=== PATIENT | female | born 1990 | race Caucasian/White ===

== ENCOUNTER 2023-09-01 20:46 | Outpatient (REF) | payer OTHER, SELFPAY ==
[2023-09-04 16:09] LABS: Age Gdln ACOG Testing Note (.); HPV Aptima Negative (Negative); IGP, Aptima HPV, rfx 16/18,45 Note (.)
== END 2023-09-01 20:47 | disposition home or self-care (01) ==
LOC: LAB 20:46
PROVIDERS: Visit Provider Obstetrics & Gynecology
DX: Z01.419 Encounter for gynecological examination (general) (routine) without abnormal findings (principal)
CPT/HCPCS: 87624; G0145

== ENCOUNTER 2023-09-10 10:46 | Emergency (ER) | payer OTHER, SELFPAY ==
[2023-09-10] VITALS (29 sets, daily range): BP systolic 116–142; BP diastolic 67–86; PULSE 82–119; RESP 12–38; TEMP 37.1; O2SAT 95–100; BMI 19.9
--- NOTE | 2023-09-10 11:05 | ECG_ITS ---
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
--- NOTE | 2023-09-10 11:07 | ED_ITS ---
HPI - Arrhythmia/Palpitations General Chief Complaint: Arrhythmia/Palpitations Stated Complaint: FAST HEART RATE Time Seen by Provider: 09/10/23 11:00 Source: patient Mode of arrival: walk-in History of Present Illness HPI narrative: Last night HR was in the 140s. She had pounding in her head and chest. Symptoms continue this morning although rate is less than last night. She did not take any caffeine this morning - she usually has 3 cups of coffee a day - no other caffeine or OTC supplements besides Vitamin D. She is breast feeding her infant, who is 9 months old. No history of SVT, afib, palpitations prior to this. The patient told me that she has vague symptoms - cloudiness of thought, aches to the back of the head, neck and upper shoulders/back, trouble concentrating. Uncertain about any potential ill exposures. Related Data Home Medications Medication Instructions Recorded Confirmed norethindrone (contraceptive) 0.35 0.35 mg PO DAILY 09/10/23 09/10/23 mg tablet (Jencycla) Allergies Allergy/AdvReac Type Severity Reaction Status Date / Time cefaclor [From [facility]] Allergy Severe Verified 09/10/23 11:01 Penicillins Allergy Severe Verified 09/10/23 11:01 Exam Narrative Exam Narrative: Nurses notes and vital signs reviewed and patient is not hypoxic. afebrile General: Well-appearing and in no apparent distress. Skin: Warm, dry, no pallor noted. No rash. Head: Normocephalic, atraumatic. Neck: Supple. No cervical lymphadenopathy. No meningismus. Diffuse soft tissue tenderness to the posterior neck and bilateral superior trapezii. Eye: Pupils are equal, round and EOMI. No scleral icterus. Ears, Nose, Mouth, and Throat: TM are clear, no posterior oropharynx erythema or nasal mucosal hypertrophy, uvula is mid-line Oral mucosa is moist Cardiovascular: tachycardia. Respiratory: No accessory muscle use or respiratory distress. Lungs are clear to auscultation, no wheezing, rales or rhonchi Back: No midline thoracic or lumbar vertebral tenderness. No CVA tenderness Musculoskeletal: normal ROM, no calf or popliteal tenderness, no lower extremity edema/swelling GI: Abdomen is soft, non-distended. Normal bowel sounds. No tenderness to palpation. No rebound, guarding, or rigidity noted. Neurological: A&O x4. No cranial nerve dysfunction observed. No truncal ataxia. Moves all extremities. Sensation intact. Psychiatric: Cooperative and interactive. Normal mood and affect. Constitutional Vital Signs, click to edit/add: Last Vital Signs Temp 98.7 F 09/10/23 10:56 Pulse 87 09/10/23 13:30 Resp 21 09/10/23 13:30 BP 117/82 09/10/23 13:30 Pulse Ox 100 09/10/23 13:30 O2 Del Method Room Air 09/10/23 11:05 Course Vital Signs Vital signs: Vital Signs Temperature 98.7 F 09/10/23 10:56 Pulse Rate 119 H 09/10/23 10:56 Respiratory Rate 18 09/10/23 10:56 Blood Pressure 142/86 H 09/10/23 10:56 Pulse Oximetry 98 09/10/23 10:56 Oxygen Delivery Method Room Air 09/10/23 10:56 Temperature 98.7 F 09/10/23 10:56 Pulse Rate 87 09/10/23 13:30 Respiratory Rate 21 09/10/23 13:30 Blood Pressure 117/82 09/10/23 13:30 Pulse Oximetry 100 09/10/23 13:30 Oxygen Delivery Method Room Air 09/10/23 11:05 MDM - Arrhythmia/Palpitations MDM Narrative Medical decision making narrative: Patient was placed on quality assurance monitor chassis and EKG obtained. Blood drawn and sent for evaluation. Respiratory panel obtained because of the patient's vague symptoms. She was ordered to receive normal saline IV fluid. WBC 12.4k, left shift noted. D dimer negative. CMP normal. TSH low at 0.258. T3 & T4 ordered to be checked. T4 normal. T3 is low - may have hypothyroidism. She remained tachycardic so she received another Liter NS IVF and 5mL Metoprolol IV. Her HR improved and she was discharged home. We discussed importance of PCP follow up to have thyroid further evaluated for primary anterior pituitary problem. Lab Data Attestation: I reviewed the patient's lab results. Labs: Lab Results 09/10/23 09/10/23 Range/Units 11:05 11:32 WBC 12.4 H (4.0-11.0) 10^3/uL RBC 4.45 (4.20-5.40) 10^6/uL Hgb 13.4 (12.0-16.0) g/dL Hct 40.7 (36.0-48.0) % MCV 91.5 (81.0-99.0) fL MCH 30.1 (26.7-34.0) pg MCHC 32.9 (29.9-35.2) g/dL RDW 12.7 (11.0-15.0) % Plt Count 237 (150-450) 10^3/uL MPV 10.1 (9.5-13.5) fL Neut % (Auto) 81.0 H (43.0-75.0) % Lymph % (Auto) 9.9 L (20.5-60.0) % [place] % (Auto) 8.5 (1.7-12.0) % Eos % (Auto) 0.1 L (0.9-7.0) % Baso % (Auto) 0.2 (0.2-2.0) % Neut # (Auto) 10.0 H (1.4-6.5) 10^3/uL Lymph # (Auto) 1.2 (1.2-3.8) 10^3/uL [place] # (Auto) 1.1 H (0.3-0.8) 10^3/uL Eos # (Auto) 0.0 (0.0-0.7) 10^3/uL Baso # (Auto) 0.0 (0.0-0.1) 10^3/uL Abs Immat Gran (auto) 0.04 H (0.00-0.03) 10^3/uL Imm/Tot Granulo (auto) 0.3 (0.0-0.5) % D-Dimer 0.24 (<=0.59) mg/L FEU Sodium 139 (136-145) mmol/L Potassium 3.8 (3.5-5.1) mmol/L Chloride 102 (98-107) mmol/L Carbon Dioxide 26.6 (21.0-32.0) mmol/L Anion Gap 14.2 BUN 11.0 (7.0-18.0) mg/dL Creatinine 0.72 (0.55-1.02) mg/dL Est GFR ( Amer) >60 (>=60) Est GFR (Non-Af Amer) >60 (>=60) BUN/Creatinine Ratio 15.3 Glucose 94 (74-106) mg/dL Calcium 8.8 (8.5-10.1) mg/dL Total Bilirubin 0.7 (0.2-1.0) mg/dL AST 15 (15-37) U/L ALT 27 (14-59) U/L Alkaline Phosphatase 163 H (46-116) U/L Total Protein 7.9 (6.4-8.2) g/dL Albumin 3.9 (3.4-5.0) g/dL Globulin 4.0 g/dL Albumin/Globulin Ratio 1.0 TSH 0.258 L (0.358-3.740) uIU/mL Free T4 0.88 (0.76-1.46) ng/dL Free T3 2.13 L (2.18-3.98) pg/mL Adenovirus (PCR) Not detected (NOT DETECTE) C. pneumoniae DNA (PCR) Not detected (NOT DETECTE) Coronavirus Type OC43 Not detected (NOT DETECTE) Coronavirus Type HKU1 Not detected (NOT DETECTE) Coronavirus Type 229E Not detected (NOT DETECTE) Coronavirus Type NL63 Not detected (NOT DETECTE) Human Metapneumovir PCR Not detected (NOT DETECTE) M. pneumoniae (PCR) Not detected (NOT DETECTE) Parainfluenza PCR Not detected (NOT DETECTE) Parainfluenza 2 (PCR) Not detected (NOT DETECTE) Parainfluenza 3 (PCR) Not detected (NOT DETECTE) Parainfluenza 4 (PCR) Not detected (NOT DETECTE) RSV (RT-PCR) Not detected (NOT DETECTE) Entero/Rhino (PCR) Not detected (NOT DETECTE) SARS-CoV-2 (PCR) Not detected (NOT DETECTE) Bordetella pertussis (PCR) Not detected (NOT DETECTE) B parapertussis DNA PCR Not detected (NOT DETECTE) Influenza Type A (PCR) Not detected (NOT DETECTE) Influenza Type B (PCR) Not detected (NOT DETECTE) ECG Data Attestation: I personally reviewed and interpreted this ECG as follows: Interpretation: EKG interpretation: Emergency Department physician interpretation. Sinus tachycardia at 108bpm. Normal axis, Short QTc interval. Inferolateral T wave inversion. No ST segment elevation. Subtle ST depression. Discharge Plan Discharge Chief Complaint: Arrhythmia/Palpitations Clinical Impression: Palpitations, Hypothyroidism Patient Disposition: Home, Self-Care Time of Disposition Decision: 14:04 Prescriptions / Home Meds: No Action norethindrone (contraceptive) [Jencycla] 0.35 mg tablet 0.35 mg PO DAILY Instructions: Heart Palpitations (ED), Hypothyroidism (ED) Stand Alone Forms: Portal Instructions Referrals: Physician,Non-Staff, MD [Primary Care Provider] - 1 week
[2023-09-10] MEDS: 0.9 % SODIUM CHLORIDE 1,000 ML 1000 ML IV ×2 (11:17→13:07)
[2023-09-10 11:18] LABS: Basophils Percent Auto 0.2 % (0.2-2.0); Eosinophils Percent Auto 0.1 % (0.9-7.0); Hematocrit 40.7 % (36.0-48.0); Hemoglobin 13.4 g/dL (12.0-16.0); Immature Granulocytes Abs Auto 0.04 10^3/uL (0.00-0.03); Immature Granulocytes Pct Auto 0.3 % (0.0-0.5); Lymphocytes Absolute Auto 1.2 10^3/uL (1.2-3.8); Lymphocytes Percent Auto 9.9 % (20.5-60.0); Mean Corpuscular HGB Conc 32.9 g/dL (29.9-35.2); Mean Corpuscular Hemoglobin 30.1 pg (26.7-34.0); Mean Corpuscular Volume 91.5 fL (81.0-99.0); Mean Platelet Volume 10.1 fL (9.5-13.5); Monocytes Absolute Auto 1.1 10^3/uL (0.3-0.8); Monocytes Percent Auto 8.5 % (1.7-12.0); Platelet Count 237 10^3/uL (150-450); Red Blood Count 4.45 10^6/uL (4.20-5.40); Red Cell Distribution Width 12.7 % (11.0-15.0); White Blood Count 12.4 10^3/uL (4.0-11.0)
[2023-09-10 11:29] LABS: D Dimer 0.24 mg/L FEU (<=0.59)
--- OUTSIDE RECORDS SUMMARY | 2023-09-10 11:30 | XMS_ITS | CCD ---
Author Name Unknown Address [address] [place] [address] Organization [facility] Care Team Providers Care Law Office Receptionist Name Role Phone Shannan Torres Unavailable Paulina Laguerre Unavailable WONDERLY, DR STEVE Enriquez Primary Care Unavailable DIEGO ., DR LOMAX Admitting Unavailable DIEGO ., DR LOMAX Attending Unavailable DIEGO ., DR LOMAX Consulting Unavailable REQUEST, DR NONE LISTED Primary Care Unavaila ble SCOTT ., HERNANDEZ Admitting Unavailable SCOTT ., HERNANDEZ Attending Unavailable SCOTT ., HERNANDEZ Consulting Unavailable DIEGO ., DR LOMAX Consulting Unavailable DIEGO ., DR LOMAX Admitting Unavailable DIEGO ., DR LOMAX Attending Unavailable ALEXANDRIA, DR FARZANEH Condon Consulting Unavailable DIEGO ., DR LOMAX Admitting Unavailable DIEGO ., DR LOMAX Attending Unavailable DIEGO ., DR LOMAX Consulting Unavailable DIEGO ., DR LOMAX Attending Unavailable DIEGO ., DR LOMAX Consulting Unavailable DIEGO ., DR LOMAX Admitting Unavailable ZIEBER, DR MEL Olsen Consulting Unavailable WONDERLY, DR STEVE Enriquez Consulting Unavailable WONDERLY, DR STEVE Enriquez Primary Care Unavailable DIEGO ., DR LOMAX Attending Unavailable DIEGO ., DR LOMAX Consulting Unavailable DIEGO ., DR LOMAX Admitting Unavailable DIEGO ., DR LOMAX Admitting Unavailable DIEGO ., DR LOMAX Attending Unavailable REQUEST, NONE LISTED Primary Care Unavaila ble SHEILA, DR STEVE Enriquez Primary Care Unavailable DIEGO ., DR LOMAX Admitting Unavailable DIEGO ., DR LOMAX Attending Unavailable DIEGO ., DR LOMAX Consulting Unavailable DIEGO ., DR LOMAX Procedure Practitioner Unavail able ZIEBER, DR MEL Olsen Consulting Unavailable REQUEST, DR NONE LISTED Primary Care Unavaila ble SCOTT ., HERNANDEZ Admitting Unavailable SCOTT ., HERNANDEZ Attending Unavailable SCOTT ., HERNANDEZ Consulting Unavailable PAY ., DR DAVIS Admitting Unavailable PAY ., DR DAVIS Attending Unavailable PAY ., DR DAVIS Consulting Unavailable DIEGO ., DR LOMAX Attending Unavailable DIEGO ., DR LOMAX Consulting Unavailable DIEGO ., DR LOMAX Admitting Unavailable DIEGO ., DR LOMAX Attending Unavailable DIEGO ., DR LOMAX Consulting Unavailable DIEGO ., DR LOMAX Admitting Unavailable WONDERLY, DR STEVE Enriquez Primary Care Unavailable DIEGO ., DR LOMAX Admitting Unavailable DIEGO ., DR LOMAX Consulting Unavailable DIEGO ., DR LOMAX Attending Unavailable DIEGO, DAMI Attending Unavailable Allergies Allergy Classification Reported Allergen(s) Allergy Type Date of Onset Reaction(s) Facility (1 source) Cefaclor Drug Allergy [facility] Other (1 source) Cefaclor Drug Allergy [facility] (1 source) Penicillins Drug allergy (disorder) [facility] Medications Current Medications Medication Drug Class(es) Dates Sig (Normalized) Sig (Original) Ethinyl Estradiol / Ferrous fumarate / Norethindrone (1 source) Estrogen Problems Active Problems Problem Classification Problem Date Documented Da te Episodic/Chronic Menstrual disorders (4 sources) Irregular menstruation, unspecified; Translations: [IRREGULAR MENSTRUATION UNSPECIFIED] Onset: 04-15-2022 Chronic Other complications of (3 sources) Maternal care for excessive growth, unspecified trimester, not applicable or unspecified; Translations: [MAT CARE EXCSS FTL GRTH UNS TRI UNS] Onset: 11-06-2022 Episodic Other complications of (1 source) Maternal care for excessive growth, third trimester, not applicable or unspecified; Translations: [MAT CARE EXCSS FTL GRTH 3RD TRI UNS] Onset: 11-09-2022 Episodic Other and delivery including normal (20 sources) Encounter for routine follow-up; Translations: [Encounter for supervision of normal , unspecified, third trimester] Onset: 05-12-2022 Episodic Residual codes; unclassified (1 source) 40 weeks gestation of ; Translations: [40 WEEKS GESTATION OF ] Onset: 12-11-2022 Episodic Residual codes; unclassified (1 source) 36 weeks gestation of ; Translations: [36 WEEKS GESTATION OF ] Onset: 11-09-2022 Episodic Unclassified (1 source) PERSONAL HISTORY OF COVID-19; Translations: [PERSONAL HISTORY OF COVID-19] Onset: 12-11-2022 Past or Other Problems Problem Classification Problem Date Documented Date Episodic/Chronic Diabetes mellitus without complication (1 source) Other abnormal glucose; Translations: [OTHER ABNORMAL GLUCOSE] Onset: 08-27-2022 Episodic Immunizations and screening for infectious disease (5 sources) Encounter for screening for other viral diseases; Translations: [Contact with and (suspected) exposure to other viral communicable diseases] Onset: 06-17-2021 Resolved: 06-21-2021 Episodic Other complications of (4 sources) Other specified related conditions, unspecified trimester; Translations: [OTH SPEC PREG RELATED COND UNS TRI] Onset: 08-23-2022 Episodic Other female genital disorders (1 source) Other specified noninflammatory disorders of vagina; Translations: [OTH SPEC NONINFLAMMATORY D/O VAGINA] Onset: 08-08-2022 Episodic Other screening for suspected conditions (not mental disorders or infectious disease) (9 sources) Encounter for screening for diabetes mellitus; Translations: [Encounter for screening for malignant neoplasm of cervix] Onset: 07-16-2022 Episodic Residual codes; unclassified (1 source) Weeks of gestation of not specified; Translations: [WEEKS GESTATION NOT SPEC] Onset: 08-27-2022 Episodic Viral infection (1 source) COVID-19 Onset: 06-21-2021 Resolved: 06-21-2021 Results Test Name Value Interpretation Reference Range Facility CBC AUTO DIFFon 12-03-2022 BASO # 0.0 103/ul Normal 0.0-0.1 [facility] Comment on above: Performed By: #### R UBIGG #### [facility] [address] [address] [address] Radha Yu Basophils/100 WBC (Bld) 0.2 % Normal 0.2-2.0 [facility] Comment on above: Performed By: #### R UBIGG #### [facility] [address] [address] [address] Radha Yu EO # 0.0 103/ul Normal 0.0-0.7 [facility] Comment on above: Performed By: #### R UBIGG #### [facility] [address] [address] [address] Radha Yu Eosinophils/100 WBC (Bld) 0.1 % Critically low 0.9-7.0 [facility] Comment on above: Performed By: #### R UBIGG #### [facility] [address] [place] [address] Dr. Radha Yu Erythrocyte distribution width (RBC) [Ratio] 13.2 % Normal 11.0-15.0 [facility] Comment on above: Performed By: #### R UBIGG #### [facility] [address] [place] [address] Dr. Radha Yu Hematocrit (Bld) [Volume fraction] 36.8 % Normal 36.0-48.0 [facility] Comment on above: Performed By: #### R UBIGG #### [facility] [address] [place] [address] Dr. Radha Yu Hemoglobin (Bld) [Mass/Vol] 12.3 g/dL Normal 12.0-16.0 [facility] Comment on above: Performed By: #### R UBIGG #### [facility] [address] [place] [address] Dr. Radha Yu IG # 0.09 10e3/ul Critically high 0.00-0.03 [facility] Comment on above: Performed By: #### R UBIGG #### [facility] [address] [place] [address] Dr. Radha Yu IG % 0.6 % Critically high 0.0-0.5 [facility] Comment on above: Performed By: #### R UBIGG #### [facility] [address] [place] [address] Dr. Radha Yu LYMPH # 1.9 103/ul Normal 1.2-3.8 [facility] Comment on above: Performed By: #### R UBIGG #### [facility] [address] [place] [address] Dr. Radha Yu Lymphocytes/100 WBC (Bld) 12.5 % Critically low 20.5-60.0 [facility] Comment on above: Performed By: #### R UBIGG #### [facility] [address] [place] [address] Dr. Radha Yu MANUAL DIFF REQ NO Normal [facility] Comment on above: Performed By: #### R UBIGG #### [facility] [address] [place] [address] Dr. Radha Yu MCH (RBC) [Entitic mass] 30.3 pg Normal 26.7-34.0 [facility] Comment on above: Performed By: #### R UBIGG #### [facility] [address] [place] [address] Dr. Radha Yu MCHC (RBC) [Mass/Vol] 33.4 g/dL Normal 29.9-35.2 [facility] Comment on above: Performed By: #### R UBIGG #### [facility] [address] [place] [address] Dr. Radha Yu MCV (RBC) [Entitic vol] 90.6 fL Normal 81.0-99.0 [facility] Comment on above: Performed By: #### R UBIGG #### [facility] [address] [place] [address] Dr. Radha Yu MONO # 1.1 103/ul Critically high 0.3-0.8 [facility] Comment on above: Performed By: #### R UBIGG #### [facility] [address] [place] [address] Dr. Radha Yu Monocytes/100 WBC (Bld) 7.4 % Normal 1.7-12.0 [facility] Comment on above: Performed By: #### R UBIGG #### [facility] [address] [place] [address] Dr. Radha Yu NEUT # 12.1 103/ul Critically high 1.4-6.[address] [facility] Comment on above: Performed By: #### R UBIGG #### [facility] [address] [place] [address] Dr. Radha Yu Neutrophils/100 WBC (Bld) 79.2 % Critically high 43.0-75.0 [facility] Comment on above: Performed By: #### R UBIGG #### [facility] [address] [place] [address] Dr. Radha Yu Platelet mean volume (Bld) [Entitic vol] 10.4 fL Normal 9.5-13.5 [facility] Comment on above: Performed By: #### R UBIGG #### [facility] [address] [place] [address] Dr. Radha Yu PLT 193 103/ul Normal 150-450 [facility] Comment on above: Performed By: #### R UBIGG #### [facility] [address] [place] [address] Dr. Radha Yu RBC 4.06 106/ul Critically low 4.20-5.40 [facility] Comment on above: Performed By: #### R UBIGG #### [facility] [address] [place] [address] Dr. Radha Yu WBC 15.2 103/ul Critically high 4.0-11.0 [facility] Comment on above: Performed By: #### R UBIGG #### [facility] [address] [place] [address] Dr. Radha Yu BASO # 0.0 103/ul Normal 0.0-0.1 [facility] Comment on above: Performed By: #### H CVPCRR #### [facility] [address] [place] [address] Dr. Radha Yu Basophils/100 WBC (Bld) 0.4 % Normal 0.2-2.0 [facility] Comment on above: Performed By: #### H CVPCRR #### [facility] [address] [place] [address] Dr. Radha Yu EO # 0.1 103/ul Normal 0.0-0.7 [facility] Comment on above: Performed By: #### H CVPCRR #### [facility] [address] [place] [address] Dr. Radha Yu Eosinophils/100 WBC (Bld) 1.0 % Normal 0.9-7.0 [facility] Comment on above: Performed By: #### H CVPCRR #### [facility] [address] [place] [address] Dr. Radha Yu Erythrocyte distribution width (RBC) [Ratio] 13.6 % Normal 11.0-15.0 [facility] Comment on above: Performed By: #### H CVPCRR #### [facility] [address] [place] [address] Dr. Radha Yu Hematocrit (Bld) [Volume fraction] 37.3 % Normal 36.0-48.0 [facility] Comment on above: Performed By: #### H CVPCRR #### [facility] [address] [place] [address] Dr. Radha Yu Hemoglobin (Bld) [Mass/Vol] 12.9 g/dL Normal 12.0-16.0 [facility] Comment on above: Performed By: #### H CVPCRR #### [facility] [address] [place] [address] Dr. Radha Yu IG # 0.03 10e3/ul Normal 0.00-0.03 [facility] Comment on above: Performed By: #### H CVPCRR #### [facility] [address] [place] [address] Dr. Radha Yu IG % 0.3 % Normal 0.0-0.5 [facility] Comment on above: Performed By: #### H CVPCRR #### [facility] [address] [place] [address] Dr. Radha Yu LYMPH # 2.8 103/ul Normal 1.2-3.8 [facility] Comment on above: Performed By: #### H CVPCRR #### [facility] [address] [place] [address] Dr. Radha Yu Lymphocytes/100 WBC (Bld) 27.0 % Normal 20.5-60.0 [facility] Comment on above: Performed By: #### H CVPCRR #### [facility] [address] [place] [address] Dr. Radha Yu MANUAL DIFF REQ NO Normal [facility] Comment on above: Performed By: #### H CVPCRR #### [facility] [address] [place] [address] Dr. Rahda Yu MCH (RBC) [Entitic mass] 30.4 pg Normal 26.7-34.0 [facility] Comment on above: Performed By: #### H CVPCRR #### [facility] [address] [place] [address] Dr. Radha Yu MCHC (RBC) [Mass/Vol] 34.6 g/dL Normal 29.9-35.2 [facility] Comment on above: Performed By: #### H CVPCRR #### [facility] [address] [place] [address] Dr. Radha Yu MCV (RBC) [Entitic vol] 88.0 fL Normal 81.0-99.0 [facility] Comment on above: Performed By: #### H CVPCRR #### [facility] [address] [place] [address] Dr. Radha Yu MONO # 1.0 103/ul Critically high 0.3-0.8 [facility] Comment on above: Performed By: #### H CVPCRR #### [facility] [address] [place] [address] Dr. Radha Yu Monocytes/100 WBC (Bld) 9.7 % Normal 1.7-12.0 [facility] Comment on above: Performed By: #### H CVPCRR #### [facility] [address] [place] [address] Dr. Radha Yu NEUT # 6.5 103/ul Normal 1.4-6.5 [facility] Comment on above: Performed By: #### H CVPCRR #### [facility] [address] [place] [address] Dr. Radha Yu Neutrophils/100 WBC (Bld) 61.6 % Normal 43.0-75.0 [facility] Comment on above: Performed By: #### H CVPCRR #### [facility] [address] [place] [address] Dr. Radha Yu Platelet mean volume (Bld) [Entitic vol] 11.9 fL Normal 9.5-13.5 [facility] Comment on above: Performed By: #### H CVPCRR #### [facility] [address] [address] [address] Radha Yu PLT 237 103/ul Normal 150-450 [facility] Comment on above: Performed By: #### H CVPCRR #### [facility] [address] [address] [address] Radha Yu RBC 4.24 106/ul Normal 4.20-5.40 [facility] Comment on above: Performed By: #### H CVPCRR #### [facility] [address] [place] [address] Dr. Radha Yu WBC 10.5 103/ul Normal 4.0-11.0 [facility] Comment on above: Performed By: #### H CVPCRR #### [facility] [address] [place] [address] Dr. Radha Yu DRUG SCREEN RAPID (URINE)on 12-03-2022 AMP Negative Normal NEGATIVE [facility] Comment on above: Performed By: #### R UBIGG #### [facility] [address] [place] [address] Dr. Radha Yu BAR Negative Normal NEGATIVE [facility] Comment on above: Performed By: #### R UBIGG #### [facility] [address] [place] [address] Dr. Radha Yu BUP Negative Normal NEGATIVE [facility] Comment on above: Performed By: #### R UBIGG #### [facility] [address] [place] [address] Dr. Radha Yu BZO Negative Normal NEGATIVE [facility] Comment on above: Performed By: #### R UBIGG #### [facility] [address] [place] [address] Dr. Radha Yu JOYCE Negative Normal NEGATIVE [facility] Comment on above: Performed By: #### R UBIGG #### [facility] [address] [place] [address] Dr. Radha Yu CUT-OFFS SEE BELOW Normal [facility] Comment on above: Result Comment: AMP (Amphetamine): 500ng/mL, BAR (Barbituates): 200 ng/mL, BZO (Benzodiazepines): 150 ng/mL, BUP (Buprenorphine): 10 ng/mL, JOYCE (Cocaine): 150 ng/mL, mAMP (Methamphetamine): 500 ng/mL, MTD (Methadone): 200 ng/mL, OPI (Opiates): 100 ng/mL, OXY (Oxycodone): 100 ng/mL, PCP (Phencyclidine): 25 ng/mL, PPX (Propoxyphene): 300 ng/mL, THC (Cannabinoids): 50 ng/mL, TCA (Trycyclic Antidepressants): 300 ng/mL Performed By: #### R UBIGG #### [facility] [address] [place] [address] Dr. Radha Yu DRUG CUT HEADER DRUG CLASS TEST SYSTEM CUT-OFF CONCENTRATIONS ARE FOLLOWS: Normal [facility] Comment on above: Performed By: #### R UBIGG #### [facility] [address] [place] [address] Dr. Radha Yu mAMP Negative Normal NEGATIVE [facility] Comment on above: Performed By: #### R UBIGG #### [facility] [address] [place] [address] Dr. Radha Yu MTD Negative Normal NEGATIVE [facility] Comment on above: Performed By: #### R UBIGG #### [facility] [address] [place] [address] Dr. Radha Yu OPI Negative Normal NEGATIVE [facility] Comment on above: Performed By: #### R UBIGG #### [facility] [address] [place] [address] Dr. Radha Yu OXY Negative Normal NEGATIVE [facility] Comment on above: Performed By: #### R UBIGG #### [facility] [address] [place] [address] Dr. Radha Yu PCP Negative Normal NEGATIVE [facility] Comment on above: Performed By: #### R UBIGG #### [facility] [address] [address] [address] Radha Yu PPX Negative Normal NEGATIVE [facility] Comment on above: Performed By: #### R UBIGG #### [facility] [address] [address] [address] Radha Yu TCA Negative Normal NEGATIVE [facility] Comment on above: Performed By: #### R UBIGG #### [facility] [address] [address] [address] Radha Yu THC Negative Normal NEGATIVE [facility] Comment on above: Performed By: #### R UBIGG #### [facility] [address] [place] [address] Dr. Radha Yu TYPE AND SCREENon 12-03-2022 TYPE AND SCREEN Negative Normal [facility] Comment on above: Performed By: #### H CVPCRR #### [facility] [address] [place] [address] Dr. Radha Yu US PREG GROWTHon 11-06-2022 US PREG GROWTH EXAMINATION: US PREG GROWTH HISTORY: Large for gestation age fetus COMPARISON: Ultrasound anatomy 07/12/2022 FINDINGS: Heart Rate: 149.0 bpm Number: 1.0 Position: Cephalic Amniotic Fluid Volume: 21.0 cm Maximum Vertical Pocket: 7.0 cm BIOMETRY: BPD: 9.1 cm cm; 36 weeks 5 days HC: 33.4 cmcm; 38 weeks 2 days AC: 32.5 cm cm; 36 weeks 3 days FL: 7.1 cm cm; 36 weeks 3 days EFW: 2997.5 grams; 53% FL/AC: 21.8 FL/BPD: 78.4 HC/AC: 1.0 GESTATIONAL AGE: Age by EDC: 36 weeks 5 days MIKE by EDC: 11/29/2022 Age by US: 37 weeks 0 days MIKE by US: 11/27/2022 IMPRESSION: 1. Single live intrauterine with growth detailed above. Electronically authenticated by: MEL OLIVIER Date: 2022-11-06 16:26 Normal [facility] GROUP B STREP CULTUREon 10-16 S. agalactiae Ag Ql (Unsp spec) Culture Observations: NEGATIVE FOR GROUP B STREPTOCOCCUS. Normal [facility] Comment on above: Performed By: #### H CVPCRR #### [facility] [address] [place] [address] Dr. Radha Yu GTT 3 HR PREGon 08-23-2022 Glucose [Mass/Vol] 77 mg/dL Normal 74-106 [facility] Comment on above: Performed By: #### H CVPCRR #### [facility] [address] [place] [address] Dr. Radha Yu Glucose [Mass/Vol] 169 mg/dL Normal [facility] Comment on above: Performed By: #### H CVPCRR #### [facility] [address] [place] [address] Dr. Radha Yu Glucose [Mass/Vol] 152 mg/dL Normal [facility] Comment on above: Performed By: #### H CVPCRR #### [facility] [address] [place] [address] Dr. Radha Yu Glucose [Mass/Vol] 107 mg/dL Normal [facility] Comment on above: Performed By: #### H CVPCRR #### [facility] [address] [place] [address] Dr. Radha Yu PAP ACOG PANEL 2: 30 to 65on 08-15-2022 . . Normal [facility] Comment on above: Result Comment: Perf ormed at: [facility] Performed By: #### R UBIGG #### [facility] [address] [place] [address] Dr. Radha Yu Age Gdln ACOG Testing 30-65 [facility] Comment on above: Performed By: #### R UBIGG #### [facility] [address] [place] [address] Dr. Radha Yu DIAGNOSIS: Comment [facility] Comment on above: Result Comment: NEGA TIVE FOR INTRAEPITHELIAL LESION OR MALIGNANCY. FUNGAL ORGANISMS MORPHOLOGICALLY CONSISTENT WITH JILLIAN SPECIES ARE PRESENT. THIS SPECIMEN WAS RESCREENED PART OF OUR [employer]LEET MANAGER PROGRAM. Performed at: [facility] Performed By: #### R UBIGG #### [facility] [address] [place] [address] Dr. Radha Yu HPV Aptima Negative Normal Negative [facility] Comment on above: Result Comment: This nucleic acid amplification test detects fourteen high-risk HPV types (16,18,31,33,35,39,45,51,52,56,58,59,66,68) without differentiation. Performed at: =G Performed By: #### R UBIGG #### [facility] [address] [place] [address] Dr. Radha Yu HPV Genotype Reflex Comment Normal [facility] Comment on above: Result Comment: Crit eria not met, HPV Genotype not performed. Performed at: [facility] Performed By: #### R UBIGG #### [facility] [address] [place] [address] Dr. Radha Yu Methodology: Comment Normal [facility] Comment on above: Result Comment: This liquid based ThinPrep(R) pap test was screened with the use of an image guided system. Performed at: [facility] Performed By: #### R UBIGG #### [facility] [address] [place] [address] Dr. Radha Yu Note: Comment Normal [facility] Comment on above: Result Comment: The Pap smear is a screening test designed to aid in the detection of premalignant and malignant conditions of the uterine cervix. It is not a diagnostic procedure and should not be used as the sole means of detecting cervical cancer. Both false-positive and false-negative reports do occur. . Performed at: WB Performed By: #### R UBIGG #### [facility] [address] [place] [address] Dr. Radha Yu Performed by: Comment Normal [facility] Comment on above: Result Comment: Ambreen Matias, Labels Molder (ASCP) Performed at: WB Performed By: #### R UBIGG #### [facility] [address] [place] [address] Dr. Radha Yu QC reviewed by: Comment Normal [facility] Comment on above: Result Comment: Tanya Mueller, Supervisory Labels Molder (ASCP) Performed at: WB Performed By: #### R UBIGG #### [facility] [address] [place] [address] Dr. Radha Yu Specimen adequacy: Comment Normal [facility] Comment on above: Result Comment: Sati sfactory for evaluation. Endocervical and/or squamous metaplastic cells (endocervical component) are present. Performed at: WB Performed By: #### R UBIGG #### [facility] [address] [place] [address] Dr. Radha Yu CBC AUTO DIFFon 08-07-2022 BASO # 0.0 103/ul Normal 0.0-0.1 [facility] Comment on above: Performed By: #### C BC #### [facility] [address] [place] [address] Dr. Radha Yu Basophils/100 WBC (Bld) 0.2 % Normal 0.2-2.0 [facility] Comment on above: Performed By: #### C BC #### [facility] [address] [place] [address] Dr. Radha Yu EO # 0.0 103/ul Normal 0.0-0.7 [facility] Comment on above: Performed By: #### C BC #### [facility] [address] [place] [address] Dr. Radha Yu Eosinophils/100 WBC (Bld) 0.4 % Critically low 0.9-7.0 [facility] Comment on above: Performed By: #### C BC #### [facility] [address] [place] [address] Dr. Radha Yu Erythrocyte distribution width (RBC) [Ratio] 13.2 % Normal 11.0-15.0 [facility] Comment on above: Performed By: #### C BC #### [facility] [address] [place] [address] Dr. Radha Yu Hematocrit (Bld) [Volume fraction] 34.1 % Critically low 36.0-48.0 [facility] Comment on above: Performed By: #### C BC #### [facility] [address] [place] [address] Dr. Radha Yu Hemoglobin (Bld) [Mass/Vol] 11.4 g/dL Critically low 12.0-16.0 [facility] Comment on above: Performed By: #### C BC #### [facility] [address] [place] [address] Dr. Radha Yu IG # 0.03 10e3/ul Normal 0.00-0.03 [facility] Comment on above: Performed By: #### C BC #### [facility] [address] [place] [address] Dr. Radha Yu IG % 0.3 % Normal 0.0-0.5 [facility] Comment on above: Performed By: #### C BC #### [facility] [address] [place] [address] Dr. Radha Yu LYMPH # 1.9 103/ul Normal 1.2-3.8 [facility] Comment on above: Performed By: #### C BC #### [facility] [address] [place] [address] Dr. Radha Yu Lymphocytes/100 WBC (Bld) 18.8 % Critically low 20.5-60.0 [facility] Comment on above: Performed By: #### C BC #### [facility] [address] [place] [address] Dr. Radha Yu MANUAL DIFF REQ NO Normal [facility] Comment on above: Performed By: #### C BC #### [facility] [address] [place] [address] Dr. Radha Yu MCH (RBC) [Entitic mass] 31.1 pg Normal 26.7-34.0 [facility] Comment on above: Performed By: #### C BC #### [facility] [address] [place] [address] Dr. Radha Yu MCHC (RBC) [Mass/Vol] 33.4 g/dL Normal 29.9-35.2 [facility] Comment on above: Performed By: #### C BC #### [facility] [address] [place] [address] Dr. Radha Yu MCV (RBC) [Entitic vol] 92.9 fL Normal 81.0-99.0 [facility] Comment on above: Performed By: #### C BC #### [facility] [address] [place] [address] Dr. Radha Yu MONO # 0.4 103/ul Normal 0.3-0.8 [facility] Comment on above: Performed By: #### C BC #### [facility] [address] [place] [address] Dr. Radha Yu Monocytes/100 WBC (Bld) 4.4 % Normal 1.7-12.0 [facility] Comment on above: Performed By: #### C BC #### [facility] [address] [place] [address] Dr. Radha Yu NEUT # 7.5 103/ul Critically high 1.4-6.5 [facility] Comment on above: Performed By: #### C BC #### [facility] [address] [place] [address] Dr. Radha Yu Neutrophils/100 WBC (Bld) 75.9 % Critically high 43.0-75.0 [facility] Comment on above: Performed By: #### C BC #### [facility] [address] [place] [address] Dr. Radha Yu Platelet mean volume (Bld) [Entitic vol] 9.8 fL Normal 9.5-13.5 [facility] Comment on above: Performed By: #### C BC #### [facility] [address] [place] [address] Dr. Radha Yu PLT 250 103/ul Normal 150-450 [facility] Comment on above: Performed By: #### C BC #### [facility] [address] [place] [address] Dr. Radha Yu RBC 3.67 106/ul Critically low 4.20-5.40 [facility] Comment on above: Performed By: #### C BC #### [facility] [address] [place] [address] Dr. Radha Yu WBC 9.8 103/ul Normal 4.0-11.0 [facility] Comment on above: Performed By: #### C BC #### [facility] [address] [place] [address] Dr. Radha Yu CHLAMYDIA/GONOCOCCUS DANELLE (SW AB/URINE/PAPon 08-07-2022 Chlamydia trachomatis, DANELLE Negative Normal Negative [facility] Comment on above: Performed By: #### C T/NGNA #### [facility] [address] [address] [address] Radha Yu Neisseria gonorrhoeae, DANELLE Negative Normal Negative [facility] Comment on above: Performed By: #### C T/NGNA #### [facility] [address] [place] [address] Dr. Radha Yu GLUCOSE - 1HRon 08-07-2022 Glucose [Mass/Vol] 151 mg/dL Critically high 74-106 [facility] Comment on above: Performed By: #### G LU1HR #### [facility] [address] [place] [address] Dr. Radha Yu VAGINITIS/VAGINOSIS DNA PROB Sean 08-06-2022 Jillian species Positive Abnormal Negative [facility] Comment on above: Performed By: #### R UBIGG #### [facility] [address] [place] [address] Dr. Radha Yu Gardnerella vaginalis Negative Normal Negative [facility] Comment on above: Performed By: #### R UBIGG #### [facility] [address] [place] [address] Dr. Radha Yu Trichomonas vaginalis Negative Normal Negative [facility] Comment on above: Performed By: #### R UBIGG #### [facility] [address] [place] [address] Dr. Radha Yu AFP MATERNAL FOR SPINA BIFID Aon 07-16-2022 AFP MoM 1.29 Normal [facility] Comment on above: Performed By: #### R UBIGG #### [facility] [address] [place] [address] Dr. Radha Yu AFP Value 75.6 ng/mL Normal [facility] Comment on above: Performed By: #### R UBIGG #### [facility] [address] [address] [address] Radha Yu AFP, Serum for Spina Bifida Report Normal [facility] Comment on above: Performed By: #### R UBIGG #### [facility] [address] [address] [address] Radha Yu Comment Comment Normal [facility] Comment on above: Result Comment: Adele Montez, Ph.D., [facility] Director . References: Available Upon Request. . Multiples Of Median Cutoffs For AFP Elevations Valdez 2.5 Black 2.8 IDD 2.0 Twins 4.5 Abbreviation Definitions IDD - Insulin Dep Diabetes OSBR - Open Spina Bifida Risk . For further inquiries contact [employer] [facility] at [phone]. . This test was developed and its performance characteristics determined by [employer]. It has not been cleared or approved by the Food and Drug Administration. Performed By: #### R UBIGG #### [facility] [address] [address] [address] aRdha Yu Gest Age Collection Date 20.0 weeks Normal [facility] Comment on above: Performed By: #### R UBIGG #### [facility] [address] [address] [address] Radha Yu Gestat, Age Based on Ultrasound Normal [facility] Comment on above: Result Comment: 8.0 on 04/19/2022 Recalculations are not recommended when gestational dating by LMP and ultrasound are within 10 days. Performed By: #### R UBIGG #### [facility] [address] [place] [address] Dr. Radha Yu Insulin Dep Diabetes No Normal [facility] Comment on above: Performed By: #### R UBIGG #### [facility] [address] [place] [address] Dr. Radha Yu Interpretation Comment Normal [facility] Comment on above: Result Comment: Inte rpretation: Screen Negative . This result is screen negative for OSB. The AFP MoM calculated is based on the gestational age provided. MS-AFP can identify up to 80% of open neural tube defects. Closed neural tube defects and some open defects may not be detected by this test. This test does not screen for Down Syndrome or Trisomy 18. If screening for Down Syndrome or Trisomy 18 is desired, contact [employer] to discuss available options. The [employer] recommends amniocentesis be offered to women age 35 and older. Performed By: #### R UBIGG #### [facility] [address] [place] [address] Dr. Radha Yu [age] Normal [facility] Comment on above: Performed By: #### R UBIGG #### [facility] [address] [place] [address] Dr. Radha Yu Multiple Gestation No Normal [facility] Comment on above: Performed By: #### R UBIGG #### [facility] [address] [place] [address] Dr. Radha Yu OSBR Risk 1 [place] 4947 Normal [facility] Comment on above: Performed By: #### R UBIGG #### [facility] [address] [place] [address] Dr. Radha Yu PDF . [facility] Comment on above: Performed By: #### R UBIGG #### [facility] [address] [place] [address] Dr. Radha Yu Race [facility] Comment on above: Performed By: #### R UBIGG #### [facility] [address] [place] [address] Dr. Radha Yu Test Results: Negative Normal [facility] Comment on above: Performed By: #### R UBIGG #### [facility] [address] [place] [address] Dr. Radha Yu US PREG ANATOMY SINGLEon US PREG ANATOMY SINGLE EXAMINATION: US PREG ANATOMY SINGLE HISTORY: Patient currently COMPARISON: No relevant comparison available. TECHNIQUE: Transabdominal sonographic examination was performed for obstetrical and evaluation. FINDINGS: Number: 1 Heart Rate: 142.9 bpm H.B. /min Amniotic Fluid Volume: Subjectively normal Placental Location: Anterior with lower margin 3.6 cm from os. Cervix Length: 4.1 cm, closed. ANATOMY: Normal Structures -cerebellum, choroid plexus, cisterna magna, lateral cerebral ventricles, orbits, midline falx, hard palate, four-chamber heart, RVOT, LVOT, stomach, kidneys, bladder, umbilical cord insertion into abdomen, three-vessel cord, cervical spine, thoracic spine, lumbar spine, sacral spine, right upper extremity, left upper extremity, right lower extremity, left lower extremity. SUBOPTIMALLY SEEN: None ABNORMALITIES: None BIOMETRY: BPD: 4.8 cm 20 weeks 3 days HC: 17.5 cm 20 weeks 0 days AC: 15.9 cm 21 weeks 0 days FL: 3.4 cm 20 weeks 6 days EFW:378.3 grams; 87% FL/AC: 21.6 FL/BPD: 72.2 HC/AC: 1.1 GESTATIONAL AGE: Age by EDC: 20 weeks 0 days MIKE by EDC: 11/29/[birth year]22 Age by current US: 20 weeks 4 days MIKE by current US: [id number] IMPRESSION: 1. Single live intrauterine with growth detailed above. 2. No appreciable abnormality. Electronically authenticated by: MEL OLIVIER Date: 2022-07-14 08:53 Normal [facility] HEP B SURFACE ANTIGEN SCREEN on 05-14-2022 HBsAg Screen Negative Normal Negative [facility] Comment on above: Performed By: #### H BSANS #### [facility] [address] [address] [address] Radha Yu HEPATITIS C VIRUS AB W/ REFL EX QUANTon 05-14-2022 HCV AB <0.1 Normal 0.0-0.9 [facility] Comment on above: Performed By: #### H CVPCRR #### [facility] [address] [address] [address] Radha Yu Interpretation: Comment Normal [facility] Comment on above: Result Comment: Nega tive Not infected with HCV, unless recent infection is suspected or other evidence exists to indicate HCV infection. Performed By: #### H CVPCRR #### [facility] [address] [address] [address] Radha Yu HIV 1 AND 2 WITH REFLEXon HIV Screen 4th Generation wRfx Non-Reactive Normal Non Reactive [facility] Comment on above: Result Comment: HIV Negative HIV-1/HIV-2 antibodies and HIV-1 p24 antigen were NOT detected. There is no laboratory evidence of HIV infection. Performed By: #### H CVPCRR #### [facility] [address] [place] [address] Dr. Radha Yu RPR QUANTon 05-14-2022 Rapid Plasma Reagin, Quant Non-Reactive Normal NonRea<1:1 [facility] Comment on above: Result Comment: Plea se Note: This test does not meet current guidelines for screening and diagnosis of syphilis. This test is intended for following treatment response in patients being treated for syphilis infection. To screen for syphilis infection, a reflex cascade that includes both RPR and a treponema-specific assay should be utilized, such as Treponema pallidum (Syphilis) Screening Dickinson (895202) or Rapid Plasma Reagin (RPR) Test With Reflex to Quantitative RPR and Confirmatory Treponema pallidum Antibodies (690081). Performed By: #### H CVPCRR #### [facility] [address] [place] [address] Dr. Radha Yu RUBELLA AB IGGon 05-14-2022 Rubella Antibodies, IgG 17.60 index Normal Immune >0.99 [facility] Comment on above: Result Comment: Non- immune <0.90 Equivocal 0.90 - 0.99 Immune >0.99 Performed By: #### R UBIGG #### [facility] [address] [place] [address] Dr. Radha Yu CBC AUTO DIFFon 05-12-2022 BASO # 0.0 103/ul Normal 0.0-0.1 [facility] Comment on above: Performed By: #### C BC #### [facility] [address] [place] [address] Dr. Radha Yu Basophils/100 WBC (Bld) 0.3 % Normal 0.2-2.0 [facility] Comment on above: Performed By: #### C BC #### [facility] [address] [place] [address] Dr. Radha Yu EO # 0.2 103/ul Normal 0.0-0.7 [facility] Comment on above: Performed By: #### C BC #### [facility] [address] [place] [address] Dr. Radha Yu Eosinophils/100 WBC (Bld) 1.7 % Normal 0.9-7.0 [facility] Comment on above: Performed By: #### C BC #### [facility] [address] [place] [address] Dr. Radha Yu Erythrocyte distribution width (RBC) [Ratio] 12.3 % Normal 11.0-15.0 [facility] Comment on above: Performed By: #### C BC #### [facility] [address] [place] [address] Dr. Radha Yu Hematocrit (Bld) [Volume fraction] 38.5 % Normal 36.0-48.0 [facility] Comment on above: Performed By: #### C BC #### [facility] [address] [place] [address] Dr. Radha Yu Hemoglobin (Bld) [Mass/Vol] 12.9 g/dL Normal 12.0-16.0 [facility] Comment on above: Performed By: #### C BC #### [facility] [address] [place] [address] Dr. Radha Yu IG # 0.01 10e3/ul Normal 0.00-0.03 [facility] Comment on above: Performed By: #### C BC #### [facility] [address] [place] [address] Dr. Radha Yu IG % 0.1 % Normal 0.0-0.5 [facility] Comment on above: Performed By: #### C BC #### [facility] [address] [place] [address] Dr. Radha Yu LYMPH # 1.9 103/ul Normal 1.2-3.8 [facility] Comment on above: Performed By: #### C BC #### [facility] [address] [place] [address] Dr. Radha Yu Lymphocytes/100 WBC (Bld) 21.3 % Normal 20.5-60.0 [facility] Comment on above: Performed By: #### C BC #### [facility] [address] [place] [address] Dr. Radha Yu MANUAL DIFF REQ NO Normal [facility] Comment on above: Performed By: #### C BC #### [facility] [address] [place] [address] Dr. Radha Yu MCH (RBC) [Entitic mass] 31.5 pg Normal 26.7-34.0 [facility] Comment on above: Performed By: #### C BC #### [facility] [address] [place] [address] Dr. Radha Yu MCHC (RBC) [Mass/Vol] 33.5 g/dL Normal 29.9-35.2 [facility] Comment on above: Performed By: #### C BC #### [facility] [address] [place] [address] Dr. Radha Yu MCV (RBC) [Entitic vol] 93.9 fL Normal 81.0-99.0 [facility] Comment on above: Performed By: #### C BC #### [facility] [address] [place] [address] Dr. Radha Yu MONO # 0.5 103/ul Normal 0.3-0.8 [facility] Comment on above: Performed By: #### C BC #### [facility] [address] [place] [address] Dr. Radha Yu Monocytes/100 WBC (Bld) 6.0 % Normal 1.7-12.0 [facility] Comment on above: Performed By: #### C BC #### [facility] [address] [place] [address] Dr. Radha Yu NEUT # 6.1 103/ul Normal 1.4-6.5 [facility] Comment on above: Performed By: #### C BC #### [facility] [address] [place] [address] Dr. Radha Yu Neutrophils/100 WBC (Bld) 70.6 % Normal 43.0-75.0 [facility] Comment on above: Performed By: #### C BC #### [facility] [address] [address] [address] Radha Yu Platelet mean volume (Bld) [Entitic vol] 9.8 fL Normal 9.5-13.5 [facility] Comment on above: Performed By: #### C BC #### [facility] [address] [address] [address] Radha Yu PLT 276 103/ul Normal 150-450 [facility] Comment on above: Performed By: #### C BC #### [facility] [address] [address] [address] Radha Yu RBC 4.10 106/ul Critically low 4.20-5.40 [facility] Comment on above: Performed By: #### C BC #### [facility] [address] [place] [address] Dr. Radha Yu WBC 8.7 103/ul Normal 4.0-11.0 [facility] Comment on above: Performed By: #### C BC #### [facility] [address] [place] [address] Dr. Radha Yu CULTURE URINEon 05-12-2022 CULTURE URINE Culture Observations: LIGHT GROWTH OF MIXED GENITAL SAGRARIO. NO POTENTIAL PATHOGENS SEEN. Normal [facility] Comment on above: Performed By: #### H CVPCRR #### [facility] [address] [place] [address] Dr. Radha Yu GLYCOHEMOGLOBIN A1Con 2021 ADA RECOMMENDATION SEE BELOW Normal [facility] Comment on above: Result Comment: ADA RECOMMENDED LIMIT 4.0 - 6.0 ADA THERAPEUTIC TARGET < 7.0 ACTION SUGGESTED > 7.0 Performed By: #### R UBIGG #### [facility] [address] [place] [address] Dr. Radha Yu Glucose [Mass/Vol] 91 mg/dL Normal [facility] Comment on above: Performed By: #### R UBIGG #### [facility] [address] [place] [address] Dr. Radha Yu HbA1c (Bld) [Mass fraction] 4.8 % Normal 4.5-6.2 [facility] Comment on above: Performed By: #### R UBIGG #### [facility] [address] [place] [address] Dr. Radha JAQUEZ BOX TEST PT SEND OUTo n 05-12-2022 SENT TO REF LAB 05/12/2022 Normal [facility] Comment on above: Performed By: #### N BOX #### [facility] [address] [place] [address] Dr. Radha Yu HEP A AB TOTALon 04-25-2022 Hep A Ab, Total Negative Normal Negative [facility] Comment on above: Performed By: #### H EPBSRF, HEPABT #### [facility] [address] [place] [address] Dr. Radha Yu HEPATITIS B SURFACE ANTIBODY , QUANTon 04-25-2022 Hepatitis B Surf AB Quant 967.8 mIU/mL Normal Immunity>9.9 [facility] Comment on above: Result Comment: Stat us of Immunity Anti-HBs Level Inconsistent with Immunity 0.0 - 9.9 Consistent with Immunity >9.9 Performed By: #### H EPBSRF, HEPABT #### [facility] [address] [place] [address] Dr. Radha Yu US PREG TVon 04-22-2022 US PREG TV EXAMINATION: US PREG TV HISTORY: Irregular periods COMPARISON: 01/17/2021 FINDINGS: Transvaginal images Indeterminate for twin intrauterine gestation. No pole identified in the second gestational sac which measures 6 weeks 0 days Gestational sac: Normal morphology, 2.69 cm, 7 weeks 3 days CRL: 2.0 cm, 8 weeks 4 days Yolk sac: 0.6 cm Heart rate: 167 BPM Cervix: Closed, 4.7 cm The uterus is normal in appearance, anteverted The right ovary is normal in appearance measuring 2.8 x 2.0 x 1.6 cm Left ovary measures 2.7 x 2.7 cm, corpus luteal cyst Ultrasound age: 8 weeks 0 days Ultrasound MIKE: 11/29/2022 IMPRESSION: Suspected twin intrauterine gestation. The first gestational sac has a viable intrauterine gestation measuring 8 weeks 0 days, the second sac has no definite pole Electronically authenticated by: FARZANEH CHEUNG Date: 2022-04-22 07:47 Normal [facility] HCG-BETA SUBUNIT QUANTon hCG,Beta Subunit,Qnt,Serum 211920 mIU/mL Normal [facility] Comment on above: Result Comment: Fema le (Non-) 0 - 5 (Postmenopausal) 0 - 8 . Female () Weeks of Gestation 3 6 - 71 4 10 - 750 5 139 - 6489 6 844 - 53301 7 8275 -266504 8 68986 -669115 9 98846 -146416 10 15820 -310849 12 50437 -095654 14 23392 - 65854 15 14904 - 16035 16 0823 - 36302 17 3132 - 00336 18 5793 - 35449 Results confirmed on dilution. Bungles Jungles ECLIA methodology Performed By: #### R UBIGG #### [facility] [address] [place] [address] Dr. Radha Yu COVID Quick Testingon 2020 Result Negative [email or web address] Other Vital Signs Date Time Vital Sign Value Performing Clinician Faci lity 07-16-2022 02:06-0500 Body weight 68.[address] STEVE SOSA [facility] Comment on above: Performed By: #### R UBIGG #### [facility] [address] [address] [address] Rdaha Yu Encounters Encounter Date Encounter Type Care Provider Facility Start: 09-01-2023 End: 09-01-2023 ambulatory DAMI CORTEZ Not Available Start: 12-09-2022 End: 12-09-[address] DAMI CORTEZ . Facility:[facility] Start: 12-03-2022 End: 12-04-2022 Evaluation and management of inpatient DR STEVE SOSA Facility:[facility] Start: 11-06-2022 End: 11-07-[address] MEL OLIVIER Facility:[facility] Start: 11-05-2022 End: 11-05-2022 ambulatory NONE LISTED REQUEST Facility:[facility] Start: 08-23-2022 End: 08-24-[address] STEVE SOSA Facility:[facility] Start: 08-07-2022 End: 08-08-[address] STEVE SOSA Facility:[facility] Start: 08-04-2022 End: 08-04-[address] STEVE SOSA Facility:[facility] Start: 07-12-2022 End: 07-13-[address] DAMI CORTEZ . Facility:[facility] Start: 05-12-2022 End: 05-13-[address] DAMI CORTEZ . Facility:[facility] Start: 04-24-2022 End: 04-24-[address] RYAN LUKE . Facility:[facility] Start: 04-19-2022 End: 04-20-[address] FARZANEH CHEUNG Facility:[facility] Start: 04-15-2022 End: 04-16-[address] DAMI CORTEZ . Facility:[facility] Start: 06-21-2021 End: 06-21-2021 ambulatory Paulina Laguerre Other [email or web address] Other Start: 06-21-2021 Office outpatient visit 15 minutes Paulina Laguerre [facility] Start: 06-17-2021 End: 06-17-2021 ambulatory Shannan Torres Other [email or web address] Other Start: 06-17-2021 Office outpatient visit 5 minutes Shannan Torres [facility] Procedures Date Procedure Procedure Detail Performing Clinician Start: 12-02-2022 Delivery of Products of Conception, External Approach DR STEVE SOSA Payers Date Payer Category Payer Unknown [id number] 2.16.84 [id number] 1991 Unknown [id number] .16.84 0.1.581592.3.579.2.593 1991 Unknown [id number] 2.16.84 0.1.070787.3.579.2.593 1991 Unknown [id number] 2.16.84 0.1.157396.3.579.2.593 1991 Unknown [id number] 2.16.84 0.1.945342.3.579.2.593 1991 Unknown [id number] 2.16.84 0.1.916552.3.579.2.593 1991 Unknown [id number] 2.16.84 0.1.058565.3.579.2.593 1991 Unknown [id number] 2.16.84 0.1.872796.3.579.2.593 1991 Unknown [id number] 2.16.84 0.1.857635.3.579.2.593 1991 Unknown [id number] 2.16.84 0.1.550379.3.579.2.593 1991 Unknown [id number] 2.16.84 0.1.608738.3.579.2.593 1991 Unknown [id number] 2.16.84 0.1.788529.3.579.2.1259 1959 Self-pay 1959 Unknown [id number] Unknown [id number] 2.16. 840.1.413526.19 Unknown [id number] 2.16.84 0.1.213965.3.579.2.593 Unknown [id number] 2.16.84 0.1.126244.3.579.2.593 Social History Date Type Detail Facility Sex Assigned At [email or web address] Other Evaluation note 06-17-2021 Note Date & Type Note Facility 06-17-2021 Evaluation note Encounter Date Diagnosis Assessment Notes Jun, Encounter for screening for other viral diseases (ICD-10 - Z11.59) Jun, Other Additional time spent conducting pre-visit phone call, screening for symptoms, instructions on social distancing, application and removal of PPE, and cleaning of examination room, equipment and supplies was preformed. Patient education given for testing methodology and results. Patient care instructions given in writting by [facility] At Home document. [facility] [employer] Other Evaluation note Note Date & Type Note Facility Evaluation note [facility] [employer] Other Summary Purpose Family History No Family History Records FoundNo Family History Records Found Advance Directives No Advanced Directives Records FoundNo Advanced Directives Records Found Additional Source Comments REASON FOR VISIT (unrecogniz ed section and content) #29 SILVER CRV, COVID EXPOSU RE, COVID Nurse Visit- Self Pay INFORMATION SOURCE (unrecogn ized section and content) DATE CREATED AUTHOR 12/12/2022 [facility] DATE CREATED AUTHOR AUTHOR'S ORGANIZ ATION 09/01/2023 [facility] FOR RECORDS PERTAINING TO PATIENTS WHO ARE OR HAVE BEEN ENROLLED IN A CHEMICAL DEPENDENCY/SUBSTANCEABUSE PROGRAM, SOME INFORMATION MAY BE OMITTED. This clinical summary was aggregated from multiple sources. Caution should be exercised in using it in the provision of clinical care. This summary normalizes information from multiple sources, and as a consequence, information in this document may materially change the coding, format and clinical context of patient data. In addition, data may be omitted in some cases. CLINICAL DECISIONS SHOULD BE BASED ON THE PRIMARY CLINICAL RECORDS. [employer] provides no warranty or guarantee of the accuracy or completeness of information in this document.
[2023-09-10 11:31] LABS: Alanine Aminotransferase 27 U/L (14-59); Albumin Level 3.9 g/dL (3.4-5.0); Alkaline Phosphatase 163 U/L (46-116); Anion Gap 14.2; Aspartate Amino Transferase 15 U/L (15-37); BUN Creatinine Ratio 15.3; Bilirubin Total 0.7 mg/dL (0.2-1.0); Calcium 8.8 mg/dL (8.5-10.1); Carbon Dioxide 26.6 mmol/L (21.0-32.0); Chloride 102 mmol/L (98-107); Estimated GFR (African America >60 (>=60); Estimated GFR (Non-African Ame >60 (>=60); Glucose 94 mg/dL (74-106); Potassium 3.8 mmol/L (3.5-5.1); Sodium 139 mmol/L (136-145); Total Protein 7.9 g/dL (6.4-8.2)
[2023-09-10 11:38] LABS: Thyroid Stimulating Hormone 0.258 uIU/mL (0.358-3.740)
[2023-09-10 11:41] LABS: Adenovirus NOT DETECTED (NOT DETECTE); Bordetella parapertussis NOT DETECTED (NOT DETECTE); Coronavirus 229E NOT DETECTED (NOT DETECTE); Coronavirus HKU1 NOT DETECTED (NOT DETECTE); Coronavirus NL63 NOT DETECTED (NOT DETECTE); Coronavirus OC43 NOT DETECTED (NOT DETECTE); Human Metapneumovirus NOT DETECTED (NOT DETECTE); Human Rhinovirus/Enterovirus NOT DETECTED (NOT DETECTE); Influenza A NOT DETECTED (NOT DETECTE); Influenza B NOT DETECTED (NOT DETECTE); Mycoplasma pneumoniae NOT DETECTED (NOT DETECTE); Parainfluenza Virus 1 NOT DETECTED (NOT DETECTE); Parainfluenza Virus 2 NOT DETECTED (NOT DETECTE); Parainfluenza Virus 3 NOT DETECTED (NOT DETECTE); Parainfluenza Virus 4 NOT DETECTED (NOT DETECTE); Respiratory Syncytial Virus NOT DETECTED (NOT DETECTE); SARS-CoV-2 NOT DETECTED (NOT DETECTE)
[2023-09-10 12:46] LABS: Free T4 0.88 ng/dL (0.76-1.46)
[2023-09-10 12:53] LABS: Free T3 2.13 pg/mL (2.18-3.98)
[2023-09-10] MEDS: METOPROLOL TARTRATE 5 MG/5 ML VIAL IVP (13:07)
== END 2023-09-10 14:14 | disposition home or self-care (01) ==
PROVIDERS: Emergency Provider Emergency Medicine
DX: R00.2 Palpitations (principal); E03.9 Hypothyroidism, unspecified; Z20.822 Contact with and (suspected) exposure to COVID-19; Z79.3 Long term (current) use of hormonal contraceptives
CPT/HCPCS: 0202U; 36415; 80053; 84439; 84443; 84481; 85025; 85378; 93005; 96374; 99284

== ENCOUNTER 2024-09-15 19:01 | Outpatient (REF) | payer OTHER, SELFPAY ==
--- OUTSIDE RECORDS SUMMARY | 2024-09-15 19:04 | XMS_ITS | CCD ---
Author Organization [facility] Care Team Providers Care Breaker Unit Assembler Name Role Phone Shannan Torres Unavailable Paulina Laguerre Unavailable SHEILA, DR JANET Enriquez Primary Care Unavailable BELLA ., DR LOMAX Admitting Unavailable BELLA ., DR LOMAX Attending Unavailable BELLA ., DR LOMAX Consulting Unavailable REQUEST, DR NONE LISTED Primary Care Unavaila ble SCOTT ., HERNANDEZ Admitting Unavailable SCOTT ., HERNANDEZ Attending Unavailable SCOTT ., HERNANDEZ Consulting Unavailable BELLA ., DR LOMAX Consulting Unavailable BELLA ., DR LOMAX Admitting Unavailable BELLA ., DR LOMAX Attending Unavailable [place], DR FARZANEH Condon Consulting Unavailable BELLA ., DR LOMAX Admitting Unavailable BELLA ., DR LOMAX Attending Unavailable BELLA ., DR LOMAX Consulting Unavailable BELLA ., DR LOMAX Attending Unavailable BELLA ., DR LOMAX Consulting Unavailable BELLA ., DR LOMAX Admitting Unavailable ZIEBER, DR MEL Olsen Consulting Unavailable ROSALY, DR JANET Enriquez Consulting Unavailable SHEILA, DR JANET Enriquez Primary Care Unavailable BELLA ., DR LOMAX Attending Unavailable BELLA ., DR LOMAX Consulting Unavailable BELLA ., DR LOMAX Admitting Unavailable BELLA ., DR LOMAX Admitting Unavailable BELLA ., DR LOMAX Attending Unavailable REQUEST, DR NONE LISTED Primary Care Unavaila ble SHEILA, DR JANET Enriquez Primary Care Unavailable BELLA ., DR LOMAX Admitting Unavailable BELLA ., DR LOMAX Attending Unavailable BELLA ., DR LOMAX Consulting Unavailable BELLA ., DR LOMAX Procedure Practitioner Unavail able ZIEBJAMAL, DR MEL Olsen Consulting Unavailable REQUEST, DR NONE LISTED Primary Care Unavaila ble SCOTT ., HERNANDEZ Admitting Unavailable SCOTT ., HERNANDEZ Attending Unavailable SCOTT ., HERNANDEZ Consulting Unavailable PAY ., DR DAVIS Admitting Unavailable PAY ., DR DAVIS Attending Unavailable PAY ., DR DAVIS Consulting Unavailable BELLA ., DR LOMAX Attending Unavailable BELLA ., DR LOMAX Consulting Unavailable BELLA ., DR LOMAX Admitting Unavailable BELLA ., DR LOMAX Attending Unavailable BELLA ., DR LOMAX Consulting Unavailable BELLA ., DR LOMAX Admitting Unavailable SHEILA, DR JANET Enriquez Primary Care Unavailable BELLA ., DR LOMAX Admitting Unavailable BELLA ., DR LOMAX Consulting Unavailable BELLA ., DR LOMAX Attending Unavailable Janet Sosa MD Primary Care Provider Janet Sosa MD Primary Care Provider DAMI BLANCO Attending Unavailable NURYS, RUTH A Attending Unavailable NURYS, RUTH A Referring Unavailable NURYS, RUTH A Attending Unavailable NURYS, RUTH A Attending Unavailable EVERARDO, AHMAD F Attending Unavailable EVERARDO, AHMAD F Referring Unavailable NURYS, RUTH A Attending Unavailable EVERARDO, AHMAD F Referring Unavailable Allergies Allergy Classification Reported Allergen(s) Allergy Type Date of Onset Reaction(s) Facility (11 sources) Cefaclor Drug Allergy 3 [facility] Work Phone: (1 source) Cefaclor Drug Allergy [facility] (1 source) Penicillins Drug allergy (disorder) [facility] (10 sources) Penicillins Propensity to adverse reactions 3 [facility] Medications Current Medications Medication Drug Class(es) Dates Sig (Normalized) Sig (Original) azithromycin 250 mg oral tablet (2 sources) Macrolide Antimicrobial Start: 09-22-2023 End: 09-27-2023 take 2 tablets by mouth once daily, then take 1 tablet by mouth once daily azithromycin (Zithromax) 250 MG tablet Indications: Acute non-recurrent sinusitis of other sinus Take 2 tablets (500 mg) by mouth Daily for 1 day, THEN 1 tablet (250 mg) Daily for 4 days. 6 tablet 0 09/22/2023 09/27/2023 Active cholecalciferol 0.025 mg oral capsule (9 sources) Vitamin D take 1 capsule by mouth once in the morning cholecalciferol (Vitamin D-3) 25 MCG (1000 UT) capsule Indications: Vitamin D Deficiency Take 500 Units by mouth in the morning. Active Ethinyl Estradiol / Ferrous fumarate / Norethindrone (1 source) Estrogen MULTIPLE MINERALS-VITAMINS PO (10 sources) MULTIPLE MINERALS-VITAMINS PO Take by mouth. NUTRAFOL Active MULTIPLE MINERAL S-VITAMINS PO Take by mouth. NUTRAFOL 0 Active NON FORMULARY (4 sources) take 1 tablet by mouth once daily NON FORMULARY Take 1 tablet by mouth Daily Biotoxin Binder Active norethindrone 0.35 mg oral tablet (10 sources) Start: 3 End: 5 take 1 tablet by mouth once daily norethindrone (Jencycla) 0.35 MG tablet Indications: Uses control Take 1 tablet (0.35 mg) by mouth Daily 28 tablet 12 04/25/2024 04/25/2025 Active Bolivar-3-6-9 capsule (7 sources) take 1 capsule by mouth once daily Bolivar-3-6-9 capsule Take 1 capsule by mouth Daily Active sertraline 25 mg oral tablet (9 sources) Serotonin Reuptake Inhibitor Start: 5 sertraline (Zoloft) 25 MG tablet Indications: Anxiety TAKE 1 AND 1/2 TABLETS BY MOUTH EVERY MORNING 45 tablet 1 08/30/2024 Active Start: 07-01-2024 sertraline (Zo loft) 25 MG tablet Indications: Anxiety TAKE 1 AND 1/2 TABLETS BY MOUTH EVERY MORNING 45 tablet 1 07/01/2024 Active Start: 05-02-2024 sertraline (Zo loft) 25 MG tablet Indications: Anxiety TAKE 1 AND 1/2 TABLETS BY MOUTH EVERY MORNING 45 tablet 1 05/02/2024 Active Start: 09-22-2023 End: 11-21-2023 take 1 tablet by mouth in the morning sertraline (Zoloft) 25 MG tablet Indications: Anxiety Take 1 tablet (25 mg) by mouth in the morning for 60 doses. 30 tablet 1 09/22/2023 11/21/2023 Active Problems Active Problems Problem Classification Problem Date Documented Da te Episodic/Chronic Anxiety disorders (14 sources) Mixed anxiety and depressive disorder; Translations: [Other specified anxiety disorders] Onset: 05-15-2023 05-15-2023 Chronic Cardiac dysrhythmias (2 sources) Pulse fast; Translations: [Tachycardia, unspecified] 09-22-2023 Episodic Malaise and fatigue (3 sources) Fatigue; Translations: [Other fatigue] 08-02-2024 Episodic Menstrual disorders (6 sources) Irregular menstruation, unspecified; Translations: [Irregular periods] Onset: 04-15-2022 Chronic Nonmalignant breast conditions (10 sources) Fibrocystic disease of breast; Translations: [Diffuse cystic mastopathy of unspecified breast] Onset: 05-15-2023 05-15-2023 Chronic Nonspecific chest pain (2 sources) Tight chest; Translations: [Other chest pain] 09-22-2023 Episodic Nutritional deficiencies (1 source) Vitamin D deficiency; Translations: [Vitamin D deficiency, unspecified] 08-19-2024 Chronic Other complications of (3 sources) Maternal care for excessive growth, unspecified trimester, not applicable or unspecified; Translations: [MAT CARE EXCSS FTL GRTH UNS TRI UNS] Onset: 11-06-2022 Episodic Other complications of (1 source) Maternal care for excessive growth, third trimester, not applicable or unspecified; Translations: [MAT CARE EXCSS FTL GRTH 3RD TRI UNS] Onset: 11-09-2022 Episodic Other complications of (2 sources) Hydatidiform mole, benign; Translations: [Hydatidiform mole, unspecified] 09-22-2023 Episodic Other connective tissue disease (2 sources) Cramp in lower limb; Translations: [Cramp and spasm] 08-02-2024 Episodic Other nutritional; endocrine; and metabolic disorders (2 sources) Weight increased; Translations: [Abnormal weight gain] 08-02-2024 Episodic Other and delivery including normal (20 sources) Encounter for routine follow-up; Translations: [Encounter for supervision of normal , unspecified, third trimester] Onset: 05-12-2022 Episodic Other screening for suspected conditions (not mental disorders or infectious disease) (11 sources) Encounter for screening for diabetes mellitus; Translations: [Encounter for screening for malignant neoplasm of cervix] Onset: 07-16-2022 Episodic Other skin disorders (2 sources) Disorder of skin; Translations: [Disorder of the skin and subcutaneous tissue, unspecified] 09-22-2023 Episodic Other skin disorders (2 sources) Acne; Translations: [Acne, unspecified] 08-02-2024 Episodic Other upper respiratory infections (2 sources) Acute sinusitis; Translations: [Other acute sinusitis] 09-22-2023 Episodic Residual codes; unclassified (1 source) 40 weeks gestation of ; Translations: [40 WEEKS GESTATION OF ] Onset: 12-11-2022 Episodic Residual codes; unclassified (1 source) 36 weeks gestation of ; Translations: [36 WEEKS GESTATION OF ] Onset: 11-09-2022 Episodic Residual codes; unclassified (2 sources) Family history of osteoporosis; Translations: [Family history of osteoporosis] 08-02-2024 Episodic Thyroid disorders (15 sources) Goiter; Translations: [Nontoxic goiter, unspecified] Onset: 10-13-2023 09-22-2023 Chronic Unclassified (1 source) PERSONAL HISTORY OF COVID-19; Translations: [PERSONAL HISTORY OF COVID-19] Onset: 12-11-2022 Past or Other Problems Problem Classification Problem Date Documented Da te Episodic/Chronic Diabetes mellitus without complication (1 source) Other abnormal glucose; Translations: [OTHER ABNORMAL GLUCOSE] Onset: 08-27-2022 Episodic Immunizations and screening for infectious disease (5 sources) Encounter for screening for other viral diseases; Translations: [Contact with and (suspected) exposure to other viral communicable diseases] Onset: 06-17-2021 Resolved: 06-21-2021 Episodic Mood disorders (9 sources) Mood disorders Onset: 09-22-2023 Resolved: 01-12-2024 09-22-2023 Other complications of (4 sources) Other specified related conditions, unspecified trimester; Translations: [OTH SPEC PREG RELATED COND UNS TRI] Onset: 08-23-2022 Episodic Other female genital disorders (1 source) Other specified noninflammatory disorders of vagina; Translations: [OTH SPEC NONINFLAMMATORY D/O VAGINA] Onset: 08-08-2022 Episodic Other gastrointestinal disorders (10 sources) Constipation; Translations: [Constipation, unspecified] Onset: 05-15-2023 Resolved: 09-21-2023 09-21-2023 Episodic Residual codes; unclassified (1 source) Weeks of gestation of not specified; Translations: [WEEKS GESTATION NOT SPEC] Onset: 08-27-2022 Episodic Viral infection (10 sources) Disease caused by 2019-nCoV; Translations: [COVID-19] Onset: 05-15-2023 Resolved: 05-20-2023 05-20-2023 Episodic Viral infection (1 source) COVID-19 Onset: 06-21-2021 Resolved: 06-21-2021 Results Test Name Value Interpretation Reference Range Facility US THYROIDon 08-08-2024 US THYROID EXAM: US THYROID HISTORY: Not provided TECHNIQUE: Real-time ultrasonographic evaluation with color-flow Doppler imaging is provided for the soft tissues of the neck. COMPARISON: No comparison FINDINGS: The right lobe of the thyroid gland measures 4.6 x 1.5 x 1.3 cm. Nodularity in the right lobe measuring 0.7 x 0.4 x 0.3 cm. Isoechoic. Not very well defined. No associated calcification. Nodular in the right lobe measuring 0.6 x 0.6 x 0.4 cm. Isoechoic. Not well defined. The left lobe of the thyroid gland measures 4.9 x 1.5 x 1 cm. There is a 0.2 by 0.3 x 0.3 cm nodular area in in the left lobe of the thyroid gland. Hypoechoic. Not very well defined. No associated calcification. The isthmus measures 0.2 cm. IMPRESSION: Slightly heterogeneous parenchymal echotexture of each lobe of the thyroid gland. There are subtle nodules, none very discrete. No associated calcification. Assessment: TI rads score 2 Recommendation: Follow-up as per clinical indication. Electronically Signed:Electronicall y signed by SUJATHA GONZALES MD at 10-Aug-2024 03:49:23 PM [facility] Normal Not Available US THYROIDon 09-29-2023 US THYROID EXAMINATION: US THYROID CLINICAL HISTORY: enlarged thyroid COMPARISONS: NONE AVAILABLE TECHNIQUE: Grayscale with duplex doppler sonographic imaging of the thyroid gland was performed in multiple planes by a registered heavy forging machine operator and the images are submitted for interpretation. FINDINGS: The thyroid gland is normal in size and echogenicity. The right lobe of the thyroid gland measures: 4.8 x 1.5 x 1.3 cm The left lobe of the thyroid gland measures: 4.7 x 1.5 x 1.1 cm The thyroid isthmus measures: 2 mm Thyroid nodules are identified as follows: 1 There is a 6 x 5 x 4 mm thyroid nodule in the Right mid lobe of the thyroid gland demonstrating mixed cystic and solid (1) sonographic appearance. The nodule is hypoechoic (2) to surrounding thyroid parenchyma. The lesion is symmetric in shape with lobulated (2) margins and contains no echogenic foci. The findings correspond to a TI-RADS 4, moderately suspicious nodule, continued yearly imaging follow-up is recommended. 2 There is a 3 x 2 x 2 mm thyroid nodule in the Left mid lobe of the thyroid gland demonstrating almost completely solid (2) sonographic appearance. The nodule is hypoechoic (2) to surrounding thyroid parenchyma. The lesion is wider than tall in shape with smooth margins and contains no echogenic foci. The findings correspond to a TI-RADS 4, moderately suspicious nodule, continued yearly imaging follow-up is recommended. IMPRESSION: Continued yearly imaging follow-up is recommended. ELECTRONICALLY SIGNED BY: Roland Palmer MD Normal Not Available CBC AUTO DIFFon 12-03-2022 BASO # 0.0 103/ul Normal 0.0-0.1 [facility] Comment on above: Performed By: #### R UBIGG #### [facility] [address] [place] [address] Dr. Radha Yu Basophils/100 WBC (Bld) 0.2 % Normal 0.2-2.0 [facility] Comment on above: Performed By: #### R UBIGG #### [facility] [address] [address] [address] Radha Yu EO # 0.0 103/ul Normal 0.0-0.7 [facility] Comment on above: Performed By: #### R UBIGG #### [facility] [address] [address] [address] Radha Yu Eosinophils/100 WBC (Bld) 0.1 % Critically low 0.9-7.0 [facility] Comment on above: Performed By: #### R UBIGG #### [facility] [address] [place] [address] Dr. Radha Yu Erythrocyte distribution width (RBC) [Ratio] 13.2 % Normal 11.0-15.0 [facility] Comment on above: Performed By: #### R UBIGG #### [facility] [address] [address] [address] Radha Yu Hematocrit (Bld) [Volume fraction] 36.8 % Normal 36.0-48.0 [facility] Comment on above: Performed By: #### R UBIGG #### [facility] [address] [address] [address] Radha Yu Hemoglobin (Bld) [Mass/Vol] 12.3 g/dL Normal 12.0-16.0 [facility] Comment on above: Performed By: #### R UBIGG #### [facility] [address] [address] [address] Radha Yu IG # 0.09 10e3/ul Critically high 0.00-0.03 [facility] Comment on above: Performed By: #### R UBIGG #### [facility] [address] [place] [address] Dr. Radha Yu IG % 0.6 % Critically high 0.0-0.5 [facility] Comment on above: Performed By: #### R UBIGG #### [facility] [address] [address] [address] Radha Yu LYMPH # 1.9 103/ul Normal 1.2-3.8 [facility] Comment on above: Performed By: #### R UBIGG #### [facility] [address] [address] [address] Radha Yu Lymphocytes/100 WBC (Bld) 12.5 % Critically low 20.5-60.0 [facility] Comment on above: Performed By: #### R UBIGG #### [facility] [address] [address] [address] Radha Yu MANUAL DIFF REQ NO Normal [facility] Comment on above: Performed By: #### R UBIGG #### [facility] [address] [place] [address] Dr. Radha Yu MCH (RBC) [Entitic mass] 30.3 pg Normal 26.7-34.0 [facility] Comment on above: Performed By: #### R UBIGG #### [facility] [address] [address] [address] Radha Yu MCHC (RBC) [Mass/Vol] 33.4 g/dL Normal 29.9-35.2 [facility] Comment on above: Performed By: #### R UBIGG #### [facility] [address] [address] [address] Radha Yu MCV (RBC) [Entitic vol] 90.6 fL Normal 81.0-99.0 [facility] Comment on above: Performed By: #### R UBIGG #### [facility] [address] [address] [address] Radha Yu MONO # 1.1 103/ul Critically high 0.3-0.8 [facility] Comment on above: Performed By: #### R UBIGG #### [facility] [address] [address] [address] Radha Yu Monocytes/100 WBC (Bld) 7.4 % Normal 1.7-12.0 [facility] Comment on above: Performed By: #### R UBIGG #### [facility] [address] [address] [address] Radha Yu NEUT # 12.1 103/ul Critically high 1.4-6.5 [facility] Comment on above: Performed By: #### R UBIGG #### [facility] [address] [address] [address] Radha Yu Neutrophils/100 WBC (Bld) 79.2 % Critically high 43.0-75.0 [facility] Comment on above: Performed By: #### R UBIGG #### [facility] [address] [address] [address] Radha Yu Platelet mean volume (Bld) [Entitic vol] 10.4 fL Normal 9.5-13.5 [facility] Comment on above: Performed By: #### R UBIGG #### [facility] [address] [address] [address] Radha Yu PLT 193 103/ul Normal 150-450 [facility] Comment on above: Performed By: #### R UBIGG #### [facility] [address] [address] [address] Radha Yu RBC 4.06 106/ul Critically low 4.20-5.40 [facility] Comment on above: Performed By: #### R UBIGG #### [facility] [address] [address] [address] Radha Yu WBC 15.2 103/ul Critically high 4.0-11.0 [facility] Comment on above: Performed By: #### R UBIGG #### [facility] [address] [address] [address] Radha Yu BASO # 0.0 103/ul Normal 0.0-0.1 [facility] Comment on above: Performed By: #### H CVPCRR #### [facility] [address] [address] [address] Radha Yu Basophils/100 WBC (Bld) 0.4 % Normal 0.2-2.0 [facility] Comment on above: Performed By: #### H CVPCRR #### [facility] [address] [address] [address] Radha Yu EO # 0.1 103/ul Normal 0.0-0.7 [facility] Comment on above: Performed By: #### H CVPCRR #### [facility] [address] [address] [address] Radha Yu Eosinophils/100 WBC (Bld) 1.0 % Normal 0.9-7.0 [facility] Comment on above: Performed By: #### H CVPCRR #### [facility] [address] [address] [address] Radha Yu Erythrocyte distribution width (RBC) [Ratio] 13.6 % Normal 11.0-15.0 [facility] Comment on above: Performed By: #### H CVPCRR #### [facility] [address] [address] [address] Radha Yu Hematocrit (Bld) [Volume fraction] 37.3 % Normal 36.0-48.0 [facility] Comment on above: Performed By: #### H CVPCRR #### [facility] [address] [place] [address] Dr. Radha Yu Hemoglobin (Bld) [Mass/Vol] 12.9 g/dL Normal 12.0-16.0 [facility] Comment on above: Performed By: #### H CVPCRR #### [facility] [address] [place] [address] Dr. Rdaha Yu IG # 0.03 10e3/ul Normal 0.00-0.03 [facility] Comment on above: Performed By: #### H CVPCRR #### [facility] [address] [place] [address] Dr. Radha Yu IG % 0.3 % Normal 0.0-0.5 [facility] Comment on above: Performed By: #### H CVPCRR #### [facility] [address] [place] [address] Dr. Radha Yu LYMPH # 2.8 103/ul Normal 1.2-3.8 [facility] Comment on above: Performed By: #### H CVPCRR #### [facility] [address] [place] [address] Dr. Radha Yu Lymphocytes/100 WBC (Bld) 27.0 % Normal 20.5-60.0 [facility] Comment on above: Performed By: #### H CVPCRR #### [facility] [address] [place] [address] Dr. Radha Yu MANUAL DIFF REQ NO Normal [facility] Comment on above: Performed By: #### H CVPCRR #### [facility] [address] [place] [address] Dr. Radha Yu MCH (RBC) [Entitic mass] 30.4 pg Normal 26.7-34.0 [facility] Comment on above: Performed By: #### H CVPCRR #### [facility] [address] [place] [address] Dr. Radha Yu MCHC (RBC) [Mass/Vol] 34.6 g/dL Normal 29.9-35.2 [facility] Comment on above: Performed By: #### H CVPCRR #### [facility] [address] [place] [address] Dr. Radha Yu MCV (RBC) [Entitic vol] 88.0 fL Normal 81.0-99.0 [facility] Comment on above: Performed By: #### H CVPCRR #### [facility] [address] [place] [address] Dr. Radha Yu MONO # 1.0 103/ul Critically high 0.3-0.8 [facility] Comment on above: Performed By: #### H CVPCRR #### [facility] [address] [place] [address] Dr. Radha Yu Monocytes/100 WBC (Bld) 9.7 % Normal 1.7-12.0 [facility] Comment on above: Performed By: #### H CVPCRR #### [facility] [address] [place] [address] Dr. Radha Yu NEUT # 6.5 103/ul Normal 1.4-6.5 [facility] Comment on above: Performed By: #### H CVPCRR #### [facility] [address] [place] [address] Dr. Radha Yu Neutrophils/100 WBC (Bld) 61.6 % Normal 43.0-75.0 [facility] Comment on above: Performed By: #### H CVPCRR #### [facility] [address] [place] [address] Dr. Radha Yu Platelet mean volume (Bld) [Entitic vol] 11.9 fL Normal 9.5-13.5 [facility] Comment on above: Performed By: #### H CVPCRR #### [facility] [address] [place] [address] Dr. Radha Yu PLT 237 103/ul Normal 150-450 [facility] Comment on above: Performed By: #### H CVPCRR #### [facility] [address] [place] [address] Dr. Radha Yu RBC 4.24 106/ul Normal 4.20-5.40 [facility] Comment on above: Performed By: #### H CVPCRR #### [facility] [address] [place] [address] Dr. Radha Yu WBC 10.5 103/ul Normal 4.0-11.0 [facility] Comment on above: Performed By: #### H CVPCRR #### [facility] [address] [place] [address] Dr. Radha Yu DRUG SCREEN RAPID (URINE)on 12-03-2022 AMP Negative Normal NEGATIVE [facility] Comment on above: Performed By: #### R UBIGG #### [facility] [address] [place] [address] Dr. Radha Yu BAR Negative Normal NEGATIVE [facility] Comment on above: Performed By: #### R UBIGG #### [facility] [address] [place] [address] Dr. Radha Yu BUP Negative Normal NEGATIVE [facility] Comment on above: Performed By: #### R UBIGG #### [facility] [address] [place] [address] Dr. Radha Yu BZO Negative Normal NEGATIVE [facility] Comment on above: Performed By: #### R UBIGG #### [facility] [address] [place] [address] Dr. Radha Yu JOYCE Negative Normal NEGATIVE [facility] Comment on above: Performed By: #### R UBIGG #### [facility] [address] [place] [address] Dr. Radha Yu CUT-OFFS SEE BELOW Normal [facility] Comment on above: Result Comment: AMP (Amphetamine): 500ng/mL, BAR (Barbituates): 200 ng/mL, BZO (Benzodiazepines): 150 ng/mL, BUP (Buprenorphine): 10 ng/mL, JOYCE (Cocaine): 150 ng/mL, mAMP (Methamphetamine): 500 ng/mL, MTD (Methadone): 200 ng/mL, OPI (Opiates): 100 ng/mL, OXY (Oxycodone): 100 ng/mL, PCP (Phencyclidine): 25 ng/mL, PPX (Propoxyphene): 300 ng/mL, THC (Cannabinoids): 50 ng/mL, TCA (Trycyclic Antidepressants): 300 ng/mL Performed By: #### R UBIGG #### [facility] Laboratory [address] [place] [address] Dr. Radha Yu DRUG CUT HEADER DRUG CLASS TEST SYSTEM CUT-OFF CONCENTRATIONS ARE FOLLOWS: Normal [facility] Comment on above: Performed By: #### R UBIGG #### [facility] [address] [place] [address] Dr. Radha Yu mAMP Negative Normal NEGATIVE [facility] Comment on above: Performed By: #### R UBIGG #### [facility] [address] [place] [address] Dr. Radha Yu MTD Negative Normal NEGATIVE [facility] Comment on above: Performed By: #### R UBIGG #### [facility] [address] [place] [address] Dr. Radha Yu OPI Negative Normal NEGATIVE [facility] Comment on above: Performed By: #### R UBIGG #### [facility] [address] [place] [address] Dr. Radha Yu OXY Negative Normal NEGATIVE [facility] Comment on above: Performed By: #### R UBIGG #### [facility] [address] [place] [address] Dr. Radha Yu PCP Negative Normal NEGATIVE [facility] Comment on above: Performed By: #### R UBIGG #### [facility] [address] [place] [address] Dr. Radha Yu PPX Negative Normal NEGATIVE [facility] Comment on above: Performed By: #### R UBIGG #### [facility] [address] [place] [address] Dr. Radha Yu TCA Negative Normal NEGATIVE [facility] Comment on above: Performed By: #### R UBIGG #### [facility] [address] [place] [address] Dr. Radha Yu THC Negative Normal NEGATIVE [facility] Comment on above: Performed By: #### R UBIGG #### [facility] [address] [address] [address] Radha Yu TYPE AND SCREENon 12-03-2022 TYPE AND SCREEN Negative Normal [facility] Comment on above: Performed By: #### H CVPCRR #### [facility] [address] [address] [address] Radha Yu US PREG GROWTHon 11-06-2022 [...] MEL OLIVIER Date: 2022-11-06 16:26 Normal [facility] GROUP B STREP CULTUREon 10-16 S. agalactiae Ag Ql (Unsp spec) Culture Observations: NEGATIVE FOR GROUP B STREPTOCOCCUS. Normal [facility] Comment on above: Performed By: #### H CVPCRR #### [facility] [address] [address] [address] Radha Yu GTT 3 HR PREGon 08-23-2022 Glucose [Mass/Vol] 77 mg/dL Normal 74-106 [facility] Comment on above: Performed By: #### H CVPCRR #### [facility] [address] [address] [address] Radha Yu Glucose [Mass/Vol] 169 mg/dL Normal [facility] Comment on above: Performed By: #### H CVPCRR #### [facility] [address] [address] [address] Radha Yu Glucose [Mass/Vol] 152 mg/dL Normal [facility] Comment on above: Performed By: #### H CVPCRR #### [facility] [address] [address] [address] Radha Yu Glucose [Mass/Vol] 107 mg/dL Normal [facility] Comment on above: Performed By: #### H CVPCRR #### [facility] [address] [address] [address] Radha Yu PAP ACOG PANEL 2: 30 to 65on 08-15-[address] [facility] Comment on above: Result Comment: Perf ormed at: WB Performed By: #### R UBIGG #### [facility] [address] [place] [address] Dr. Radha Yu Age Gdln ACOG Testing [facility] Comment on above: Performed By: #### R UBIGG #### [facility] [address] [address] [address] Radha Yu DIAGNOSIS: Comment Normal [facility] Comment on above: Result Comment: NEGA TIVE FOR INTRAEPITHELIAL LESION OR MALIGNANCY. FUNGAL ORGANISMS MORPHOLOGICALLY CONSISTENT WITH JILLIAN SPECIES ARE PRESENT. THIS SPECIMEN WAS RESCREENED PART OF OUR TI[employer] CORD [employer]AVER PROGRAM. Performed at: WB Performed By: #### R UBIGG #### [facility] [address] [address] [address] Radha Yu HPV Aptima Negative Normal Negative [facility] Comment on above: Result Comment: This nucleic acid amplification test detects fourteen high-risk HPV types (16,18,31,33,35,39,45,51,52,56,58,59,66,68) without differentiation. Performed at: =G Performed By: #### R UBIGG #### [facility] [address] [address] [address] Radha uY HPV Genotype Reflex Comment Normal [facility] Comment on above: Result Comment: Crit eria not met, HPV Genotype not performed. Performed at: WB Performed By: #### R UBIGG #### [facility] [address] [place] [address] Dr. Radha Yu Methodology: Comment Normal [facility] Comment on above: Result Comment: This liquid based ThinPrep(R) pap test was screened with the use of an image guided system. Performed at: WB Performed By: #### R UBIGG #### [facility] [address] [place] [address] Dr. Radha Yu Note: Comment Normal [facility] Comment on above: Result Comment: The Pap smear is a screening test designed to aid in the detection of premalignant and malignant conditions of the uterine cervix. It is not a diagnostic procedure and should not be used as the sole means of detecting cervical cancer. Both false-positive and false-negative reports do occur. . Performed at: WB Performed By: #### R UBIGG #### [facility] [address] [place] [address] Dr. Radha Yu Performed by: Comment Normal [facility] Comment on above: Result Comment: Ambreen Matias, Used Car Sales Manager (ASCP) Performed at: WB Performed By: #### R UBIGG #### [facility] [address] [place] [address] Dr. Radha Yu QC reviewed by: Comment Normal [facility] Comment on above: Result Comment: Tanya Mueller, Supervisory Used Car Sales Manager (ASCP) Performed at: WB Performed By: #### R UBIGG #### [facility] [address] [place] [address] Dr. Radha Yu Specimen adequacy: Comment Normal [facility] Comment on above: Result Comment: Sati sfactory for evaluation. Endocervical and/or squamous metaplastic cells (endocervical component) are present. Performed at: WB Performed By: #### R UBIGG #### [facility] [address] [place] [address] Dr. Radha Yu CBC AUTO DIFFon 08-07-2022 BASO # 0.0 103/ul Normal 0.0-0.1 [facility] Comment on above: Performed By: #### C BC #### [facility] [address] [address] [address] Radha Yu Basophils/100 WBC (Bld) 0.2 % Normal 0.2-2.0 [facility] Comment on above: Performed By: #### C BC #### [facility] [address] [address] [address] Radha Yu EO # 0.0 103/ul Normal 0.0-0.7 [facility] Comment on above: Performed By: #### C BC #### [facility] [address] [place] [address] Dr. Radha Yu Eosinophils/100 WBC (Bld) 0.4 % Critically low 0.9-7.0 [facility] Comment on above: Performed By: #### C BC #### [facility] [address] [place] [address] Dr. Radha Yu Erythrocyte distribution width (RBC) [Ratio] 13.2 % Normal 11.0-15.0 [facility] Comment on above: Performed By: #### C BC #### [facility] [address] [place] [address] Dr. Radha Yu Hematocrit (Bld) [Volume fraction] 34.1 % Critically low 36.0-48.0 [facility] Comment on above: Performed By: #### C BC #### [facility] [address] [place] [address] Dr. Radha Yu Hemoglobin (Bld) [Mass/Vol] 11.4 g/dL Critically low 12.0-16.0 [facility] Comment on above: Performed By: #### C BC #### [facility] [address] [place] [address] Dr. Radha Yu IG # 0.03 10e3/ul Normal 0.00-0.03 [facility] Comment on above: Performed By: #### C BC #### [facility] [address] [place] [address] Dr. Radha Yu IG % 0.3 % Normal 0.0-0.5 [facility] Comment on above: Performed By: #### C BC #### [facility] [address] [address] [address] Radha Yu LYMPH # 1.9 103/ul Normal 1.2-3.8 [facility] Comment on above: Performed By: #### C BC #### [facility] [address] [place] [address] Dr. Radha Yu Lymphocytes/100 WBC (Bld) 18.8 % Critically low 20.5-60.0 [facility] Comment on above: Performed By: #### C BC #### [facility] [address] [place] [address] Dr. Radha Yu MANUAL DIFF REQ NO Normal [facility] Comment on above: Performed By: #### C BC #### [facility] [address] [place] [address] Dr. Radha Yu MCH (RBC) [Entitic mass] 31.1 pg Normal 26.7-34.0 [facility] Comment on above: Performed By: #### C BC #### [facility] [address] [place] [address] Dr. Radha Yu MCHC (RBC) [Mass/Vol] 33.4 g/dL Normal 29.9-35.2 [facility] Comment on above: Performed By: #### C BC #### [facility] [address] [place] [address] Dr. Radha Yu MCV (RBC) [Entitic vol] 92.9 fL Normal 81.0-99.0 [facility] Comment on above: Performed By: #### C BC #### [facility] [address] [place] [address] Dr. Radha Yu MONO # 0.4 103/ul Normal 0.3-0.8 [facility] Comment on above: Performed By: #### C BC #### [facility] [address] [place] [address] Dr. Radha Yu Monocytes/100 WBC (Bld) 4.4 % Normal 1.7-12.0 [facility] Comment on above: Performed By: #### C BC #### [facility] [address] [address] [address] Radha Yu NEUT # 7.5 103/ul Critically high 1.4-6.5 [facility] Comment on above: Performed By: #### C BC #### [facility] [address] [place] [address] Dr. Radha Yu Neutrophils/100 WBC (Bld) 75.9 % Critically high 43.0-75.0 [facility] Comment on above: Performed By: #### C BC #### [facility] [address] [place] [address] Dr. Radha Yu Platelet mean volume (Bld) [Entitic vol] 9.8 fL Normal 9.5-13.5 [facility] Comment on above: Performed By: #### C BC #### [facility] [address] [place] [address] Dr. Radha Yu PLT 250 103/ul Normal 150-450 [facility] Comment on above: Performed By: #### C BC #### [facility] [address] [place] [address] Dr. Radha Yu RBC 3.67 106/ul Critically low 4.20-5.40 [facility] Comment on above: Performed By: #### C BC #### [facility] [address] [place] [address] Dr. Radha Yu WBC 9.8 103/ul Normal 4.0-11.0 [facility] Comment on above: Performed By: #### C BC #### [facility] [address] [place] [address] Dr. Radha Yu CHLAMYDIA/GONOCOCCUS DANELLE (SW AB/URINE/PAPon 08-07-2022 Chlamydia trachomatis, DANELLE Negative Normal Negative [facility] Comment on above: Performed By: #### C T/NGNA #### [facility] [address] [place] [address] Dr. Radha Yu Neisseria gonorrhoeae, DANELLE Negative Normal Negative [facility] Comment on above: Performed By: #### C T/NGNA #### [facility] [address] [address] [address] Radha Yu GLUCOSE - 1HRon 08-07-2022 Glucose [Mass/Vol] 151 mg/dL Critically high 74-106 T [facility] Comment on above: Performed By: #### G LU1HR #### [facility] [address] [address] [address] Radha Yu VAGINITIS/VAGINOSIS DNA PROB Sean 08-06-2022 Jillian species Positive Abnormal Negative [facility] Comment on above: Performed By: #### R UBIGG #### [facility] [address] [address] [address] Radha Yu Gardnerella vaginalis Negative Normal Negative [facility] Comment on above: Performed By: #### R UBIGG #### [facility] [address] [address] [address] Radha Yu Trichomonas vaginalis Negative Normal Negative [facility] Comment on above: Performed By: #### R UBIGG #### [facility] [address] [address] [address] Radha Yu AFP MATERNAL FOR SPINA BIFID Aon 07-16-2022 AFP MoM 1.[address] [facility] Comment on above: Performed By: #### R UBIGG #### [facility] [address] [address] [address] Radha Yu AFP Value 75.6 ng/mL Normal [facility] Comment on above: Performed By: #### R UBIGG #### [facility] [address] [address] [address] Radha Yu AFP, Serum for Spina Bifida Report Normal [facility] Comment on above: Performed By: #### R UBIGG #### [facility] [address] [address] [address] Radha Yu Comment Comment Normal [facility] Comment on above: Result Comment: Adele Montez, Ph.D., [facility] Director . References: Available Upon Request. . Multiples Of Median Cutoffs For AFP Elevations Valdez 2.5 Black 2.8 IDD 2.0 Twins 4.5 Abbreviation Definitions IDD - Insulin Dep Diabetes OSBR - Open Spina Bifida Risk . For further inquiries contact [facility] at [phone]. . This test was developed and its performance characteristics determined by [employer]. It has not been cleared or approved by the Food and Drug Administration. Performed By: #### R UBIGG #### [facility] [address] [place] [address] Dr. Radha Shin Age Collection Date [address] [facility] Comment on above: Performed By: #### R UBIGG #### [facility] [address] [place] [address] Dr. Radha Yu Gestat, Age Based on Ultrasound Normal [facility] Comment on above: Result Comment: 8.0 on 04/19/2022 Recalculations are not recommended when gestational dating by LMP and ultrasound are within 10 days. Performed By: #### R UBIGG #### [facility] [address] [place] [address] Dr. Radha Yu Insulin Dep Diabetes No Normal [facility] Comment on above: Performed By: #### R UBIGG #### [facility] [address] [place] [address] Dr. Radha Yu Interpretation Comment Normal [facility] Comment on above: Result Comment: Inte rpretation: [...] Customer Services to discuss available options. The [employer] recommends amniocentesis be offered to women age 35 and older. Performed By: #### R UBIGG #### [facility] [address] [place] [address] Dr. Radha Yu [age] Normal [facility] Comment on above: Performed By: #### R UBIGG #### [facility] [address] [address] [address] Radha Yu Multiple Gestation No Normal [facility] Comment on above: Performed By: #### R UBIGG #### [facility] [address] [address] [address] Radha Yu OSBR Risk 1 IN [facility] Comment on above: Performed By: #### R UBIGG #### [facility] [address] [address] [address] Radha Yu PDF . [facility] Comment on above: Performed By: #### R UBIGG #### [facility] [address] [address] [address] Radha Yu Race [facility] Comment on above: Performed By: #### R UBIGG #### [facility] [address] [place] [address] Dr. Radha Yu Test Results: Negative Normal [facility] Comment on above: Performed By: #### R UBIGG #### [facility] [address] [place] [address] Dr. Radha Yu US PREG ANATOMY SINGLEon [...] weeks 4 days MIKE by current US: [id number] IMPRESSION: 1. Single live intrauterine with growth detailed above. 2. No appreciable abnormality. Electronically authenticated by: MEL OLIVIER Date: 2022-07-14 08:53 Normal [facility] HEP B SURFACE ANTIGEN SCREEN on 05-14-2022 HBsAg Screen Negative Normal Negative [facility] Comment on above: Performed By: #### H BSANS #### [facility] [address] [address] [address] Radha Yu HEPATITIS C VIRUS AB W/ REFL EX QUANTon 05-14-2022 HCV AB <0.1 Normal 0.0-0.9 [facility] Comment on above: Performed By: #### H CVPCRR #### [facility] [address] [address] [address] Radha Yu Interpretation: Comment Normal [facility] Comment on above: Result Comment: Nega tive Not infected with HCV, unless recent infection is suspected or other evidence exists to indicate HCV infection. Performed By: #### H CVPCRR #### [facility] [address] [address] [address] Radha Yu HIV 1 AND 2 WITH REFLEXon HIV Screen 4th Generation wRfx Non-Reactive Normal Non Reactive [facility] Comment on above: Result Comment: HIV Negative HIV-1/HIV-2 antibodies and HIV-1 p24 antigen were NOT detected. There is no laboratory evidence of HIV infection. Performed By: #### H CVPCRR #### [facility] [address] [address] [address] Radha Yu RPR QUANTon 05-14-2022 Rapid Plasma Reagin, Quant Non-Reactive Normal NonRea<1:1 [facility] Comment on above: Result Comment: Plea se Note: This test does not meet current guidelines for screening and diagnosis of syphilis. This test is intended for following treatment response in patients being treated for syphilis infection. To screen for syphilis infection, a reflex cascade that includes both RPR and a treponema-specific assay should be utilized, such as Treponema pallidum (Syphilis) Screening Clear (857228) or Rapid Plasma Reagin (RPR) Test With Reflex to Quantitative RPR and Confirmatory Treponema pallidum Antibodies (711505). Performed By: #### H CVPCRR #### [facility] [address] [place] [address] Dr. Radha Yu RUBELLA AB IGGon 05-14-2022 Rubella Antibodies, IgG 17.60 index Normal Immune >0.99 [facility] Comment on above: Result Comment: Non- immune <0.90 Equivocal 0.90 - 0.99 Immune >0.99 Performed By: #### R UBIGG #### [facility] [address] [place] [address] Dr. Radha Yu CBC AUTO DIFFon 05-12-2022 BASO # 0.0 103/ul Normal 0.0-0.1 [facility] Comment on above: Performed By: #### C BC #### [facility] [address] [place] [address] Dr. Radha Yu Basophils/100 WBC (Bld) 0.3 % Normal 0.2-2.0 [facility] Comment on above: Performed By: #### C BC #### [facility] [address] [place] [address] Dr. Radha Yu EO # 0.2 103/ul Normal 0.0-0.7 [facility] Comment on above: Performed By: #### C BC #### [facility] [address] [place] [address] Dr. Radha Yu Eosinophils/100 WBC (Bld) 1.7 % Normal 0.9-7.0 [facility] Comment on above: Performed By: #### C BC #### [facility] [address] [place] [address] Dr. Radha Yu Erythrocyte distribution width (RBC) [Ratio] 12.3 % Normal 11.0-15.0 [facility] Comment on above: Performed By: #### C BC #### [facility] [address] [place] [address] Dr. Rdaha Yu Hematocrit (Bld) [Volume fraction] 38.5 % Normal 36.0-48.0 [facility] Comment on above: Performed By: #### C BC #### [facility] [address] [place] [address] Dr. Radha Yu Hemoglobin (Bld) [Mass/Vol] 12.9 g/dL Normal 12.0-16.0 [facility] Comment on above: Performed By: #### C BC #### [facility] [address] [place] [address] Dr. Radha Yu IG # 0.01 10e3/ul Normal 0.00-0.03 [facility] Comment on above: Performed By: #### C BC #### [facility] [address] [place] [address] Dr. Radha Yu IG % 0.1 % Normal 0.0-0.5 [facility] Comment on above: Performed By: #### C BC #### [facility] [address] [place] [address] Dr. Radha Yu LYMPH # 1.9 103/ul Normal 1.2-3.8 [facility] Comment on above: Performed By: #### C BC #### [facility] [address] [place] [address] Dr. Radha Yu Lymphocytes/100 WBC (Bld) 21.3 % Normal 20.5-60.0 [facility] Comment on above: Performed By: #### C BC #### [facility] [address] [place] [address] Dr. Radha Yu MANUAL DIFF REQ NO Normal [facility] Comment on above: Performed By: #### C BC #### [facility] [address] [place] [address] Dr. Radha Yu MCH (RBC) [Entitic mass] 31.5 pg Normal 26.7-34.0 [facility] Comment on above: Performed By: #### C BC #### [facility] [address] [address] [address] Radha Yu MCHC (RBC) [Mass/Vol] 33.5 g/dL Normal 29.9-35.2 [facility] Comment on above: Performed By: #### C BC #### [facility] [address] [address] [address] Radha Yu MCV (RBC) [Entitic vol] 93.9 fL Normal 81.0-99.0 [facility] Comment on above: Performed By: #### C BC #### [facility] [address] [place] [address] Dr. Radha Yu MONO # 0.5 103/ul Normal 0.3-0.8 [facility] Comment on above: Performed By: #### C BC #### [facility] [address] [place] [address] Dr. Radha Yu Monocytes/100 WBC (Bld) 6.0 % Normal 1.7-12.0 [facility] Comment on above: Performed By: #### C BC #### [facility] [address] [place] [address] Dr. Radha Yu NEUT # 6.1 103/ul Normal 1.4-6.5 [facility] Comment on above: Performed By: #### C BC #### [facility] [address] [place] [address] Dr. Radha Yu Neutrophils/100 WBC (Bld) 70.6 % Normal 43.0-75.0 [facility] Comment on above: Performed By: #### C BC #### [facility] [address] [place] [address] Dr. Radha Yu Platelet mean volume (Bld) [Entitic vol] 9.8 fL Normal 9.5-13.5 [facility] Comment on above: Performed By: #### C BC #### [facility] [address] [place] [address] Dr. Radha Yu PLT 276 103/ul Normal 150-450 [facility] Comment on above: Performed By: #### C BC #### [facility] [address] [address] [address] Radha Yu RBC 4.10 106/ul Critically low 4.20-5.40 [facility] Comment on above: Performed By: #### C BC #### [facility] [address] [place] [address] Dr. Radha Yu WBC 8.7 103/ul Normal 4.0-11.0 [facility] Comment on above: Performed By: #### C BC #### [facility] [address] [place] [address] Dr. Radha Yu CULTURE URINEon 05-12-2022 CULTURE URINE Culture Observations: LIGHT GROWTH OF MIXED GENITAL SAGRARIO. NO POTENTIAL PATHOGENS SEEN. Normal [facility] Comment on above: Performed By: #### H CVPCRR #### [facility] [address] [place] [address] Dr. Radha Yu GLYCOHEMOGLOBIN A1Con 2021 ADA RECOMMENDATION SEE BELOW Normal [place] [facility] Comment on above: Result Comment: ADA RECOMMENDED LIMIT 4.0 - 6.0 ADA THERAPEUTIC TARGET < 7.0 ACTION SUGGESTED > 7.0 Performed By: #### R UBIGG #### [facility] [address] [place] [address] Dr. Radha Yu Glucose [Mass/Vol] 91 mg/dL Normal [facility] Comment on above: Performed By: #### R UBIGG #### [facility] [address] [place] [address] Dr. Radha Yu HbA1c (Bld) [Mass fraction] 4.8 % Normal 4.5-6.2 [facility] Comment on above: Performed By: #### R UBIGG #### [facility] [address] [place] [address] Dr. Radha Yu GISELE BOX TEST PT SEND OUTo n 05-12-2022 SENT TO REF LAB 05/12/2022 Normal [facility] Comment on above: Performed By: #### N BOX #### [facility] [address] [place] [address] Dr. Radha Yu HEP A AB TOTALon 04-25-2022 Hep A Ab, Total Negative Normal Negative [facility] Comment on above: Performed By: #### H EPBSRF, HEPABT #### [facility] [address] [address] [address] Radha Yu HEPATITIS B SURFACE ANTIBODY , QUANTon 04-25-2022 Hepatitis B Surf AB Quant 967.8 mIU/mL Normal Immunity>9.9 [facility] Comment on above: Result Comment: Stat us of Immunity Anti-HBs Level Inconsistent with Immunity 0.0 - 9.9 Consistent with Immunity >9.9 Performed By: #### H EPBSRF, HEPABT #### [facility] [address] [place] [address] Dr. Radha Yu US PREG TVon 04-22-2022 [...] FARZANEH CHEUNG Date: 2022-04-22 07:47 Normal [facility] HCG-BETA SUBUNIT QUANTon hCG,Beta Subunit,Qnt,Serum 507192 mIU/mL Normal [facility] Comment on above: Result Comment: Fema le (Non-) 0 - 5 (Postmenopausal) 0 - 8 . Female () Weeks of Gestation 3 6 - 71 4 10 - 750 5 136 - 8121 6 410 - 85967 7 8723 -[id number] 8 27292 -[phone] 9 22574 -458376 10 23396 -170963 12 56256 -979574 14 91199 - 99156 15 56369 - 64671 16 7160 - 50795 17 2732 - 84867 18 9088 - 19694 Results confirmed on dilution. Carlos ECLIA methodology Performed By: #### R UBIGG #### [facility] [address] [place] [address] Dr. Radha Yu COVID Quick Testingon 2020 Result Negative [facility] Other Vital Signs Date Time Vital Sign Value Performing Clinician Facility 08-02-2024 15:57-0500 Body mass index (BMI) [Ratio] 27.19 kg/m2 Ruth Nuno NP Work Phone: [facility] 08-02-2024 15:57-0500 Body weight 74.12 kg Ruth Nuno AGRICULTURAL EQUIPMENT OPERATOR Work Phone: [facility] 08-02-2024 15:57-0500 Diastolic blood pressure 82 mm[Hg] Ruth Nuno AGRICULTURAL EQUIPMENT OPERATOR Work Phone: [facility] 08-02-2024 15:57-0500 Heart rate 72 /min Ruth Nuno AGRICULTURAL EQUIPMENT OPERATOR Work Phone: [facility] 08-02-2024 15:57-0500 Systolic blood pressure 120 mm[Hg] Ruth Nuno AGRICULTURAL EQUIPMENT OPERATOR Work Phone: [facility] 06-22-2024 14:21-0500 Body height 165.1 cm Alan Mcgee MD Work Phone: [facility] 06-22-2024 14:21-0500 Body mass index (BMI) [Ratio] 26.96 kg/m2 Alan Mcgee MD Work Phone: [facility] 06-22-2024 14:21-0500 Body weight 73.48 kg Alan Mcgee MD Work Phone: [facility] 06-22-2024 14:21-0500 Diastolic blood pressure 78 mm[Hg] Alan Mcgee MD Work Phone: [facility] 06-22-2024 14:21-0500 Heart rate 74 /min Alan Mcgee MD Work Phone: [facility] 06-22-2024 14:21-0500 Respiratory rate 16 /min Alan Mcgee MD Work Phone: [facility] 06-22-2024 14:21-0500 Systolic blood pressure 114 mm[Hg] Alan Mcgee MD Work Phone: [facility] 09-22-2023 15:58-0500 Body mass index (BMI) [Ratio] 22.94 kg/m2 Ruth Nuno AGRICULTURAL EQUIPMENT OPERATOR Work Phone: [facility] 09-22-2023 15:58-0500 Body weight 63.5 kg Ruthluis enrique Nuno AGRICULTURAL EQUIPMENT OPERATOR Work Phone: [facility] 09-22-2023 15:58-0500 Diastolic blood pressure 86 mm[Hg] Ruthluis enrique Nuno AGRICULTURAL EQUIPMENT OPERATOR Work Phone: [facility] 09-22-2023 15:58-0500 Heart rate 64 /min Ruthluis enrique Nuno AGRICULTURAL EQUIPMENT OPERATOR Work Phone: [facility] 09-22-2023 15:58-0500 Systolic blood pressure 130 mm[Hg] Ruth Nurys AGRICULTURAL EQUIPMENT OPERATOR Work Phone: [facility] 07-16-2022 02:06-0500 Body weight 68.[address] JANET SOSA [facility] Comment on above: Performed By: #### KANIKA #### [facility] [address] [place] [address] Dr. Radha Yu Encounters Encounter Date Encounter Type Care Provider Facility Start: 09-15-2024 End: 09-15-2024 Bamboo flowsheet Dami Bella DO Work Phone: [facility] Start: 09-15-2024 End: 09-15-2024 Bamboo flowsheet Dami Bella DO Work Phone: [facility] Start: 08-19-2024 End: 08-19-2024 Telephone encounter Ruth Nuno AGRICULTURAL EQUIPMENT OPERATOR Work Phone: [facility] Start: 08-08-2024 End: 08-08-2024 ambulatory ALAN MCGEE Not Available Start: 08-02-2024 End: 08-02-2024 Office outpatient visit 25 minutes Ruth Nuno AGRICULTURAL EQUIPMENT OPERATOR Work Phone: [facility] Comment on above: Mixed anxiety and de pressive disorder (Primary Dx); Thyroid nodule (CMS/HCC); Acne, unspecified acne type; Weight gain; Fatigue, unspecified type; Leg cramping; Family history of osteoporosis in mother; Irregular periods Start: 08-02-2024 End: 08-02-2024 ambulatory RUTH A NURYS Not Available Start: 06-22-2024 End: 06-22-2024 Office outpatient visit 25 minutes Alan Mcgee MD Work Phone: [facility] Comment on above: Subclinical hyperthy roidism (CMS/HCC) (Primary Dx); Multinodular goiter (CMS/HCC) Start: 06-22-2024 End: 06-22-2024 ambulatory ALAN MCGEE Not Available Start: 06-22-2024 End: 06-22-2024 Bamboo flowsheet Alan Mcgee MD Work Phone: [facility] Start: 06-22-2024 End: 06-22-2024 Bamboo flowsheet Alan Mcgee MD Work Phone: [facility] Start: 01-12-2024 End: 01-12-2024 ambulatory RUTH A NURYS Not Available Start: 10-13-2023 End: 10-13-2023 ambulatory RUTH A NURYS Not Available Start: 09-29-2023 End: 09-29-2023 ambulatory RUTH A NURYS Not Available Start: 09-22-2023 End: 09-22-2023 Office outpatient visit 40 minutes Ruth Nuno AGRICULTURAL EQUIPMENT OPERATOR Work Phone: [facility] Comment on above: Pulse fast (Primary Dx); Chest tightness; Anxiety; Low TSH level; Enlarged thyroid (CMS/HCC); Acute non-recurrent sinusitis of other sinus; Benign hydatidiform mole; Skin abnormality Start: 09-22-2023 End: 09-22-2023 ambulatory RUTH NUNO Not Available Start: 09-22-2023 Bamboo flowsheet Ruth ace AGRICULTURAL EQUIPMENT OPERATOR Work Phone: [facility] Start: 09-22-2023 Bamboo flowsheet Ruth ace AGRICULTURAL EQUIPMENT OPERATOR Work Phone: [facility] Start: 09-01-2023 End: 09-01-2023 ambulatory DAMI BLANCO Not Available Start: 12-09-2022 End: 12-09-[address] DAMI BLANCO . Facility: Start: 12-03-2022 End: 12-04-2022 Evaluation and management of inpatient DR JANET SOSA Facility: Start: 11-06-2022 End: 11-07-[address] MEL OLIVIER Facility:[facility] Start: 11-05-2022 End: 11-05-[address] ARISTEO BELL REQUEST Facility: Start: 08-23-2022 End: 08-24-[address] JANET SOSA Facility: Start: 08-07-2022 End: 08-08-[address] JANET SOSA Facility: Start: 08-04-2022 End: 08-04-[address] JANET SOSA Facility:[facility] Start: 07-12-2022 End: 07-13-[address] DAMI BLANCO . Facility:[facility] Start: 05-12-2022 End: 05-13-[address] DAMI BLANCO . Facility:[facility] Start: 04-24-2022 End: 04-24-[address] RYAN Chua Facility:[facility] Start: 04-19-2022 End: 04-20-[address] FARZANEH CHEUNG Facility:[facility] Start: 04-15-2022 End: 04-16-[address] DAMI BLANCO . Facility: Start: 06-21-2021 End: 06-21-2021 ambulatory Paulina Cresporeji Other [facility] Other Start: 06-21-2021 Office outpatient vi sit 15 minutes Paulina Laguerre [facility] Start: 06-17-2021 End: 06-17-2021 ambulatory Shannan Torres Other [facility] Other Start: 06-17-2021 Office outpatient vi sit 5 minutes Shannan Torres [facility] Procedures Date Procedure Procedure Detail Performing Clinician Start: 09-01-2023 Microscopic observat ion [Identifier] in Cervix by Cyto stain Dami Blanco DO Work Phone: Start: 12-02-2022 Delivery of Products of Conception, External Approach DR JANET SOSA Plan of Treatment Date Care Activity Detail Author Start: 09-01-2028 Screening for malignant neoplasm of cervix [facility] Start: 06-20-2025 End: 06-20-2025 Patient encounter procedure 06/20/2025 2:50 PM EST Office Visit [facility] [address] [place] [phone] Alan Mcgee MD [address] [place] [address] [facility] Start: 02-16-2025 End: 08-19-2025 25-hydroxyvitamin D3 [Mass/volume] in Serum or Plasma Vitamin D 25 hydroxy Lab Routine Vitamin D deficiency Expected: 02/16/2025 (Approximate), Expires: 08/19/2025 [facility] Work Phone: Comment on above: Expected: 02/16/2025 (Approximate), Expi res: 08/19/2025 Start: 02-16-2025 End: 08-19-2025 Ferritin [Mass/volume] in Serum or Plasma Ferritin Lab Routine Fatigue, unspecified type Expected: 02/16/2025 (Approximate), Expires: 08/19/2025 [facility] Comment on above: Expected: 02/16/2025 (Approximate), Expi res: 08/19/2025 Start: 09-15-2024 End: 09-15-2024 Patient encounter procedure [facility] Comment on above: Arrived Start: 08-08-2024 End: 08-08-2024 Professional / ancillary services management 08/08/2024 4:00 PM EST Ancillary Procedure [facility] [address] [place] [address] [facility] Start: 08-02-2024 End: 08-02-2025 25-hydroxyvitamin D3 [Mass/volume] in Serum or Plasma Vitamin D 25 hydroxy Lab Routine Family history of osteoporosis in mother Expected: 08/02/2024 (Approximate), Expires: 08/02/2025 [facility] Comment on above: Expected: 08/02/2024 (Approximate), Expi res: 08/02/2025 Start: 08-02-2024 End: 08-02-2025 CBC W Auto Differential panel - Blood CBC and differential Lab Routine Weight gain Expected: 08/02/2024 (Approximate), Expires: 08/02/2025 [facility] Comment on above: Expected: 08/02/2024 (Approximate), Expi res: 08/02/2025 Start: 08-02-2024 End: 08-02-2025 Cobalamin (Vitamin B12) [Mass/volume] in Serum or Plasma Vitamin B12 Lab Routine Fatigue, unspecified type Leg cramping Expected: 08/02/2024 (Approximate), Expires: 08/02/2025 [facility] Comment on above: Expected: 08/02/2024 (Approximate), Expi res: 08/02/2025 Start: 08-02-2024 End: 08-02-2025 Comprehensive metabolic 2000 panel - Serum or Plasma Comprehensive metabolic panel Lab Routine Weight gain Fatigue, unspecified type Leg cramping Expected: 08/02/2024 (Approximate), Expires: 08/02/2025 [facility] Comment on above: Expected: 08/02/2024 (Approximate), Expi res: 08/02/2025 Start: 08-02-2024 End: 08-02-2025 Ferritin [Mass/volume] in Serum or Plasma Ferritin Lab Routine Fatigue, unspecified type Expected: 08/02/2024 (Approximate), Expires: 08/02/2025 [facility] Comment on above: Expected: 08/02/2024 (Approximate), Expi res: 08/02/2025 Start: 08-02-2024 End: 08-02-2025 Magnesium [Mass/volume] in Serum or Plasma Magnesium Lab Routine Leg cramping Expected: 08/02/2024 (Approximate), Expires: 08/02/2025 [facility] Comment on above: Expected: 08/02/2024 (Approximate), Expi res: 08/02/2025 Start: 08-02-2024 End: 08-02-2025 T3, reverse T3, reverse Lab Routine Mixed anxiety and depressive disorder Thyroid nodule (CMS/HCC) Expected: 08/02/2024 (Approximate), Expires: 08/02/2025 [facility] Work Phone: Comment on above: Expected: 08/02/2024 (Approximate), Expi res: 08/02/2025 Start: 08-02-2024 End: 08-02-2025 Thyroglobulin Antibody Thyroglobulin Antibody Lab Routine Mixed anxiety and depressive disorder Thyroid nodule (CMS/HCC) Expected: 08/02/2024 (Approximate), Expires: 08/02/2025 [facility] Comment on above: Expected: 08/02/2024 (Approximate), Expi res: 08/02/2025 Start: 08-02-2024 End: 08-02-2025 Thyroid peroxidase antibody Thyroid peroxidase antibody Lab Routine Mixed anxiety and depressive disorder Thyroid nodule (CMS/HCC) Expected: 08/02/2024 (Approximate), Expires: 08/02/2025 [facility] Comment on above: Expected: 08/02/2024 (Approximate), Expi res: 08/02/2025 Start: 08-02-2024 End: 08-02-2025 Vitamin B6 Vitamin B6 Lab Routine Fatigue, unspecified type Leg cramping Expected: 08/02/2024 (Approximate), Expires: 08/02/2025 [facility] Comment on above: Expected: 08/02/2024 (Approximate), Expi res: 08/02/2025 Start: 06-22-2024 End: 06-22-2024 Patient encounter procedure 06/22/2024 2:40 PM EST Office Visit [facility] [address] [place] [address] Alan Mcgee MD [address] [place] [address] Arrived [facility] Comment on above: Arrived Start: 06-22-2024 End: 06-22-2025 Thyrotropin [Units/volume] in Serum or Plasma TSH Lab Routine Subclinical hyperthyroidism (CMS/HCC) Expected: 06/22/2024 (Approximate), Expires: 06/22/2025 [facility] Comment on above: Expected: 06/22/2024 (Approximate), Expi res: 06/22/2025 Start: 06-22-2024 End: 06-22-2025 Thyroxine (T4) free [Mass/volume] in Serum or Plasma T4, free Lab Routine Subclinical hyperthyroidism (CMS/HCC) Expected: 06/22/2024 (Approximate), Expires: 06/22/2025 [facility] Comment on above: Expected: 06/22/2024 (Approximate), Expi res: 06/22/2025 Start: 06-22-2024 End: 06-22-2025 Triiodothyronine (T3) Free [Mass/volume] in Serum or Plasma T3, free Lab Routine Subclinical hyperthyroidism (CMS/HCC) Expected: 06/22/2024 (Approximate), Expires: 06/22/2025 [facility] Work Phone: Comment on above: Expected: 06/22/2024 (Approximate), Expi res: 06/22/2025 Start: 06-22-2024 End: 06-22-2025 US Thyroid gland US thyroid Imaging Routine Multinodular goiter (CMS/HCC) Expected: 06/22/2024, Expires: 06/22/2025 [facility] Comment on above: Expected: 06/22/2024, Expires: Start: 04-17-2024 Influenza vaccination Influenza Vaccine (#1) [facility] Start: 10-13-2023 End: 10-13-2023 Patient encounter procedure 10/13/2023 4:00 PM EST Office Visit [facility] [address] [facility] [place] [phone] Ruth Nuno, AGRICULTURAL EQUIPMENT OPERATOR [address] [place] [address] [facility] Start: 09-22-2023 End: 09-22-2023 Patient encounter procedure 09/22/2023 4:00 PM EST Office Visit [facility] [address] [place] [phone] Ruth Nuno, AGRICULTURAL EQUIPMENT OPERATOR [address] [place] [facility] [place] [address] Arrived [facility] Comment on above: Arrived Start: 09-22-2023 End: 09-22-2024 Thyroglobulin Thyroglobulin Lab Routine Anxiety Low TSH level Enlarged thyroid (CMS/HCC) Expected: 09/22/2023 (Approximate), Expires: 09/22/2024 [facility] Comment on above: Expected: 09/22/2023 (Approximate), Expi res: 09/22/2024 Start: 09-22-2023 End: 09-22-2024 Thyroid peroxidase antibody Thyroid peroxidase antibody Lab Routine Anxiety Low TSH level Enlarged thyroid (CMS/HCC) Expected: 09/22/2023 (Approximate), Expires: 09/22/2024 [facility] Comment on above: Expected: 09/22/2023 (Approximate), Expi res: 09/22/2024 Start: 09-22-2023 End: 09-22-2024 US Thyroid gland US thyroid Imaging Routine Enlarged thyroid (CMS/HCC) Expected: 09/22/2023, Expires: 09/22/2024 [facility] Work Phone: Comment on above: Expected: 09/22/2023, Expires: Start: 04-17-2023 Influenza vaccination Influenza Vaccine (#1) [facility] Start: 2021 Screening for malignant neoplasm of cervix [facility] Start: 01-30-2012 Screening for malignant neoplasm of cervix Pap Smear [facility] Immunizations Immunization Date Immunization Notes Care Provider Ina merchant 12-04-2022 tetanus toxoid, redu ellie diphtheria toxoid, and acellular pertussis vaccine, adsorbed Ruth Nuno AGRICULTURAL EQUIPMENT OPERATOR Work Phone: [facility] 07-10-2021 Pfizer Purple Cap SARS-CoV-2 Vaccination Ruthluis enrique Nuno AGRICULTURAL EQUIPMENT OPERATOR Work Phone: [facility] 06-05-2021 Pfizer Purple Cap SARS-CoV-2 Vaccination Ruthluis enrique Nuno AGRICULTURAL EQUIPMENT OPERATOR Work Phone: [facility] 05-28-2012 tetanus toxoid, redu ellie diphtheria toxoid, and acellular pertussis vaccine, adsorbed Ruth Nurys AGRICULTURAL EQUIPMENT OPERATOR Work Phone: [facility] Payers Date Payer Category Payer Private Health Insurance [employer] [id number] 2022 Unknown [employer] [id number] 2022-Present [address] [place] [address] [id number] 1991 Unknown [id number] 2.16.840.1.751470.3.579.2. 593 1991 Unknown [id number] 2.16.840.1.962440.3.579.2. 593 1991 Unknown [id number] 2.16.840.1.304892.3.579.2. 593 1991 Unknown [id number] 2.16.840.1.456108.3.579.2. 593 1991 Unknown [id number] 2.16.840.1.840173.3.579.2. 593 1991 Unknown [id number] 2.16.840.1.433491.3.579.2. 593 1991 Unknown [id number] 2.16.840.1.612566.3.579.2. 593 1991 Unknown [id number] 2.16.840.1.960012.3.579.2. 593 1991 Unknown [id number] 2.16.840.1.095647.3.579.2. 593 1991 Unknown [id number] 2.16.840.1.466534.3.579.2. 593 1991 Unknown [id number] 2.16.840.1.662287.3.579.2. 593 1991 Unknown [id number] 2.16.840.1.371310.3.579.2. 1259 1991 Unknown [id number] 2.16.840.1.615878.3.579.2. 1259 1991 Unknown [id number] 2.16.840.1.632459.3.579.2. 1259 1991 Unknown [id number] 2.16.840.1.199462.3.579.2. 1259 1991 Unknown [id number] 2.16.840.1.224922.3.579.2. 1259 1991 Unknown [id number] 2.16.840.1.255551.3.579.2. 1259 1991 Unknown [id number] 2.16.840.1.892384.3.579.2. 1259 1991 Unknown [id number] 2.16.840.1.962591.3.579.2. 1259 1959 Self-pay 1959 Unknown [id number] Unknown [id number] 2..840.1.280685.19 Unknown [id number] 2.16.840.1.596405.3.579.2. 593 Unknown [id number] 2..840.1.856920.3.579.2. 593 Social History Date Type Detail Facility Start: 05-18-2023 End: 01-12-2024 Sex Assigned At [facility] Start: 05-19-2023 Tobacco smoking stat [facility] Never smoked tobacco [facility] History of tobacco use Passive smoker [facility] Start: 05-19-2023 Tobacco use and exposure Smoke less tobacco non-user [facility] Start: 09-21-2023 Alcohol intake Ex-drinker (finding) [facility] Start: 05-18-2023 End: 01-12-2024 [facility] Within the last year , have you been afraid of your partner or ex-partner? No [facility] Are you now , , , , never or living with a partner? [facility] How often to you hav e a drink containing alcohol? Monthly or less [facility] How many standard dr inks containing alcohol do you have on a typical day? 1 or 2 [facility] How often do you hav e 6 or more drinks on 1 occasion? Less than monthly [facility] How hard is it for y ou to pay for the very basics like food, housing, medical care, and heating Not hard at all [facility] Do you feel stress - tense, restless, nervous, or anxious, or unable to sleep at night because your mind is troubled all the time - these days [OSQ] Only a little [facility] (I/We) worried whedinh er (my/our) food would run out before (I/we) got money to buy more. Never true [facility] Start: 1990 Sex Assigned At Not on file [facility] Start: 09-22-2023 End: 08-02-2024 Alcohol intake Current drinker of alcohol (finding) [facility] How often do you hav e 6 or more drinks on 1 occasion? Never [facility] Clinical Notes 06-17-2021 to 08-19-2024 Telephone Encounter - Ruth Nuno, AGRICULTURAL EQUIPMENT OPERATOR - 08/19/2024 4:52 PM ESTTelephone Encounter - Ruthshaila Nuno, AGRICULTURAL EQUIPMENT OPERATOR - 08/19/2024 4:52 PM Miramitzyshaila Nuno, AGRICULTURAL EQUIPMENT OPERATOR - 08/02/2024 4:00 PM EST Note Date & Type Note Facility 08-19-2024 Telephone encount er Note Spoke with pt, Vit B12 WNL, Vit B6 WNL, Mg WNL at 2.1, Ferritin 20-low normal-not taking iron, but has supplements at home ie 18mg. I would enc her to take it daily. SE's nausea, constipation, increase water, frutit/vegetables, can take stool softner. Can make black. Enc high iron foods, red meat nuts, green leafy vegetables, fortified cereal, Poulty, seafood. Had Vit C with it. Vit D 27-low. Was taking Vit D, but stopped it r/t was trying to do through diet. 2000 international daily. CMP WNL, CBC WNL, Thyroglobulin <1, TPO 13 (was 18), Reverse T3 WNL at 15. Will repeat Vit D and ferritin in 6 months. Thyroid U/S report reviewed-see below. Plan to repeat U/S in approx [address] Mcgee can see lab and U/S. Dr Mcgee has TSH and Free T3 and Free T4 per Endos' note (I think before her next appt with him. 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 More leafy greens, proteins. Pt appreciated the call Study Result Narrative & Impression EXAM: US THYROID HISTORY: Not provided TECHNIQUE: Real-time ultrasonographic evaluation with color-flow Doppler imaging is provided for the soft tissues of the neck. COMPARISON: No comparison FINDINGS: The right lobe of the thyroid gland measures 4.6 x 1.5 x 1.3 cm. Nodularity in the right lobe measuring 0.7 x 0.4 x 0.3 cm. Isoechoic. Not very well defined. No associated calcification. Nodular in the right lobe measuring 0.6 x 0.6 x 0.4 cm. Isoechoic. Not well defined. The left lobe of the thyroid gland measures 4.9 x 1.5 x 1 cm. There is a 0.2 by 0.3 x 0.3 cm nodular area in in the left lobe of the thyroid gland. Hypoechoic. Not very well defined. No associated calcification. The isthmus measures 0.2 cm. IMPRESSION: Slightly heterogeneous parenchymal echotexture of each lobe of the thyroid gland. There are subtle nodules, none very discrete. No associated calcification. Assessment: TI rads score 2 Recommendation: Follow-up as per clinical indication. Electronically Signed:Electronically signed by SUJATHA GONZALES MD at 10-Aug-2024 03:49:23 PM [facility] 08-19-2024 Miscellaneous Notes Formattin g of this note is different from the original. Spoke with pt, Vit B12 WNL, Vit B6 WNL, Mg WNL at 2.1, Ferritin 20-low normal-not taking iron, but has supplements at home ie 18mg. I would enc her to take it daily. SE's nausea, constipation, increase water, frutit/vegetables, can take stool softner. Can make black. Enc high iron foods, red meat nuts, green leafy vegetables, fortified cereal, Poulty, seafood. Had Vit C with it. Vit D 27-low. Was taking Vit D, but stopped it r/t was trying to do through diet. 2000 international daily. CMP WNL, CBC WNL, Thyroglobulin <1, TPO 13 (was 18), Reverse T3 WNL at 15. Will repeat Vit D and ferritin in 6 months. Thyroid U/S report reviewed-see below. Plan to repeat U/S in approx [address] Mcgee can see lab and U/S. Dr Mcgee has TSH and Free T3 and Free T4 per Endos' note (I think before her next appt with him. 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 More leafy greens, proteins. Pt appreciated the call Study Result Narrative & Impression EXAM: US THYROID HISTORY: Not provided TECHNIQUE: Real-time ultrasonographic evaluation with color-flow Doppler imaging is provided for the soft tissues of the neck. COMPARISON: No comparison FINDINGS: The right lobe of the thyroid gland measures 4.6 x 1.5 x 1.3 cm. Nodularity in the right lobe measuring 0.7 x 0.4 x 0.3 cm. Isoechoic. Not very well defined. No associated calcification. Nodular in the right lobe measuring 0.6 x 0.6 x 0.4 cm. Isoechoic. Not well defined. The left lobe of the thyroid gland measures 4.9 x 1.5 x 1 cm. There is a 0.2 by 0.3 x 0.3 cm nodular area in in the left lobe of the thyroid gland. Hypoechoic. Not very well defined. No associated calcification. The isthmus measures 0.2 cm. IMPRESSION: Slightly heterogeneous parenchymal echotexture of each lobe of the thyroid gland. There are subtle nodules, none very discrete. No associated calcification. Assessment: TI rads score 2 Recommendation: Follow-up as per clinical indication. Electronically Signed:Electronically signed by SUJATHA GONZALES MD at 10-Aug-2024 03:49:23 PM [facility] documented in this encounter [facility] 08-02-2024 History of Presen t illness Narrative Images from the original note were not included. Subjective Patient ID: Diane Cardoza is a 34 y.o. female who presents for Weight Gain (Eating healthy, fatigue). HPI: Saw Dr Mcgee and per pt, he wasn't worried about thyroid. Plans to recheck in 1 year. She has had weight gain 15-20#, he didn't think hormone testing would show anything. Pretty healthy diet- lean meats, a lot of vegetables, but then overeats. 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 Fatigue hits around 10AM, has orange jucie and coconut water then, instead of coffee, another slump around 3PM. Gets 5,000 steps a day at work and rides an exercise bike 1 day a week and occ does high cardio exercise. Pt has also had a lot of acne on cheeks and yashira chin for this past year. A lot of chin hairs, dog hair clipper feels hair is not taking color treatment like a normal person . Needed to use more color/darker color than usual. Having a period every 2 weeks, pt is on Progestin only r/t breast feeding, plans to wean off of breast feeding this month. Pt has appt coming up in Aug with ASSOCIATE DOCTOR Dr Blanco. Review of Systems Constitutional: Positive for appetite change and fatigue. Negative for chills and fever. Appetite is up and down-see HPI HENT: WNL, dry in house. Turned humidifier on now Respiratory: Negative for cough and shortness of breath. Cardiovascular: Negative for chest pain. Gastrointestinal: Negative for abdominal pain and blood in stool. No change in bowels, better with electric sealing machine operator help. No GERD Genitourinary: Negative for difficulty urinating and dysuria. Musculoskeletal: No joint pain, calf cramping occ Skin: Acne-see HPI. Pt states she had a weird rash few weeks ago on left inner thigh with several raised bumps-itched. She used anti-itch spray and it helped. Left upper arm had a small pink patch, fading now. Does not think it was ring worm-may have been eczema Neurological: Negative for dizziness and headaches. Psychiatric/Behavioral: Sleeping well, gets 8-9 hours of sleep a night, except son Timmy gets up 1AM. No snoring, no sleep apnea. Mood is good with 25m g of Sertraline, but hectic in AM getting out of house 09/01/2023 8:32 AM 09/22/2023 3:58 PM 10/13/2023 4:04 PM 12/14/2023 12:07 PM 01/12/2024 4:02 PM 06/22/2024 2:21 PM 08/02/2024 3:57 PM Vitals BMI 22.94 kg/m2 22.94 kg/m2 22.81 kg/m2 24.42 kg/m2 24.29 kg/m2 26.96 kg/m2 27.19 kg/m2 BSA (m2) 1.71 m2 1.71 m2 1.71 m2 1.77 m2 1.76 m2 1.84 m2 1.84 m2 Systolic 114 130 120 116 126 114 120 Diastolic 68 86 78 66 82 78 82 Heart Rate 64 72 102 82 74 72 SpO2 98 % Resp 18 16 Height (in) 5' 5.5 5' 5 Weight (lb) 140 140 139.2 149 148.2 162 163.4 Visit Report Report Report Report Report Report Objective Physical Exam Vitals reviewed. Constitutional: General: She is not in acute distress. HENT: Ears: Comments: TM cloudy, no erythema Nose: Comments: Mild-mod edema and pink, no rhinorrhea Mouth/Throat: Mouth: Mucous membranes are moist. Pharynx: Oropharynx is clear. No posterior oropharyngeal erythema. Cardiovascular: Rate and Rhythm: Normal rate and regular rhythm. Pulmonary: Effort: Pulmonary effort is normal. Breath sounds: Normal breath sounds. Comments: No cough Abdominal: General: Bowel sounds are normal. Palpations: Abdomen is soft. Musculoskeletal: Comments: Normal gait Skin: General: Skin is warm and dry. Neurological: Mental Status: She is alert and oriented to person, place, and time. I have reviewed and reconciled the history and medication list with the patient today. Assessment/Plan Diagnoses and all orders for this visit: Mixed anxiety and depressive disorder: On Sertraline 25mg daily, or occ 1.5 tabs-twice a week on stressful days ie Thu and , prefers to continue this. - T3, reverse; Future - Thyroid peroxidase antibody; Future - Thyroglobulin Antibody; Future Thyroid nodule (CMS/HCC): Open order is in - T3, reverse; Future - Thyroid peroxidase antibody; Future - Thyroglobulin Antibody; Future Acne, unspecified acne type: Will get lab, could do topical Tx of may want to see Dermatology. Will do lab first Weight gain: Working with a electric sealing machine operator. Will get lab - CBC and differential; Future - Comprehensive metabolic panel; Future Fatigue, unspecified type: Enc adquate rest. Pt states she is sleeping 8-9 hours a night, not snoring. Pt has thyroid U/S order, she states needs to schedule that yet. - Comprehensive metabolic panel; Future - Ferritin; Future - Vitamin B6; Future - Vitamin B12; Future Leg cramping: Will get lab - Comprehensive metabolic panel; Future - Magnesium; Future - Vitamin B6; Future - Vitamin B12; Future Family history of osteoporosis in mother: Will get Vit D level Comments: maternal grandmother also Orders: - Vitamin D 25 hydroxy; Future Irregular periods: Pt sees Dr Blanco, I enc her to talk with him about irregular periods and hormone labs ie FSH, LH, testosterone, ect. PVU she has appt in Aug with him and will discuss F/U if concerns and for wellness. PVU documented in this encounter [facility] 06-22-2024 History of Presen t illness Narrative Diane Cardoza is a 34 y.o. female Alan Mcgee MD presents with chief complaint of Thyroid Problem and Follow-up HPI: IM : 06/2024 Follow up visit in 01/2024 for thyroid lab within normal limits TSH 1.82, free T4 0.9 ( 0.8-1.8), free T3 2.7 ( 2.3-4.3), clinically euthyroid. HPI: 11/2023 New patient sent from Dr. Janet Sosa for abnormal thyroid lab, which is found TSH 0.25 in the low side, free T4 of 0.87 normal, free T3 of 2.13, TPO 18 (less than 9), TG antibody 1, negative. Ultrasound done shows right lobe 4.8 x 1.5 x 1.3 and there is a small nodule, 6 x 5 x 4 mm solid, hypoechoic, symmetric in shape with lobulated margin. No echogenic foci, TR4 and left lobe 4.7 x 1.5 x 1.1 cm. There is 3 x 2 x 2 mm thyroid nodule, which is solid and hypoechoic with wider than taller in shapes, smooth margin. No echogenic foci, TR4 and not on any thyroid medication. She has three kids, 11 and 6 and 1 years old. Mom has nodule and is in process of evaluation. No one has thyroid cancer so far. SUBJECTIVE: MEDICATIONS: Current Outpatient Medications Medication Instructions cholecalciferol (VITAMIN D-3) 500 Units, Daily MULTIPLE MINERALS-VITAMINS PO Take by mouth. NUTRAFOL norethindrone (JENCYCLA) 0.35 mg, Oral, Daily [place]-3-6-9 capsule 1 capsule, Daily sertraline (Zoloft) 25 MG tablet TAKE 1 AND 1/2 TABLETS BY MOUTH EVERY MORNING ALLERGIES: Allergies Allergen Reactions Ceclor [Cefaclor] Penicillins Past Medical History: Diagnosis Date Abnormal results of thyroid function studies Anemia Anxiety Constipation 05/15/2023 COVID-19 05/15/2023 Cystic fibrosis (CMS/HCC) Depression (CMS/HCC) Fibrocystic breast disease Nontoxic multinodular goiter (CMS/HCC) No past surgical history on file. REVIEW OF SYMPTOMS: 14 POINT OF SYSTEM REVIEWED AND NEGATIVE OBJECTIVE: Visit Vitals BP 114/78 Pulse 74 Resp 16 Ht 5' 5 Wt 162 lb BMI 26.96 kg/m Smoking Status Never BSA 1.84 m Physical Exam Constitutional: Appearance: Normal appearance. She is normal weight. HENT: Head: Normocephalic and atraumatic. Right Ear: External ear normal. Nose: Nose normal. Mouth/Throat: Pharynx: Oropharynx is clear. Eyes: Extraocular Movements: Extraocular movements intact. Pupils: Pupils are equal, round, and reactive to light. Cardiovascular: Rate and Rhythm: Normal rate and regular rhythm. Pulmonary: Effort: Pulmonary effort is normal. Abdominal: General: Abdomen is flat. Palpations: Abdomen is soft. Musculoskeletal: General: Normal range of motion. Skin: General: Skin is warm. Neurological: General: No focal deficit present. Mental Status: She is alert. Psychiatric: Mood and Affect: Mood normal. Behavior: Behavior normal. ASSESSMENT AND PLAN: Assessment/Plan Diagnoses and all orders for this visit: Subclinical hyperthyroidism (CMS/HCC) - T3, free; Future - T4, free; Future - TSH; Future Thyroid function tests within normal limits in May/2024, no need for medication, we will watch repeat thyroid function tests in 1 year. Multinodular goiter (CMS/HCC) - US thyroid; Future With largest nodule 6 mm right lobe 3 mm and left lobe repeat ultrasound in 1 year Follow up in about 1 year (around 06/22/2025). documented in this encounter [facility] 09-22-2023 History of Presen t illness Narrative Images from the original note were not included. Subjective Patient ID: Diane Cardoza is a 33 y.o. female who presents for ER Follow-up (Elevated heart rate). HPI: Sx's started the night before she went to the ER (. Could feel heart rate jump ie was in the 100's all night, bounding, couldn't get warm. Pulse still high in AM. [place] off. Exhausted and tense upper back, hurt to move head. 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 So went to , they couldn't do anything, so went to ER in [facility] 09/10/23. They did EKG, lab and got IV fluids r/t was dehydrated. Per pt gave her a Beta tj there, no Rx. Was told thyroid was slightly off. Has been having heavy feeling in chest for couple of days every month or so, ongoing for the past year or so and lightheaded/slow motion feeling. Feeling that way now, and if takes deep breath chest feels tighter, not as bad as last week. Almost like anxiety/depression. This year and last year have been pretty bad. She wrote down feelings down when she felt off. Per her phone: try to prepare for a good day and no matter what overwhelmed, begin crying, feels not good enough pretty pretty, lazy, inadequate, stupid. Wants to distancce self, not being able to talk to anyone/embarressed about it. Mess, disorganization, chaos, ineffiencies, wasting time are triggers. Loss of focus motion, forget fullness, fatigue, morning H/A during these periods of time. No thought of hurting self. No energy drinks, no marijuana or street drugs. Rare alcohol ie at [place]. Was drinking 3 cups of regular coffee, now 1/2 caff or Decaf, less than 200mg or less per day. Some chocolate. Still breast feeding 9 month old-hopes to continue this for another year Review of Systems Constitutional: Positive for fatigue. Negative for chills and fever. Enjoying more chocolate the last 2 weeks, otherwise eats well. Tired, but not sleeping well with 9 month old HENT: Pretty good at this time. Just got a whole house humidifier now right nares was swollen tonsil had been large and had stuff on then after the ER Respiratory: Negative for cough. Cardiovascular: Negative for chest pain. But feels heavy occ-see HPI, Denies irregular feeling pulse. No edema Gastrointestinal: Negative for abdominal pain, nausea and vomiting. No change in bowels now (had been constipated, last week) Genitourinary: Negative for difficulty urinating and dyspareunia. Skin: Negative for rash. Right breast has a mole, itches. Looked and has a mole pink was open/bled. Righ lower leg, left abdomen -brown area annd face under lip raised area Did nt use neosporin Pt has not seen Derm yet, they did call her this past week-plans to call them back Neurological: Positive for light-headedness. Psychiatric/Behavioral: See Above, up 2-3 times during the night to breast feed. See HPI for mood Objective Physical Exam Constitutional: General: She is not in acute distress. HENT: Ears: Comments: TM cloudy Nose: Comments: Right mod edema and erythema, left sl-mod. No rhinorrhea. Mouth/Throat: Mouth: Mucous membranes are moist. Pharynx: Oropharynx is clear. No posterior oropharyngeal erythema. Eyes: Extraocular Movements: Extraocular movements intact. Comments: Glasses on Neck: Comments: Enlarged thryoid Cardiovascular: Rate and Rhythm: Normal rate and regular rhythm. Comments: Rate 76 Pulmonary: Effort: Pulmonary effort is normal. Breath sounds: Normal breath sounds. Comments: No cough Abdominal: General: Bowel sounds are normal. Palpations: Abdomen is soft. Tenderness: There is no abdominal tenderness. Musculoskeletal: Cervical back: Neck supple. Comments: Normal gait Lymphadenopathy: Cervical: Cervical adenopathy present. Skin: General: Skin is warm and dry. Findings: No rash. Neurological: Mental Status: She is alert and oriented to person, place, and time. Psychiatric: Comments: Cooperative, sl anxious, well groomed, good eye contact 11/19/2022 12:00 PM 11/26/2022 12:00 PM 12/02/2022 12:00 PM 01/15/2023 10:03 AM 05/19/2023 4:24 PM 09/01/2023 8:32 AM 09/22/2023 3:58 PM Vitals BMI 26.76 kg/m2 26.86 kg/m2 26.49 kg/m2 24.18 kg/m2 22.88 kg/m2 22.94 kg/m2 22.94 kg/m2 BSA (m2) 1.87 m2 1.88 m2 1.86 m2 1.78 m2 1.71 m2 1.71 m2 1.71 m2 Systolic 120 120 120 122 124 114 130 Diastolic 78 82 70 74 76 68 86 Heart Rate 72 64 Height (in) 5' 6 5' 6 5' 6 5' 5.5 Weight (lb) 165.8 166.4 164.12 149.8 139.6 140 140 Visit Report Report Report Report Assessment/Plan Diagnoses and all orders for this visit: Reviewed ER notes: CMP WNL except alk phos elevated-pt denies abd pain/N/V. Negative swabs for viruses, although negative WBC had been elevated, differential sl off, H/H WNL. Pt looks like sinus infection-see below. TSH 0.25-sl low, Free T4 0.88-WNL, Free T3 2.13-sl low. See below Pulse fast-good in office today. Pt declined halter monitor or cardiology referral at this time Chest tightness: Discussed could be r/t anxiety Anxiety Comments: Pt feel she may have been having issues for awhile. She has been on med in the past, thinks Sertraline. Feeling more anxious than depressed. Rx for Sertraline, start 1/2 tab for first week and then increase if tolerating. SE's reviewed, can caue nausea so take with food, can make tired- so take at night. Safe with breast feeding. Don't stop abruptly. Discussed Xanax or Ativan at this time-discussed controlled medication, not suggested while breast feeding. Consider counseling Orders: - Thyroid peroxidase antibody; Future - Thyroglobulin; Future - sertraline (Zoloft) 25 MG tablet; Take 1 tablet (25 mg) by mouth in the morning for 60 doses. Low TSH level: Pt states Mom has thyroid issues. Will get lab and U/S - Thyroid peroxidase antibody; Future - Thyroglobulin; Future Enlarged thyroid ([facility]/HCC) Comments: Will get thyroid U/S and TPO, thyroglobulin levels Orders: - US thyroid; Future - Thyroid peroxidase antibody; Future - Thyroglobulin; Future Acute non-recurrent sinusitis of other sinus - azithromycin (Zithromax) 250 MG tablet; Take 2 tablets (500 mg) by mouth Daily for 1 day, THEN 1 tablet (250 mg) Daily for 4 days. Enc fluids yashira water, tea with honey broth, steamy showers. Tylenol PRN. Rx for ATB. Discussed GI SE's, decrease fruits and vegetables while on ATB, Could take Probiotic, Discussed foods that bind if gets diarrhea ie Yogurt, rice, applesauce, bananas Skin abnormality: Pt plans to see Dermatology 50 in visit today, reviewed ER record, discussed Sx's, mood/Rx's sent. 51 in visit today reviewed ER report, Sx's discussed Rx's sent documented in this encounter [facility] 06-17-2021 Evaluation note Encounter Date Diagnosis Assessment [...] Patient care instructions given in writting by [facility] Care At Home document. [place] Other Evaluation note[facility]ort [facility] [employer] [place] Other Evaluation note* Diagnosis Pulse fast- Primary Unspecified tachycardia Chest tightness Other chest pain Anxiety Anxiety state, unspecified Low TSH level Enlarged thyroid (CMS/HCC) Goiter, unspecified Acute non-recurrent sinusitis of other sinus Benign hydatidiform mole Skin abnormality Unspecified congenital anomaly of the integument documented in this encounter [facility] HealthcareEvaluation note* Diagnosis Subclinical hyperthyroidism (CMS/HCC)- Primary Thyrotoxicosis without mention of goiter or other cause, without mention of thyrotoxic crisis or storm Multinodular goiter (CMS/HCC) Nontoxic multinodular goiter documented in this encounter [facility] HealthcareEvaluation note* Diagnosis Mixed anxiety and depressive disorder- Primary Dysthymic disorder Thyroid nodule (CMS/HCC) Nontoxic uninodular goiter Acne, unspecified acne type Weight gain Other symptoms concerning nutrition, metabolism, and development Fatigue, unspecified type Leg cramping Family history of osteoporosis in mother Irregular periods documented in this encounter [facility] HealthcareEvaluation note* Diagnosis Fatigue, unspecified type- Primary Vitamin D deficiency documented in this encounter [facility] Healthcare Summary Purpose Family History No Family History Records FoundNo Family History Records Found Advance Directives No Advanced Directives Records FoundNo Advanced Directives Records Found Additional Source Comments REASON FOR VISIT (unrecogniz ed section and content) Reason Comments ER Follow-up Elevated heart rate Reason Comments Thyroid Problem Follow-up Reason Comments Weight Gain Eating healthy, fati sabino INFORMATION SOURCE (unrecogn ized section and content) DATE CREATED AUTHOR 12/12/2022 [facility] Lil[facility]zzo DATE CREATED AUTHOR AUTHOR'S DAVID FERRELL 08/13/2024 [facility] Care Teams (unrecognized sec tion and content) Breaker Unit Assembler Relationship Specialty Start Date End Date Janet Sosa MD [address] [facility] [place] [address] PCP - General Family Medicine 01/15/23 Breaker Unit Assembler Relationship Specialty Start Date End Date Janet Sosa MD [address] [facility] [place] [address] PCP - General Family Medicine 01/15/23 Breaker Unit Assembler Relationship Specialty Start Date End Date Janet Sosa MD [address] [facility] [place] [address] PCP - General Family Medicine 01/15/23 Breaker Unit Assembler Relationship Specialty Start Date End Date Janet Sosa MD [address] [facility] [place] [address] PCP - General Family Medicine 01/15/23 Breaker Unit Assembler Relationship Specialty Start Date End Date Janet Sosa MD [address] [facility] [place] [address] PCP - General Family Medicine 01/15/23 Breaker Unit Assembler Relationship Specialty Start Date End Date Janet Sosa MD [address] [facility] [place] [address] PCP - General Family Medicine 01/15/23 Breaker Unit Assembler Relationship Specialty Start Date End Date Janet Sosa MD [address] [facility] [place] [address] PCP - General Family Medicine 01/15/23 FOR RECORDS PERTAINING TO PATIENTS WHO ARE [...] BE BASED ON THE PRIMARY CLINICAL RECORDS. [employer] [facility]. provides no warranty or guarantee of the accuracy or completeness of information in this document.
[2024-09-22 20:07] LABS: Age Gdln ACOG Testing Note (.); HPV Aptima Positive (Negative); HPV Genotype 16 Negative (Negative); HPV Genotype 18,45 Negative (Negative); IGP, Aptima HPV, rfx 16/18,45 Note (.)
== END 2024-09-15 19:02 | disposition home or self-care (01) ==
LOC: LAB 19:01
PROVIDERS: Visit Provider Obstetrics & Gynecology
DX: Z01.419 Encounter for gynecological examination (general) (routine) without abnormal findings (principal)
CPT/HCPCS: 87624; 87625; 88175

== ENCOUNTER 2024-12-12 10:48 | Outpatient (OUT) | payer OTHER, SELFPAY ==
[2024-12-12 16:42] LABS: Lactate Dehydrogenase 221 U/L (81-234)
[2024-12-14 04:12] LABS: AFP, Serum, Tumor Marker <1.8 ng/mL (0.0-6.4); CEA 0.9 ng/mL (0.0-4.7); Cancer Antigen (CA) 125 16.9 U/mL (0.0-38.1)
[2024-12-14 08:08] LABS: HCG Tumor Marker <1 mIU/mL (.)
== END 2024-12-12 10:49 | disposition home or self-care (01) ==
LOC: LAB 12-15 10:48
PROVIDERS: PCP Family Medicine; Visit Provider Obstetrics & Gynecology
DX: N83.299 Other ovarian cyst, unspecified side (principal)
CPT/HCPCS: 36415; 82105; 82378; 83615; 84702; 86304

== ENCOUNTER 2025-06-24 11:25 | Outpatient (OUT) | payer OTHER, SELFPAY ==
--- OUTSIDE RECORDS SUMMARY | 2025-06-24 11:29 | XMS_ITS | CCD ---
Author Organization [facility] CliniSyil Care Team Providers Care Marketing Coordinator Name Role Phone Shannan Torres Unavailable Paulina [...] Unavailable BELLA ., DR LOMAX Attending Unavailable CALHOUN, DR FARZANEH Condon Consulting Unavailable BELLA ., [...] Provider Janet Sosa MD Primary Care Provider Alan Varela MD Unavailable [phone] DAMI BLANCO Attending Unavailable BELLA DAMI Referring Unavailable JOHN NUNOZABETH A Attending Unavailable ALAN VARELA Attending Unavailable ALAN VARELA Referring Unavailable DAMI BLANCO Attending Unavailable BELLADAMI Referring Unavailable NURYSJOHN WATSONRUTH A Attending Unavailable EVERARDO, AHMAD F Referring Unavailable Geovani St MD Primary Care Provider Allergies Allergy ClassificationReported Allergen(s)Allergy TypeDate of OnsetReaction(s) Facility (19 sources)CefaclorDrug [id number] [facility] Work Phone: (1 source)CefaclorDrug AllergyThe [facility] Repository (1 source)PenicillinsDrug allergy (disorder)[facility] Repository (18 sources)PenicillinsPropensity to adverse xszrvmyxb23-70-1176RY[facility] Medications Current Medications MedicationDrug Class(es)DatesSig (Normalized)Sig (Original)azithromycin 250 mg oral tablet (2 sources)Macrolide AntimicrobialStart: 09-22-2023 End: 77-02-3158lkfo 2 tablets by mouth once daily, then take 1 tablet by mouth once dailyazithromycin (Zithromax) 250 MG tablet Indications: Acute non- recurrent sinusitis of other sinus Take 2 tablets (500 mg) by mouth Daily for 1 day, THEN 1 tablet (250 mg) Daily for 4 days. 6 tablet 0 09/22/2023 09/27/2023 Activedrospirenone 4 mg oral tablet (8 sources)ProgestinStart: 09-15-2024 End: 52-29-8061adnx 1 tablet by mouth once dailyDrospirenone (Slynd) 4 MG tablet Indications: Well woman exam with routine gynecological exam , Irregular periods/menstrual cycles Take 1 tablet by mouth Daily 84 tablet 3 09/15/2024 ActiveEthinyl Estradiol / Ferrous fumarate / Norethindrone (1 source)Estrogenfluconazole 150 mg oral tablet (2 sources)Azole AntifungalStart: 09-15-2024 End: 18-50-4843zrzjclqjjcb (Diflucan) 150 MG tablet Indications: Yeast infection Take 1 tablet (150 mg) by mouth every 3 (three) days for 2 doses 2 tablet 09/15/2024 09/19/2024 ActiveNON FORMULARY (12 sources)take 1 tablet by mouth once dailyNON FORMULARY Take 1 tablet by mouth Daily Biotoxin Binder Activenorethindrone 0.35 mg oral tablet (18 sources)Start: 06-09-2023 End: 02-12-6997hueq 1 tablet by mouth once dailynorethindrone (Jencycla) 0.35 MG tablet Indications: Uses control Take 1 tablet (0.35 mg) by mouth Daily 28 tablet 12 04/25/2024 PqipydKisch-0-0-9 capsule (15 sources)take 1 capsule by mouth once elqjfEwdvr-9-8-9 capsule Take 1 capsule by mouth Daily Activesertraline 25 mg oral tablet (17 sources)Serotonin Reuptake InhibitorStart: 53-16-4078opsi 1.5 tablets by mouth once dailysertraline (Zoloft) 25 MG tablet Indications: Anxiety Take 1.5 tablets (37.5 mg) by mouth Daily 45 tablet 3 02/14/2025 ActiveStart: 11-09-2024 sertraline (Zoloft) 25 MG tablet Indications: Anxiety TAKE 1 AND 1/2 TABLETS BY MOUTH EVERY BEYQMSO62 tablet 1 11/09/2024 ActiveStart: 87-64-8057ullycfufuu (Zoloft) 25 MG tablet Indications: Anxiety TAKE 1 AND 1/2 TABLETS BY MOUTH EVERY UDOWCAT78 tablet 1 08/30/2024 ActiveStart: 83-85-7732mnasubrnzp (Zoloft) 25 MG tablet Indications: Anxiety TAKE 1 AND 1/2 TABLETS BY MOUTH EVERY GHOEYWI13 tablet 1 07/01/2024 ActiveStart: 13-33-2167rnpraiggjr (Zoloft) 25 MG tablet Indications: Anxiety TAKE 1 AND 1/2 TABLETS BY MOUTH EVERY RVZNKHL15 tablet 1 05/02/2024 ActiveStart: 09-22-2023 End: 56-13-1044hxez 1 tablet by mouth in the morningsertraline (Zoloft) 25 MG tablet Indications: Anxiety Take 1 tablet (25 mg) by mouth in the morningfor 60 doses. 30 tablet 1 09/22/2023 11/21/2023 Active Completed/Discontinued Medications MedicationDrug Class(es)DatesSig (Normalized)Sig (Original)cholecalciferol 0.025 mg oral capsule (15 sources)Vitamin D End: 38-01-7789kxbu 1 capsule by mouth once in the morningcholecalciferol (Vitamin D-3) 25 MCG (1000 UT) capsule Indications: Vitamin D Deficiency Take 500 Units by mouth in the morning. 11/16/2024 DiscontinuedMULTIPLE MINERALS- VITAMINS PO (16 sources) End: 04-07-7970CXFZECIH MINERALS-VITAMINS PO Take by mouth. NUTRAFOL 11/16/2024 DiscontinuedMULTIPLE MINERALS-VITAMINS PO Take by mouth. NUTRAFOL ActiveMULTIPLE MINERALS-VITAMINS PO Take by mouth. NUTRAFOL 0 Active Problems Active Problems Problem ClassificationProblemDateDocumented DateEpisodic/ChronicAnxiety disorders (20 sources)Mixed anxiety and depressive disorder; Translations: [Other specified anxiety disorders]Onset: 706655-92-3877GqmqeumCwpzpqj dysrhythmias (2 sources)Pulse fast; Translations: [Tachycardia, unspecified]09-22-2023 EpisodicMalaise and fatigue (3 sources)Fatigue; Translations: [Other fatigue]39-28-1062OukjwiocKpzpobqgf disorders (10 sources)Irregular menstruation, unspecified; Translations: [Irregular periods]Onset: 63-39-4338HyaweysBrawmxy (2 sources)Mycosis; Translations: [Candidiasis, unspecified]54-68-0867Lwgqzlvi Nonmalignant breast conditions (18 sources)Fibrocystic disease of breast; Translations: [Diffuse cystic mastopathy of unspecified breast]Onset: 054407-42-2064JcgzwnuDtspaxyipuf chest pain (2 sources)Tight chest; Translations: [Other chest pain]33-33-1384Gfnrxcrj Nutritional deficiencies (1 source)Vitamin D deficiency; Translations: [Vitamin D deficiency, unspecified]18-81-5461XcvehlbAwjnt complications of (3 sources)Maternal care for excessive growth, unspecified trimester, not applicable or unspecified; Translations: [MAT CARE EXCSS FTL GRTH UNS TRI UNS] Onset: 77-16-6270LzmalwzxEgrup complications of (1 source)Maternal care for excessive growth, third trimester, not applicable or unspecified; Translations: [MAT CARE EXCSS FTL GRTH 3RD TRI UNS] Onset: 28-01-3534GzzzfykvOrncv complications of (2 sources)Hydatidiform mole, benign; Translations: [Hydatidiform mole, unspecified]96-46-8292JpuyowntGmkbx connective tissue disease (2 sources)Cramp in lower limb; Translations: [Cramp and spasm]08-02-2024 EpisodicOther endocrine disorders (2 sources)Polycystic ovary syndrome; Translations: [Polycystic ovarian syndrome]38-46-1955IezqjcnXsvot nutritional; endocrine; and metabolic disorders (2 sources)Weight increased; Translations: [Abnormal weight gain]08-02-2024 EpisodicOther and delivery including normal (20 sources)Encounter for routine follow-up; Translations: [Encounter for supervision of normal , unspecified, third trimester]Onset: 63-09-1963ZethctpyVmtci screening for suspected conditions (not mental disorders or infectious disease) (11 sources)Encounter for screening for diabetes mellitus; Translations: [Encounter for screening for malignantneoplasm of cervix]Onset: 07-16-2022 EpisodicOther skin disorders (2 sources)Disorder of skin; Translations: [Disorder of the skin and subcutaneous tissue, unspecified]75-28-7104WlhjofzoHqgis skin disorders (2 sources)Acne; Translations: [Acne, unspecified]92-17-1199TdzfceegVurtk upper respiratory infections (2 sources)Acute sinusitis; Translations: [Other acute sinusitis]09-22-2023 EpisodicOvarian cyst (4 sources)Complex cyst of left ovary; Translations: [Other ovarian cyst, left side]68-11-0869WykrwsgmEusapszu codes; unclassified (1 source)40 weeks gestation of ; Translations: [40 WEEKS GESTATION OF ]Onset: 94-79-7997FwayaiziAmvkbnqo codes; unclassified (1 source)36 weeks gestation of ; Translations: [36 WEEKS GESTATION OF ]Onset: 18-84-7160XvxrbnjhAjhdroqk codes; unclassified (2 sources)Family history of osteoporosis; Translations: [Family history of osteoporosis]66-64-6521GibccgctEorvtee disorders (20 sources)Goiter; Translations: [Nontoxic goiter, unspecified]Onset: 201029-84-4758UocuzkdSjowvdlzggzx (1 source)PERSONAL HISTORY OF COVID-19; Translations: [PERSONAL HISTORY OF COVID-19]Onset: 40-48-3709Xmuzlvknmnai (2 sources)Patient encounter -[phone] Past or Other Problems Problem ClassificationProblemDateDocumented DateEpisodic/ChronicDiabetes mellitus without complication (1 source)Other abnormal glucose; Translations: [OTHER ABNORMAL GLUCOSE]Onset: 83-10-8245EcdqpyiqGxvsvgjebqnjv and screening for infectious disease (5 sources)Encounter for screening for other viral diseases; Translations: [Contact with and (suspected) exposure to other viral communicable diseases] Onset: 06-17-2021 Resolved: 88-77-5794QbjggplnPtmh disorders (17 sources)Mood disordersOnset: 09-22-2023 Resolved: Other complications of (4 sources)Other specified related conditions, unspecified trimester; Translations: [OTH SPEC PREG RELATED COND UNS TRI]Onset: 81-56-5599XdyseixgXvawx female genital disorders (1 source)Other specified noninflammatory disorders of vagina; Translations: [OTH SPEC NONINFLAMMATORY D/O VAGINA]Onset: 57-89-5866JcpqzfjoGargm gastrointestinal disorders (18 sources)Constipation; Translations: [Constipation, unspecified]Onset: 05-15-2023 Resolved: 309745-72-9003IhigproaDpcprlvx codes; unclassified (1 source)Weeks of gestation of not specified; Translations: [WEEKS GESTATION NOT SPEC]Onset: 06-77-9554ZmrmvohfCpalb infection (18 sources)Disease caused by 2019-nCoV; Translations: [COVID-19]Onset: 05-15-2023 Resolved: 243887-64-3641DbwcmunmCpukz infection (1 source)COVID-19Onset: 06-21-2021 Resolved: 06-21-2021 Results Test NameValueInterpretationReference RangeFacilityUS PELVIC COMPLETE W/ TVon 21-11-4510QQ PELVIC COMPLETE W/ TVEXAM: Pelvic Ultrasound, Transvaginal and Transabdominal. REASON FOR EXAM: Follow up left ovary cyst. TECHNIQUE: Transabdominal and endovaginal scanning was performed, including color Doppler. FINDINGS: Bladder: Smooth, normal margins. No obvious masses or diverticula. Myometrium: Smooth, normal echogenicity with a small, hypoechoic fibroid noted in the posterior aspect of the lower uterine segment measuring 1.0 x 0.9 x 0.4 cm. Endometrium: Normal thickness and echogenicity without fluid. Cervix: Unremarkable. Cul-de-sac: No significant free fluid present. Right Ovary: Normal follicles. Normal size and echogenicity. Intact blood flow. Left Ovary: Normal follicles. Normal size and echogenicity. Intact blood flow. Measurements: Uterus: 7.7 x 5.1 x 3.5 cm EM: 0.34 cm Right Ovary: 3.1 x 2.6 x 1.8 cm Left Ovary: 2.6 x 1.8 x 2.3 cm IMPRESSION, Transabdominal Pelvic Ultrasound: Small posterior lower uterine segment myometrial fibroid. A complex cystic structure of the left ovary present on 10/04/2024 has resolved. IMPRESSION, Endovaginal Pelvic Ultrasound: Small posterior lower uterine segment myometrial fibroid. A complex cystic structure of the left ovary present on 10/04/2024 has resolved. *This report is generated using voice recognition reporting (Hapzing). On occasion Lit Motorse erroneously drops words from the report or replaces the spoken word with similar sounding words. Please call with any questions/concerns regarding this report.* Dictated and transcribed 12/19/24/dpd This report has been electronically signed and approved by the interpreting radiologist.NormalNot AvailableALL LDHon [id number] [Catalytic activity/Vol] 221 U/L81 - 234 U/LNOMS HealthcareCLINISYNCNOMS HealthcareUS PELVIC COMPLETE W/ TVon [id number] PELVIC COMPLETE W/ TVTITLE OF EXAM: US PELVIC COMPLETE W/ TV REASON FOR EXAM: Irregular cycles TECHNIQUE: Grayscale, color, and spectral Doppler ultrasound evaluation of the pelvis. COMPARISON: None. FINDINGS: Measurements: Uterus: 8.0 x 5.2 x 3.7 cm Endometrial thickness: 0.9 cm Right ovary: 2.9 x 2.2 x 2.0 cm Left ovary: 3.3 x 2.5 x 2.7 cm The uterus is anteverted. There are no fibroids. The endometrial stripe is normal in thickness. The right ovary demonstrates physiologic follicles and normal low resistance arterial inflow and present venous flow on color and pulsed Doppler. The left ovary demonstrates physiologic follicles and normal low resistance arterial inflow and present venous flow on color and pulsed Doppler. There is an ovoid mixed cystic and solid mass arising from the ovary measuring 1.9 x 2.5 x 1.7 cm without significant associated hyperemia. There is no urinary bladder wall thickening. Anechoic luminal contents. Physiologic volume/distribution free fluid in the pelvis. No concerning adnexal mass visualized. IMPRESSION: Complex cystic and solid mass arising from the left ovary, 2.5 cm. In the setting of reported symptoms, consider endometrioma. Additional primary considerations include involuting follicle, corpus luteum cyst, and hemorrhagic or collapsing ovarian cyst. Malignancy is not entirely excluded. Recommend follow-up ultrasound of the pelvis in 3 to 6 months performed at a different phase of the patient's menstrual cycle. DICTATED ON: 10/04/2024 3:15 PM This report has been electronically signed and approved by the interpreting radiologist.NormalNot AvailableComment on above:Order Comment: US PELVIS- TRANSVAG IF INDICATED No LMP recorded.IGP,APTIMA HPV,AGE GDLNon 14-90-6095COK GDLN ACOG TESTINGNote. NOMS HealthcareComment on above:TESTS RESULT FLAG UNITS REF RANGE LAB Clinician Provided Cytology Information Source.............Cervix;Endocervix No. of containers..01 ThinPrep Vial Age Algo ACOG Erica... 3065 FLAG LEGEND: L-Low Normal,H-High Normal,LL-Alert Low,HH-Alert High <-Panic Low,>-Panic High,A-Abnormal,AA-Critical Abnormal Performed at: 01 =[address] [address] Ramandeep Ventura MD, HPV APTIMAPositiveAbnormalNegativeNOMS HealthcareComment on above:This nucleic acid amplification test detects fourteen high- risk HPV types (16,18,31,33,35,39,45,51,52,56,58,59,66,68) without differentiation. HPV GENOTYPE 16NegativeNegativeNOMS HealthcareHPV GENOTYPE 18,45NegativeNegative NOMS HealthcareComment on above:Performed at: =[address] [id number] Stage Director: Ramandeep Ventura MD, Phone: [phone] Performed at: [facility] [address], [place] [id number] Stage Director: Silvia Huggins MD, Phone: [phone] IGP, APTIMA HPV, RFX 16/18,45Note.NOMS HealthcareComment on above:TESTS RESULT FLAG UNITS REF RANGE LAB DIAGNOSIS: 02 NEGATIVE FOR INTRAEPITHELIAL LESION OR MALIGNANCY. FUNGAL ORGANISMS MORPHOLOGICALLY CONSISTENT WITH TAISHA SPECIES ARE PRESENT. Specimen adequacy: 02 Satisfactory for evaluation. Endocervical and/or squamous metaplastic cells (endocervical component) are present. Performed by: 02 Mayra Palacios Sales And Marketing Manager (ASCP) . 02 Note: Note 03 The Pap smear is a screening test designed to aid in the detection of premalignant and malignant conditions of the uterine cervix. It is not a diagnostic procedure and should not be used as the sole means of detecting cervical cancer. Both false-positive and false-negative reports do occur. Test Methodology: Note 03 This liquid based ThinPrep(R) pap test was screened with the use of an image guided system. HPV Genotype Reflex Note 02 Criteria met, see HPV Genotype results. FLAG LEGEND: L-Low Normal,H-High Normal,LL-Alert Low,HH-Alert High <-Panic Low,>-Panic High,A-Abnormal,AA-Critical Abnormal Performed at: 02 [facility] [employer] [id number] [employer] [facility] [address] [place] [address] Silvia Huggins MD, 03 [facility] [address] [address] Ramandeep Ventura MD, Interpretation and review of laboratory resultsAbAscension Providence Hospital BRUSH-SPATULA CERVIX ENDOCERVIX CLINISYNCSaint Joseph Health CenterUS THYROIDon [id number] THYROIDEXAM: US THYROID HISTORY: Not provided TECHNIQUE: Real-time [...] SUJATHA GONZALES MD at 10-Aug-2024 03:49:23 PM [facility] TeleradiologyNormalNot AvailableCytology Cervical or vaginal smear or scraping studyon [id number] Joseph Health CenterCBC AUTO DIFFon [id number] #0.0 103/ulNormal0.0-0.1[facility] HospitalComment on above:Performed By: #### RUBIGG #### [facility] [address] [address] [address] Radha Hurtadophils/100 WBC (Bld)0.2 %Normal0.2-2.0[facility] Comment on above:Performed By: #### RUBIGG #### [facility] [address] [address] [address] Radha Restrepo #0.0 103/ulNormal0.0-0.7The [facility] Medical CenterComment on above: Performed By: #### RUBIGG #### [facility] [address] [place] [address] Dr. Radha Hanosinophils/100 WBC (Bld)0.1 %Critically low0.9-7.0The [facility] Medical CenterComment on above:Performed By: #### RUBIGG #### [facility] [address] [place] [address] Dr. Radha Hanrythrocyte distribution width (RBC) [Ratio]13.2 %Iumvyn48.0-15.0 The [facility] Medical CenterComment on above:Performed By: #### RUBIGG #### [facility] [address] [place] [address] Dr. Radha YuHematocrit (Bld) [Volume fraction]36.8 %Khplqk45.0-48.0The [facility] Medical CenterComment on above:Performed By: #### RUBIGG #### [facility] [address] [place] [address] Dr. Radha YuHemoglobin (Bld) [Mass/Vol]12.3 g/iMQqvwqz90.0-16.0The [facility] CenterComment on above:Performed By: #### RUBDONALDG #### [facility] [address] [place] [address] Dr. Radha Simmons #0.09 10e3/ulCritically high0.00-0.03The [facility] Comment on above:Performed By: #### RUBDONALDG #### [facility] [address] [place] [address] Dr. Radha Simmons %0.6 %Critically high0.0-0.5The [facility] Medical CenterComment on above:Performed By: #### RUBDONALDG #### [facility] [address] [place] [address] Dr. Radha Penny #1.9 103/ulNormal1.2-3.8The [facility] CenterComment on above:Performed By: #### RUBIGG #### [facility] [address] [place] [address] Dr. Radha Cansecomphocytes/100 WBC (Bld)12.5 %Critically low20.5-60.0The [facility] CenterComment on above:Performed By: #### DEWEYG #### [facility] [address] [place] [address] Dr. Radha Plunkett DIFF REQNONormalThe [facility] CenterComment on above: Performed By: #### DEWEYG #### [facility] [address] [place] [address] Dr. Radha Richard (RBC) [Entitic mass]30.3 snCrhfoa93.7-34.0The [facility] CenterComment on above:Performed By: #### DEWEYG #### [facility] [address] [place] [address] Dr. Radha Richard (RBC) [Mass/Vol]33.4 g/nFNplqan80.9-35.2The [facility] CenterComment on above:Performed By: #### DEWEYG #### [facility] [address] [place] [address] Dr. Radha Odom (RBC) [Entitic vol]90.6 dSDjuofn56.0-99.0The [facility] CenterComment on above:Performed By: #### DEWEYG #### [facility] [address] [place] [address] Dr. Radha Anaya #1.1 103/ulCritically high0.3-0.8ThSt. Anthony's Hospital Comment on above:Performed By: #### DEWEYG #### [facility] [address] [place] [address] Dr. Radha Kearnsocytes/100 WBC (Bld)7.4 %Normal1.7-12.0[facility] Comment on above:Performed By: #### DEWEYG #### [facility] [address] [place] [address] Dr. Radha Marx #12.1 103/ulCritically high1.4-6.5The [facility] Comment on above:Performed By: #### DEWEYG #### [facility] [address] [place], [place] [id number] Dr. Radha Schwarzutrophils/100 WBC (Bld)79.2 %Critically high43.0-75.0The [facility] CenterComment on above:Performed By: #### RUBIGG #### [facility] [address] [place] [address] Dr. Radha Pattersonlet mean volume (Bld) [Entitic vol]10.4 fLNormal9.5-13.5The [facility] CenterComment on above:Performed By: #### RUBIGG #### [facility] [address] [place] [address] Dr. Radha YuPLT193 103/ekKmdhdj532-049Nsb [facility] CenterComment on above: Performed By: #### RUBIGG #### [facility] [address] [place] [address] Dr. Radha YuRBC4.06 106/ulCritically low4.20-5.40The [facility] CenterComment on above:Performed By: #### RUBIGG #### [facility] [address] [place] [address] Dr. Radha YuWBC15.2 103/ulCritically high4.0-11.0The [facility] CenterComment on above:Performed By: #### RUBIGG #### [facility] [address] [place] [address] Dr. Radha Hurtado #0.0 103/ulNormal0.0-0.1The [facility] CenterComment on above:Performed By: #### HCVPCRR #### [facility] [address] [place] [address] Dr. Radha Knappsophils/100 WBC (Bld)0.4 %Normal0.2-2.0The [facility] Comment on above:Performed By: #### HCVPCRR #### [facility] [address] [place] [address] Dr. Radha Restrepo #0.1 103/ulNormal0.0-0.7The [facility] CenterComment on above: Performed By: #### HCVPCRR #### [facility] [address] [place] [address] Dr. Radha Hanosinophils/100 WBC (Bld)1.0 %Normal0.9-7.0The [facility] Comment on above:Performed By: #### HCVPCRR #### [facility] [address] [place] [address] Dr. Radha Hanrythrocyte distribution width (RBC) [Ratio]13.6 %Zbztjb58.0-15.0 The [facility] CenterComment on above:Performed By: #### HCVPCRR #### [facility] [address] [place] [address] Dr. Radha YuHematocrit (Bld) [Volume fraction]37.3 %Qqkrvo94.0-48.0The [facility] CenterComment on above:Performed By: #### HCVPCRR #### [facility] [address] [place] [address] Dr. Radha YuHemoglobin (Bld) [Mass/Vol]12.9 g/pMBiptyp53.0-16.0The [facility] CenterComment on above:Performed By: #### HCVPCRR #### [facility] [address] [place] [address] Dr. Radha Simmons #0.03 10e3/ulNormal0.00-0.03The [facility] CenterComment on above:Performed By: #### HCVPCRR #### [facility] [address] [place] [address] Dr. Radha Simmons %0.3 %Normal0.0-0.5The [facility] CenterComment on above: Performed By: #### HCVPCRR #### [facility] [address] [place] [address] Dr. Radha Penny #2.8 103/ulNormal1.2-3.8The [facility] CenterComment on above:Performed By: #### HCVPCRR #### [facility] [address] [place] [address] Dr. Radha Cansecomphocytes/100 WBC (Bld)27.0 %Qkvycu22.5-60.0The [facility] CenterComment on above:Performed By: #### HCVPCRR #### [facility] [address] [place] [address] Dr. Radha Plunkett DIFF REQNONormalThe [facility] Medical CenterComment on above: Performed By: #### HCVPCRR #### [facility] [address] [place] [address] Dr. Radha Richard (RBC) [Entitic mass]30.4 qyMyuqha22.7-34.0The [facility] CenterComment on above:Performed By: #### HCVPCRR #### [facility] [address] [place] [address] Dr. Radha Richard (RBC) [Mass/Vol]34.6 g/zOTamujh16.9-35.2The [facility] CenterComment on above:Performed By: #### HCVPCRR #### [facility] [address] [place] [address] Dr. Radha Odom (RBC) [Entitic vol]88.0 oUDfvgye97.0-99.0The [facility] CenterComment on above:Performed By: #### HCVPCRR #### [facility] [address] [place] [address] Dr. Radha Anaya #1.0 103/ulCritically high0.3-0.8The [facility] Comment on above:Performed By: #### HCVPCRR #### [facility] [address] [place] [address] Dr. Radha Kearnsocytes/100 WBC (Bld)9.7 %Normal1.7-12.0[facility] Comment on above:Performed By: #### HCVPCRR #### [facility] [address] [place] [address] Dr. Radha Marx #6.5 103/ulNormal1.4-6.5The [facility] CenterComment on above:Performed By: #### HCVPCRR #### [facility] [address] [place], [place] [id number] Dr. Radha Schwarzutrophils/100 WBC (Bld)61.6 %Ojzuhs45.0-75.0The [facility] CenterComment on above:Performed By: #### HCVPCRR #### [facility] [address] [place] [address] Dr. Radha Mueller mean volume (Bld) [Entitic vol]11.9 fLNormal9.5-13.5The [facility] CenterComment on above:Performed By: #### HCVPCRR #### [facility] [address] [place] [address] Dr. Radha YuPLT237 103/wmCgcpzd578-483Qqn [facility] CenterComveterans affairs [facility] on above: Performed By: #### HCVPCRR #### [facility] [address] [place] [address] Dr. Radha YuRBC4.24 106/ulNormal4.20-5.40The [facility] CenterComveterans affairs [facility] on above:Performed By: #### HCVPCRR #### [facility] [address] [place] [address] Dr. Radha YuWBC10.5 103/ulNormal4.0-11.0The [facility] CenterComveterans affairs [facility] on above:Performed By: #### HCVPCRR #### [facility] [address] [place] [address] Dr. Radha YuDRUG SCREEN RAPID (URINE)on [id number]P The [facility] CenterComveterans affairs [facility] on above:Performed By: #### RUBIGG #### [facility] [address] [place] [address] Dr. Radha YuBARNegativeNormalNEGATIVECleveland Clinic Union HospitalComveterans affairs [facility] on above: Performed By: #### RUBIGG #### [facility] [address] [place] [address] Dr. Radha SheriffPNegativeNormalNEGATIVEThe [facility] CenterComveterans affairs [facility] on above: Performed By: #### RUBIGG #### [facility] [address] [place] [address] Dr. Radha AgostoZONegativeNormalNEGATIVECleveland Clinic Union HospitalComment on above: Performed By: #### RUBDONALDG #### [facility] [address] [place] [address] Dr. Radha ReynosoCNegativeNormalNEGATIVECleveland Clinic Union HospitalComment on above: Performed By: #### RUBIGG #### [facility] [address] [place] [address] Dr. Radha BrownSycamore Medical CenterComment on above: Result Comment: AMP (Amphetamine): 500ng/mL, BAR (Barbituates): 200 ng/mL, BZO (Benzodiazepines): 150 ng/mL, BUP (Buprenorphine): 10 ng/mL, JOCYE (Cocaine): 150 ng/mL, mAMP (Methamphetamine): 500 ng/mL, MTD (Methadone): 200 ng/mL, OPI (Opiates): 100 ng/mL, OXY (Oxycodone): 100 ng/mL, PCP (Phencyclidine): 25 ng/mL, PPX (Propoxyphene): 300 ng/mL, THC (Cannabinoids): 50 ng/mL, TCA (Trycyclic Antidepressants): 300 ng/mLPerformed By: #### RUBDONALDG #### [facility] [address] [place] [address] Dr. Radha YuDRUG CUT HEADERDRUG CLASS TEST SYSTEM CUT-OFF CONCENTRATIONS ARE FOLLOWS:NormalThe Trinity Health System East Campusment on above:Performed By: #### RUBDONALDG #### [facility] [address] [place] [address] Dr. Radha YumAMPNegativeNormalNEGATIVECleveland Clinic Union HospitalComveterans affairs [facility] on above: Performed By: #### RUBDONALDG #### [facility] [address] [place] [address] Dr. Radha YuMTDNegativeNormalNEGATIVECleveland Clinic Union HospitalComveterans affairs [facility] on above: Performed By: #### RUBDONALDG #### [facility] [address] [place] [address] Dr. Radha HutchinsINegativeNormalNEGATIVECleveland Clinic Union HospitalComment on above: Performed By: #### RUBIGG #### [facility] [address] [address] [address] Radha YuOXYNegativeNormalNEGChildren's Hospital of ColumbusComment on above: Performed By: #### RUBIGG #### [facility] [address] [place] [address] Dr. Radha YuPCPNegativeNormalNEGChildren's Hospital of ColumbusComment on above: Performed By: #### RUBIGG #### [facility] [address] [address] [address] Radha YuPPXNegativeNormalNEGATIVECleveland Clinic Union HospitalComment on above: Performed By: #### RUBIGG #### [facility] [address] [place] [address] Dr. Radha YuTCANegativeNormalNEGChildren's Hospital of ColumbusComment on above: Performed By: #### RUBIGG #### [facility] [address] [address] [address] Radha YuTHCNegativeNormalNEGChildren's Hospital of ColumbusComment on above: Performed By: #### RUBIGG #### [facility] [address] [place] [address] Dr. Radha Callejas AND SCREENon [id number] AND SCREENNegativeNormalThe [facility] CenterComment on above:Performed By: #### HCVPCRR #### [facility] [address] [place] [address] Dr. Radha Carter PREG GROWTHon [id number] PREG GROWTHEXAMINATION: US PREG GROWTH HISTORY: Large for gestation [...] growth detailed above. Electronically authenticated by: MEL MCNEILQUINN Date: 2022-11-06 16:26[facility] CenterGROUP B STREP CULTUREon 11-05-2022S. agalactiae Ag Ql (Unsp spec)Culture Observations: NEGATIVE FOR GROUP B STREPTOCOCCUS.NormalCleveland Clinic Union HospitalComment on above: Performed By: #### HCVPCRR #### [facility] [address] [place] [address] Dr. Radha YuGTT 3 HR PREGon [id number] [Mass/Vol]77 mg/bYUjnhpj75-467 [facility] HospitalComment on above:Performed By: #### HCVPCRR #### [facility] [address] [place] [address] Dr. Radha YuGlucose [Mass/Vol]169 mg/dLLakeHealth TriPoint Medical CenterComment on above:Performed By: #### HCVPCRR #### [facility] [address] [place] [address] Dr. Radha YuGlucose [Mass/Vol]152 mg/dLLakeHealth TriPoint Medical CenterComment on above:Performed By: #### HCVPCRR #### [facility] [address] [place] [address] Dr. Radha YuGlucose [Mass/Vol]107 mg/dLLakeHealth TriPoint Medical CenterComment on above:Performed By: #### HCVPCRR #### [facility] [address] [place] [address] Dr. Radha Cameron ACOG PANEL 2: 30 to 65on 08-15-2022..NormalCleveland Clinic Union HospitalComment on above:Result Comment: Performed at: WBPerformed By: #### RUBIGG #### [facility] [address] [place] [address] Dr. Radha YuAge Gdln ACOG Hwwpaxf09-22NfdnjrVblAdena Health SystemComveterans affairs [facility] on above:Performed By: #### RUBIGG #### [facility] [address] [place] [address] Dr. Radha YuDIAGNOSIS:CommentShelby Memorial Hospital on above: Result Comment: NEGATIVE FOR INTRAEPITHELIAL LESION OR MALIGNANCY. FUNGAL ORGANISMS MORPHOLOGICALLY CONSISTENT WITH TAISHA SPECIES ARE PRESENT. THIS SPECIMEN WAS RESCREENED PART OF OUR LICENSED ESTHETICIAN PROGRAM. Performed at: WBPerformed By: #### RUBIGG #### [facility] [address] [place] [address] Dr. Radha YuHPV AptimaNegativeNormalNegativeSt. Vincent Hospital on above:Result Comment: This nucleic acid amplification test detects fourteen high-risk HPV types (16,18,31,33,35,39,45,51,52,56,58,59,66,68) without differentiation. Performed at: =GPerformed By: #### RUBIGG #### [facility] [address] [place] [address] Dr. Radha YuHPV Genotype ReflexCommentShelby Memorial Hospital on above:Result Comment: Criteria not met, HPV Genotype not performed. Performed at: WBPerformed By: #### RUBIGG #### [facility] [address] [place] [address] Dr. Radha YuMethodology:CommentShelby Memorial Hospital on above: Result Comment: This liquid based ThinPrep(R) pap test was screened with the use of an image guided system. Performed at: WBPerformed By: #### RUBIGG #### [facility] [address] [place] [address] Dr. Radha YuNote:CommentShelby Memorial Hospital on above:Result Comment: The Pap smear is a screening test designed to aid in the detection of premalignant and malignant conditions of the uterine cervix. It is not a diagnostic procedure and should not be used as the sole means of detecting cervical cancer. Both false-positive and false-negative reports do occur. . Performed at: WBPerformed By: #### RUBIGG #### [facility] [address] [place] [address] Dr. Radha YuPerformed by:CommentShelby Memorial Hospital on above: Result Comment: Cele Matias, Sales And Marketing Manager (ASCP) Performed at: WBPerformed By: #### RUBIGG #### [facility] [address] [place] [address] Dr. Radha YuQC reviewed by:[facility] on above:Result Comment: Mariama Mueller, Supervisory Sales And Marketing Manager (ASCP) Performed at: Performed By: #### RUBIGG #### [facility] [address] [place] [address] Dr. Radha YuSpecimen adequacy:[facility] on above:Result Comment: Satisfactory for evaluation. Endocervical and/or squamous metaplastic cells (endocervical component) are present. Performed at: WBPerformed By: #### RUBIGG #### [facility] [address] [place] [address] Dr. Radha SolisC AUTO DIFFon [id number] #0.0 103/ulNormal0.0-0.1[facility] on above:Performed By: #### CBC #### [facility] [address] [place] [address] Dr. Radha YuBasophils/100 WBC (Bld)0.2 %Normal0.2-2.0The [facility] Comment on above:Performed By: #### CBC #### [facility] [address] [place] [address] Dr. Radha Restrepo #0.0 103/ulNormal0.0-0.7The [facility] on above: Performed By: #### CBC #### [facility] [address] [place] [address] Dr. Radha Hanosinophils/100 WBC (Bld)0.4 %Critically low0.9-7.0[facility] HospitalComment on above:Performed By: #### CBC #### [facility] [address] [place] [address] Dr. Radha Hanrythrocyte distribution width (RBC) [Ratio]13.2 %Qbthdz37.0-15.0 [facility] HospitalComment on above:Performed By: #### CBC #### [facility] [address] [place] [address] Dr. Radha YuHematocrit (Bld) [Volume fraction]34.1 %Critically low36.0-48.0 The [facility] CenterComment on above:Performed By: #### CBC #### [facility] [address] [place] [address] Dr. Radha YuHemoglobin (Bld) [Mass/Vol]11.4 g/dLCritically low12.0-16.0The [facility] CenterComment on above:Performed By: #### CBC #### [facility] [address] [place] [address] Dr. Radha Simmons #0.03 10e3/ulNormal0.00-0.03The [facility] CenterComment on above:Performed By: #### CBC #### [facility] [address] [place] [address] Dr. Radha Simmons %0.3 %Normal0.0-0.5The [facility] CenterComment on above: Performed By: #### CBC #### [facility] [address] [place] [address] Dr. Radha CandelarioH #1.9 103/ulNormal1.2-3.8The [facility] CenterComment on above:Performed By: #### CBC #### [facility] [address] [place] [address] Dr. Radha Cansecomphocytes/100 WBC (Bld)18.8 %Critically low20.5-60.0The [facility] CenterComment on above:Performed By: #### CBC #### [facility] [address] [place] [address] Dr. Radha Plunkett DIFF REQNONormalThe [facility] CenterComment on above: Performed By: #### CBC #### [facility] [address] [place] [address] Dr. Radha Richard (RBC) [Entitic mass]31.1 laBieezm56.7-34.0The [facility] HospitalComment on above:Performed By: #### CBC #### [facility] [address] [place] [address] Dr. Radha Richard (RBC) [Mass/Vol]33.4 g/yKJqbjin75.9-35.2The [facility] CenterComment on above:Performed By: #### CBC #### [facility] [address] [place] [address] Dr. Radha Richard (RBC) [Entitic vol]92.9 zKAdeqlk91.0-99.0The [facility] CenterComment on above:Performed By: #### CBC #### [facility] [address] [place] [address] Dr. Radha Anaya #0.4 103/ulNormal0.3-0.8The [facility] CenterComment on above:Performed By: #### CBC #### [facility] [address] [place] [address] Dr. Radha Kearnsocytes/100 WBC (Bld)4.4 %Normal1.7-12.0[facility] Comment on above:Performed By: #### CBC #### [facility] [address] [place] [address] Dr. Radha Marx #7.5 103/ulCritically high1.4-6.5The [facility] Comment on above:Performed By: #### CBC #### [facility] [address] [place] [address] Dr. Radha Schwarzutrophils/100 WBC (Bld)75.9 %Critically high43.0-75.0The [facility] CenterComment on above:Performed By: #### CBC #### [facility] [address] [place] [address] Dr. Radha Pattersonlet mean volume (Bld) [Entitic vol]9.8 fLNormal9.5-13.5The [facility] CenterComment on above:Performed By: #### CBC #### [facility] [address] [place] [address] Dr. Radha YuPLT250 103/shTftxgs875-721Xix [facility] CenterComment on above: Performed By: #### CBC #### [facility] [address] [place] [address] Dr. Radha YuRBC3.67 106/ulCritically low4.20-5.40The [facility] CenterComment on above:Performed By: #### CBC #### [facility] [address] [place] [address] Dr. Radha YuWBC9.8 103/ulNormal4.0-11.0The [facility] CenterComment on above: Performed By: #### CBC #### [facility] [address] [place] [address] Dr. Radha YuCHLAMYDIA/GONOCOCCUS DANELLE (SWAB/URINE/PAPon 08-32-8563Sdtlcpiws trachomatis, NAANegativeNormalNegativeThe [facility] CenterComveterans affairs [facility] on above: Performed By: #### CT/NGNA #### [facility] [address] [place] [address] Dr. Radha YuNeisseria gonorrhoeae, NAANegativeNormalNegativeThe [facility] CenterComment on above:Performed By: #### CT/NGNA #### [facility] [address] [place] [address] Dr. Radha YuGLUCOSE - 1HRon 63-05-2420Bqacokq [Mass/Vol]151 mg/dLCritically ttjw90-087Uww [facility] CenterComment on above:Performed By: #### GLU1HR #### [facility] [address] [place] [address] Dr. Radha YuVAGINITIS/VAGINOSIS DNA PROBEon [id number] speciesPositive AbnormalNegativeThe [facility] CenterComment on above:Performed By: #### RUBIGG #### [facility] [address] [address] [address] Radha Morton vaginalisNegativeAvita Health [facility] Comment on above:Performed By: #### RUBIGG #### [facility] [address] [address] [address] Radha Weeks vaginalisNegativeBlountvilleNegGrand Lake Joint [facility] District [facility] Hospital Comment on above:Performed By: #### RUBIGG #### [facility] [address] [address] [address] Radha Ramírez MATERNAL FOR SPINA BIFIDAon 49-53-0039BIY MoM1.29[facility] Medical CenterComment on above:Performed By: #### RUBIGG #### [facility] [address] [address] [address] Radha Ramírez Value75.6 ng/mLNormalCleveland Clinic Union HospitalComment on above: Performed By: #### RUBIGG #### [facility] [address] [address] [address] Radha Ramírez, Serum for Spina BifidaReportLakeHealth TriPoint Medical Center Comment on above:Performed By: #### RUBIGG #### [facility] [address] [address] [address] Radha NegronThe Christ HospitalComment on above:Result Comment: Nicki Montez, Ph.D., [facility] Director . References: Available Upon Request. . Multiples Of Median Cutoffs For AFP Elevations Valdez 2.5 Black 2.8 IDD 2.0 Twins 4.5 Abbreviation Definitions IDD - Insulin Dep Diabetes OSBR - Open Spina Bifida Risk . For further inquiries contact [employer] [facility] at [phone]. . This test was developed and its performance characteristics determined by [employer]. It has not been cleared or approved by the Food and Drug Administration.Performed By: #### RUBIGG #### [facility] [address] [address] [address] Radha Torres Age Collection Date20.0 weeksLakeHealth TriPoint Medical Center Comment on above:Performed By: #### RUBIGG #### [facility] [address] [place] [address] Dr. Radha Ennis, Age Based onUltrasoundLakeHealth TriPoint Medical CenterComment on above:Result Comment: 8.0 on 04/19/2022 Recalculations are not recommended when gestational dating by LMP and ultrasound are within 10 days.Performed By: #### RUBIGG #### [facility] [address] [place] [address] Dr. Radha YuInsulin Dep [facility] Doctors HospitalComment on above:Performed By: #### RUBIGG #### [facility] [address] [place] [address] Dr. Radha YuInterpretationThe Christ HospitalComment on above: Result Comment: Interpretation: Screen Negative . This result is screen [...] Customer Services to discuss available options. The [employer] recommends amniocentesis be offered to women age 35 and older.Performed By: #### RUBIGG #### [facility] [address] [place] [address] Dr. Radha Sosa Age at ED[age] yrLakeHealth TriPoint Medical CenterComment on above:Performed By: #### RUBIGG #### [facility] [address] [place] [address] Dr. Radha Figueredoltiplasher [facility] HospitalComment on above: Performed By: #### RUBIGG #### [facility] [address] [place] [address] Dr. Radha YuOSBR Risk 1 [id number] TriPoint Medical CenterComment on above: Performed By: #### RUBIGG #### [facility] [address] [address] [address] Radha YuPDF.NormalCleveland Clinic Union HospitalComment on above:Performed By: #### RUBIGG #### [facility] [address] [address] [address] Radha YuRaceCaucasianNormalCleveland Clinic Union HospitalComment on above: Performed By: #### RUBIGG #### [facility] [address] [address] [address] Radha YuTest Results:NegativeNormalThe [facility] CenterComment on above: Performed By: #### RUBIGG #### [facility] [address] [address] [address] Radha YuUS PREG ANATOMY SINGLEon [id number] PREG ANATOMY SINGLE EXAMINATION: US PREG ANATOMY [...] weeks 4 days MIKE by current US: [id number] IMPRESSION: 1. Single live intrauterine with growth detailed above. 2. No appreciable abnormality. Electronically authenticated by: MLE OLIVIER Date: 2022-07-14 08:53NoAdena Health SystemHE B SURFACE ANTIGEN SCREENon 07-73-8932BZvCp ScreenNegative NormalNegativeThe Trinity Health System East Campusment on above:Performed By: #### HBSANS #### [facility] [address] [place] [address] Dr. Rdaha VillaPATITIS C VIRUS AB W/ REFLEX QUANTon [id number] AB<0.1Normal 0.0-0.9The [facility] on above:Performed By: #### HCVPCRR #### [facility] [address] [place] [address] Dr. Radha YuInterpretation:CommentShelby Memorial Hospital on above:Result Comment: Negative Not infected with HCV, unless recent infection is suspected or other evidence exists to indicate HCV infection.Performed By: #### HCVPCRR #### [facility] [facility] [address] [place] [address] Dr. Radha Jackson 1 AND 2 WITH REFLEXon 51-22-6849PHE Screen 4th Generation wRfxNon-ReactiveNormalNon ReactiveThe [facility] on above:Result Comment: HIV Negative HIV-1/HIV-2 antibodies and HIV-1 p24 antigen were NOT detected. There is no laboratory evidence of HIV infection.Performed By: #### HCVPCRR #### [facility] [address] [place] [address] Dr. Radha YuRPR QUANTon 77-95-0141Tfeyy Plasma Reagin, QuantNon-Reactive NormalNonRea<1:1The [facility] on above:Result Comment: Please Note: This test does not meet current guidelines for screening and diagnosis of syphilis. This test is intended for following treatment response in patients being treated for syphilis infection. To screen for syphilis infection, a reflex cascade that includes both RPR and a treponema-specific assay should be utilized, such as Treponema pallidum (Syphilis) Screening Muse (519843) or Rapid Plasma Reagin (RPR) Test With Reflex to Quantitative RPR and Confirmatory Treponema pallidum Antibodies (663738).Performed By: #### HCVPCRR #### [facility] [address] [place] [address] Dr. Radha Crespo AB IGGon 42-13-5212Kfvcypj Antibodies, IgG17.60 index NormalImmune >0.99The [facility] CenterComment on above:Result Comment: Non- immune <0.90 Equivocal 0.90 - 0.99 Immune >0.99Performed By: #### RUBIGG #### [facility] [address] [place] [address] Dr. Radha Sarkar AUTO DIFFon 35-60-0531VCKU #0.0 103/ulNormal0.0-0.1The [facility] CenterComment on above:Performed By: #### CBC #### [facility] [address] [place] [address] Dr. Radha YuBasophils/100 WBC (Bld)0.3 %Normal0.2-2.0The [facility] Comment on above:Performed By: #### CBC #### [facility] [address] [place] [address] Dr. Radha Restrepo #0.2 103/ulNormal0.0-0.7The [facility] CenterComment on above: Performed By: #### CBC #### [facility] [address] [place] [address] Dr. Radha Hanosinophils/100 WBC (Bld)1.7 %Normal0.9-7.0The [facility] Comment on above:Performed By: #### CBC #### [facility] [address] [place] [address] Dr. Radha Hanrythrocyte distribution width (RBC) [Ratio]12.3 %Yfztry58.0-15.0 The [facility] CenterComment on above:Performed By: #### CBC #### [facility] [address] [place] [address] Dr. Radha YuHematocrit (Bld) [Volume fraction]38.5 %Dzaihw94.0-48.0The [facility] CenterComment on above:Performed By: #### CBC #### [facility] [address] [place] [address] Dr. Radha YuHemoglobin (Bld) [Mass/Vol]12.9 g/zTGzcawl33.0-16.0The [facility] CenterComment on above:Performed By: #### CBC #### [facility] [address] [place] [address] Dr. Radha Simmons #0.01 10e3/ulNormal0.00-0.03The [facility] CenterComment on above:Performed By: #### CBC #### [facility] [address] [place] [address] Dr. Radha Simmons %0.1 %Normal0.0-0.5The [facility] CenterComment on above: Performed By: #### CBC #### [facility] [address] [place] [address] Dr. Radha Penny #1.9 103/ulNormal1.2-3.8The [facility] CenterComment on above:Performed By: #### CBC #### [facility] [address] [place] [address] Dr. Radha Candelariohocytes/100 WBC (Bld)21.3 %Owunhc94.5-60.0The [facility] CenterComment on above:Performed By: #### CBC #### [facility] [address] [place] [address] Dr. Radha CohnUAL DIFF REQNONormalThe [facility] CenterComment on above: Performed By: #### CBC #### [facility] [address] [place] [address] Dr. Radha Richard (RBC) [Entitic mass]31.5 cyWymnms91.7-34.0The [facility] CenterComment on above:Performed By: #### CBC #### [facility] [address] [place] [address] Dr. Radha Richard (RBC) [Mass/Vol]33.5 g/zOObfdqf87.9-35.2The [facility] CenterComment on above:Performed By: #### CBC #### [facility] [address] [place] [address] Dr. Radha Odom (RBC) [Entitic vol]93.9 qZMyepwj06.0-99.0The [facility] CenterComment on above:Performed By: #### CBC #### [facility] [address] [place] [address] Dr. Radha Anaya #0.5 103/ulNormal0.3-0.8The [facility] CenterComment on above:Performed By: #### CBC #### [facility] [address] [place] [address] Dr. Radha Kearnsocytes/100 WBC (Bld)6.0 %Normal1.7-12.0The [facility] Comment on above:Performed By: #### CBC #### [facility] [address] [place] [address] Dr. Radha Marx #6.1 103/ulNormal1.4-6.5The [facility] CenterComment on above:Performed By: #### CBC #### [facility] [address] [place] [address] Dr. Radha Schwarzutrophils/100 WBC (Bld)70.6 %Nloxdc93.0-75.0The [facility] CenterComment on above:Performed By: #### CBC #### [facility] [address] [place] [address] Dr. Radha Pattersonlet mean volume (Bld) [Entitic vol]9.8 fLNormal9.5-13.5The [facility] CenterComment on above:Performed By: #### CBC #### [facility] [address] [place] [address] Dr. Radha YuPLT276 103/ctSjwcyh966-702Pkb [facility] CenterComment on above: Performed By: #### CBC #### [facility] [address] [place] [address] Dr. Radha YuRBC4.10 106/ulCritically low4.20-5.40The [facility] on above:Performed By: #### CBC #### [facility] [address] [place] [address] Dr. Radha YuWBC8.7 103/ulNormal4.0-11.0The [facility] on above: Performed By: #### CBC #### [facility] [address] [place] [address] Dr. Radha YuCULTURE URINEon 93-10-0264EFAJZLL URINECulture Observations: LIGHT GROWTH OF MIXED GENITAL SAGRARIO. NO POTENTIAL PATHOGENS SEEN.NormalThe [facility] Campusment on above:Performed By: #### HCVPCRR #### [facility] [address] [place] [address] Dr. Radha YuGLYCOHEMOGLOBIN A1Con 59-81-3058ZBK RECOMMENDATIONSEE BELOWNormal The [facility] CenterComveterans affairs [facility] on above:Result Comment: ADA RECOMMENDED LIMIT 4.0 - 6.0 ADA THERAPEUTIC TARGET < 7.0 ACTION SUGGESTED > 7.0Performed By: #### RUBIGG #### [facility] [address] [place] [address] Dr. Radha YuGlucose [Mass/Vol]91 mg/dLNormalThe [facility] on above:Performed By: #### RUBIGG #### [facility] [address] [place] [address] Dr. Radha YuHbA1c (Bld) [Mass fraction]4.8 %Normal4.5-6.2The [facility] on above:Performed By: #### RUBIGG #### [facility] [address] [place] [address] Dr. Radha Yost BOX TEST PT SEND OUTon [id number] TO REF LAB05/12/[facility]:Performed By: #### NBOX #### [facility] [address] [place] [address] Dr. Radha YuHEBailey A AB TOTALon 93-83-6132Lpp A Ab, TotalNegativeNormalNegative The [facility] CenterComment on above:Performed By: #### HEPBSRF, HEPABT #### [facility] [address] [place] [address] Dr. Radha Irvin B SURFACE ANTIBODY, QUANTon 15-15-7722Trxtdjcvn B Surf AB Xjgun526.8 mIU/mLNormalImmunity>9.9The [facility] CenterComment on above: Result Comment: Status of Immunity Anti-HBs Level Inconsistent with Immunity 0.0 - 9.9 Consistent with Immunity >9.9Performed By: #### HEPBSRF, HEPABT #### [facility] [address] [place] [address] Dr. Radha Carter PREG TVon 81-14-2846JJ PREG TVEXAMINATION: US PREG TV HISTORY: Irregular periods COMPARISON: [...] Electronically authenticated by: FARZANEH CHEUNG Date: 2022-04-22 07:47NoAdena Health SystemHCG-BETA SUBUNIT QUANTon 54-56-2381kTQ,Beta Subunit,Qnt,Serum 274954 mIU/mLNormalThe [facility] CenterComment on above:Result Comment: Female (Non-) 0 - 5 (Postmenopausal) 0 - 8 . Female () Weeks of Gestation 3 6 - 71 4 10 - 750 5 271 - 7007 6 394 - 09344 7 [phone] 8 [phone] -[phone] 9 24769 -[phone] 10 18732 -094168 12 77157 -524196 14 23662 - 18227 15 11058 - 51630 16 2806 - 23904 17 7920 - 92431 18 5885 - 91773 Results confirmed on dilution. Carlos ECLIA methodologyPerformed By: #### RUBIGG #### [facility] [address] [place] [address] Dr. Radha El Quick Testingon 85-51-0893GybhxsEyfjxvcfLezpq FSAstore.com Other Vital Signs Date TimeVital SignValuePerforming RbmhehanpTtetdaym41-73-2936 16:15-0400Body mass index (BMI) [Ratio]27.42 kg/m7Yegsg Bella DO Work Phone: [facility] CenterPgnzaskyio87-35-9713 16:15-0400Body pnokhb03.75 kgCorey Bella DO Work Phone: [facility] CenterCkydhpwbnt79-82-1438 16:15-0400Diastolic blood nhhivhfb13 mm[Hg]Dami Bella DO Work Phone: [facility] CenterEunzaspkkn04-99-1051 16:15-0400Systolic blood kpymbnqk764 mm[Hg]Dami Bella DO Work Phone: [facility] CenterEcmulgjkyv04-46-7566 11:04-0500Body mass index (BMI) [Ratio]27.29 kg/j7Hoxjs Bella DO Work Phone: [facility] CenterLppbfjtumm56-10-0285 11:04-0500Body tavpzo84.39 kgCorey Bella DO Work Phone: [facility] CenterMjpmbzdbvb27-09-3390 15:57-0500Body mass index (BMI) [Ratio]27.19 kg/i9ZfucwijrkRuth Nuno SUMMER COUNSELOR Work Phone: [facility] CenterKcjbiwxeci05-21-8400 15:57-0500Body pcoiaa47.12 kgRuth Nuno SUMMER COUNSELOR Work Phone: [facility] CenterLexzrskjbk67-02-3406 15:57-0500Diastolic blood bcovhoap18 mm[Hg]Ruth Nuno SUMMER COUNSELOR Work Phone: [facility] CenterFnstsnbans16-09-6130 15:57-0500Heart rate72 /min Ruth Nuno SUMMER COUNSELOR Work Phone: [facility] CenterHhvnlrcdtw70-44-4730 15:57-0500Systolic blood mm[Hg]Ruth Nuno SUMMER COUNSELOR Work Phone: [facility] CenterTacpoffqve66-63-3187 14:21-0500Body hnhogb669.1 Tayla Varela MD Work Phone: [facility] CenterTrpunkslgc45-83-2036 14:21-0500Body mass index (BMI) [Ratio]26.96 kg/c7YrgwmAlan Varela MD Work Phone: [facility] CenterYcfqazphku58-09-2788 14:21-0500Body icofst90.48 kgAlan Varela MD Work Phone: [facility] CenterGmbknfraqq67-61-9804 14:21-0500Diastolic blood haqjqdnz32 mm[Hg]Alan Varela MD Work Phone: [facility] CenterShzybrvulq15-24-1355 14:21-0500Heart rate74 /min Alan Varela MD Work Phone: [facility] CenterXswkfmyhhp81-36-3297 14:21-0500Respiratory rate16 /minAlan Varela MD Work Phone: [facility] CenterVlbcpypgri17-21-0179 14:21-0500Systolic blood dvdolbzf640 mm[Hg]Alan Varela MD Work Phone: [facility]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 Negative. HENT: Negative. Eyes: Negative. Respiratory: Negative. Cardiovascular: Negative. Gastrointestinal: Negative. Genitourinary: Negative. Musculoskeletal: Negative. Skin: Negative. Neurological: Negative. All other systems reviewed and are negative. Hematological: Negative. Endocrine: Negative. Allergic/Immunologic: Negative. OBJECTIVE Objective: Physical Exam Constitutional: Appearance: Normal appearance. She is well-developed. Cardiovascular: Rate and Rhythm: Normal rate and regular rhythm. Pulmonary: Effort: Pulmonary effort is normal. Breath sounds: Normal breath sounds. Abdominal: General: Bowel sounds are normal. There is no distension. Palpations: Abdomen is soft. Tenderness: There is no abdominal tenderness. There is no guarding or rebound. Musculoskeletal: General: No swelling. Normal range of motion. Right lower leg: No edema. Left lower leg: No edema. Neurological: Mental Status: She is alert and oriented to person, place, and time. Skin: General: Skin is warm and dry. Psychiatric: Mood and Affect: Mood normal. Behavior: Behavior normal. Vitals and nursing note reviewed. Exam conducted with a assembly hand present. Vitals: Estimated body mass index is 27.42 kg/m as calculated from the following: Height as of 06/22/24: 5' 5 . Weight as of this encounter: 164 lb 12.8 oz. BP: 120/78 No LMP recorded. ASSESSMENT & PLAN ICD-10-CM 1. Complex cyst of left ovary N83.292 2. Complex ovarian cyst N83.299 Pt presents to discuss ultrasound results and pt given tumor markers to have obtained. Pt voiced understanding. Pt will have ultrasound repeated in 10 weeks from 10/04/24. Documented by Melissa Wilson LPN on behalf of: Dami Blanco DO documented in this encounterSaint Joseph Health [id number] History of Present illness Narrative* Belinda Dunham, RANDALL - 09/15/2024 11:00 AM EST Reason for Appointment: Patient ID: Diane Cardoza is a 34 y.o. female who presents for Well Women Visit Patient presents today for Annual Exam. MEDICATIONS Current Outpatient Medications Medication Instructions cholecalciferol (VITAMIN D-3) 500 Units, Daily MULTIPLE MINERALS-VITAMINS PO Take by mouth. NUTRAFOL NON FORMULARY 1 tablet, Daily norethindrone (JENCYCLA) 0.35 mg, Oral, Daily Westfield-3-6-9 capsule 1 capsule, Daily sertraline (Zoloft) 25 MG tablet TAKE 1 AND 1/2 TABLETS BY MOUTH EVERY MORNING ALLERGIES Allergies Allergen Reactions Ceclor [Cefaclor] Penicillins PROBLEMS Active Ambulatory Problems Diagnosis Date Noted Fibrocystic breast disease 05/15/2023 Mixed anxiety and depressive disorder 05/15/2023 Thyroid nodule (CMS/HCC) 10/13/2023 Resolved Ambulatory Problems Diagnosis Date Noted Constipation 05/15/2023 COVID-19 05/15/2023 Past Medical History: Diagnosis Date Abnormal results of thyroid function studies Anemia Anxiety Cystic fibrosis (CMS/HCC) Depression (CMS/HCC) Nontoxic multinodular goiter (CMS/HCC) HISTORY PAST MEDICAL HISTORY SOCIAL HISTORY Past Medical History: Diagnosis Date Abnormal results of thyroid function studies Anemia Anxiety Constipation 05/15/2023 COVID-19 05/15/2023 Cystic fibrosis (CMS/HCC) Depression (CMS/HCC) Fibrocystic breast disease Nontoxic multinodular goiter (CMS/HCC) Social History Tobacco Use Smoking status: Never Passive exposure: Past Smokeless tobacco: Never Vaping Use Vaping status: Never Used Substance Use Topics Alcohol use: Yes Alcohol/week: 0.0 - 1.0 standard drinks of alcohol Drug use: Not on file FAMILY HISTORY Family History Problem Relation Name Age of Onset Asthma Mother Hypertension Mother Hyperlipidemia Mother Infertility Mother Thyroid nodules Mother No Known Problems Father Other (Narrow nasal passages) Brother Other (Large adenoids) Brother Other (Large tongue) Brother Asthma Brother Extrinsic Sleep apnea Brother had trach for a few years- younger brother Breast cancer Maternal Grandmother Heart disease Maternal Grandfather Skin cancer Paternal Grandmother Prostate cancer Paternal Grandfather SURGICAL HISTORY No past surgical history on file. REVIEW OF SYSTEMS Review of Systems: Review of Systems Genitourinary: Positive for menstrual problem and vaginal discharge. All other systems reviewed and are negative. OBJECTIVE Objective: Physical Exam Constitutional: Appearance: Normal appearance. She is well-developed. Genitourinary: Vulva normal. Breasts: Breasts are soft. Right: Normal. Left: Normal. Cardiovascular: Rate and Rhythm: Normal rate and regular rhythm. Pulmonary: Effort: Pulmonary effort is normal. Breath sounds: Normal breath sounds. Abdominal: General: Bowel sounds are normal. There is no distension. Palpations: Abdomen is soft. Tenderness: There is no abdominal tenderness. There is no guarding or rebound. Musculoskeletal: General: No swelling. Normal range of motion. Right lower leg: No edema. Left lower leg: No edema. Neurological: Mental Status: She is alert and oriented to person, place, and time. Skin: General: Skin is warm and dry. Psychiatric: Mood and Affect: Mood normal. Behavior: Behavior normal. Vitals and nursing note reviewed. Exam conducted with a assembly hand present. Vitals: Estimated body mass index is 27.29 kg/m as calculated from the following: Height as of 06/22/24: 5' 5 . Weight as of this encounter: 164 lb. BP: No LMP recorded. ASSESSMENT & PLAN ICD-10-CM 1. Well woman exam with routine gynecological exam Z01.419 Pap Smear HPV DNA probe, amplified 2. Vince thyroiditis ([facility]) E06.3 Annual Exam: Patient presents today for an annual exam. Patient states she is doing well and has complaints of irregular cycles. Patient is currently still breast feeding and will be prescribed Slynd to [facility]. Discussed Endometrial Ablation with patient and patient voiced that her spouse actually hada vasectomy, but has not yet done the follow up semen samples. Patient given information in regardsto Mirena and ablation. Patient to have US and Labs obtained and return to clinic for follow up. Also, upon vaginal exam medication sent in for yeast infection to local pharmacy. Pap was obtained without difficulty. Orders Placed This Encounter Procedures HPV DNA probe, amplified Follow Up: Patient is to return in one year for annual unless needed otherwise. Documented by Belinda Dunham LPN on behalf of: Dami Blanco DO documented in this encounterSaint Joseph Health [id number] Telephone encounter Note* Telephone Encounter - Ruth Nuno NP - 08/19/2024 4:52 PM EST Spoke with pt, Vit B12 WNL, Vit B6 WNL, Mg WNL at 2.1, Ferritin 20-low normal- not taking iron, but has supplements at home ie 18mg. I would enc her to take it daily. SE's nausea, constipation, increase water, frutit/vegetables, can take stool softner. Can make black. Enc high iron foods, red meat nuts, green leafy vegetables, fortified cereal, Poulty, seafood. Had Vit C with it. Vit D 27-low. Wastaking Vit D, but stopped it r/t was trying to do through diet. 2000 international daily. CMP WNL, CBC WNL, Thyroglobulin <1, TPO 13 (was 18), Reverse T3 WNL at 15. Will repeat Vit D and ferritin in 6 months. Thyroid U/S report reviewed-see below. Plan to repeat U/S in approx [address] Varela can see lab and U/S. Dr Varela has TSH and Free T3 and Free T4 per Endos' note (I think before her next appt with him. She is working with director of logistics also. More leafy greens, proteins. Pt appreciated [...] SUJATHA GONZALES MD at 10-Aug-2024 03:49:23 PM [facility] [id number] Miscellaneous Notes* Telephone Encounter - Ruth Nuno NP - 08/19/2024 4:52 PM EST Spoke with pt, Vit B12 WNL, Vit B6 WNL, Mg WNL at 2.1, Ferritin 20-low normal- not taking iron, but has supplements at home ie 18mg. I would enc her to take it daily. SE's nausea, constipation, increase water, frutit/vegetables, can take stool softner. Can make black. Enc high iron foods, red meat nuts, green leafy vegetables, fortified cereal, Poulty, seafood. Had Vit C with it. Vit D 27-low. Wastaking Vit D, but stopped it r/t was trying to do through diet. 2000 international daily. CMP WNL, CBC WNL, Thyroglobulin <1, TPO 13 (was 18), Reverse T3 WNL at 15. Will repeat Vit D and ferritin in 6 months. Thyroid U/S report reviewed-see below. Plan to repeat U/S in approx [address] Varela can see lab and U/S. Dr Varela has TSH and Free T3 and Free T4 per Endos' note (I think before her next appt with him. She is working with director of logistics also. More leafy greens, proteins. Pt appreciated [...] SUJATHA GONZALES MD at 10-Aug-2024 03:49:23 PM [facility] documented in this encounterSaint Joseph Health [id number] History of Present illness Narrative* Ruth Nuno NP - 08/02/2024 4:00 PM EST Images from the original note were not included. Subjective Patient ID: Diane Cardoza is a 34 y.o. female who presents for Weight Gain (Eating healthy, fatigue). HPI: Saw Dr Varela and per pt, he wasn't worried about thyroid. Plans to recheck in 1 year. She has had weight gain 15-20#, he didn't think hormone testing would show anything. Pretty healthy diet- lean meats, a lot of vegetables, but then overeats. Working with director of logistics-Vanessa Diamond she is from [facility]-does visit on line. Fatigue hits around 10AM, [...] past year. A lot of chin hairs, behavioral science chair feels hair is not taking color treatment like a normal person . Needed to use more color/darker color than usual. Having a period every 2 weeks, pt is on Progestin only r/t breast feeding, plans to wean off of breast feeding this month. Pt has appt coming up in Aug with [employer] GRO[employer] Dr Blanco. Review of Systems Constitutional: Positive for appetite change and fatigue. Negative for chills and fever. Appetite is up and down-see HPI HENT: WNL, dry in house. Turned humidifier on now Respiratory: Negative for cough and shortness of breath. Cardiovascular: Negative for chest pain. Gastrointestinal: Negative for abdominal pain and blood in stool. No change in bowels, better with director of logistics help. No GERD Genitourinary: Negative for difficulty urinating and dysuria. Musculoskeletal: No joint pain, calf cramping occ Skin: Acne-see HPI. Pt states she had a weird rash few weeks ago on left inner thigh with several raised bumps-itched. She used anti-itch spray and it helped. Left upper arm had a small pink patch, fading now. Does not think it was ring worm- may have been eczema Neurological: Negative for dizziness [...] Tx of may want to see Dermatology. Willdo lab first Weight gain: Working with a director of logistics. Will get lab - CBC and differential; [...] talk with him about irregular periods and hormonelabs ie FSH, LH, testosterone, ect. PVU she has appt in Aug with him and will discuss F/U if concerns and for wellness. PVU documented in this encounterSaint Joseph Health [id number] History of Present illness Narrative* Alan Varela MD - 06/22/2024 2:40 PM EST Diane Cardoza is a 34 y.o. female Alan Varela MD presents with chief complaint of Thyroid [...] and left lobe 4.7 x 1.5 x 1.1cm. There is 3 x 2 x 2 [...] NUTRAFOL norethindrone (JENCYCLA) 0.35 mg, Oral, Daily [place]-3-6-9 capsule 1 capsule, Daily sertraline (Zoloft) 25 [...] 1 year (around 06/22/2025). documented in this encounterSaint Joseph Health [id number] History of Present illness Narrative* Ruth Nuno NP - 09/22/2023 4:00 PM EST Images from the original note were not included. Subjective Patient ID: Diane Cardoza is a 33 y.o. female who presents for ER Follow-up (Elevated heart rate). HPI: Sx's started the night before she went to the ER (. Could feel heart rate jump ie wasin the 100's all night, bounding, couldn't get warm. Pulse still high in AM. Leiter off. Exhausted and tense upper back, hurt to move head. 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 So went to , they couldn't do anything, so went to ER in [facility] 09/10/23. They did EKG,lab and got IV fluids r/t was dehydrated. [...] what overwhelmed, begin crying, feels not good enoughpretty pretty, lazy, inadequate, stupid. Wants to distancce self, not being able to talk to anyone/embarressed about it. Mess, disorganization, chaos, ineffiencies, wasting time are triggers. Loss offocus motion, forget fullness, fatigue, morning H/A during these periods of time. No thought of hurting self. No energy drinks, no marijuana or street drugs. Rare alcohol ie at [place]. Was drinking 3 cups of regular coffee, [...] neosporin Pt has not seen Derm yet, theydid call her this past week-plans to call [...] TSH 0.25-sl low, Free T4 0.88-WNL, Free T32.13-sl low. See below Pulse fast-good in office [...] antibody; Future - Thyroglobulin; Future Enlarged thyroid (CMS/HCC) Comments: Will get thyroid U/S and TPO, [...] Sx's discussed Rx's sent documented in this encounterSaint Joseph Health [id number] Evaluation note* Encounter Date Diagnosis Assessment Notes Treatment Notes Treatment Clinical Notes Jun, Encounter for screening for othe r viral diseases (ICD-10 - Z11.59) Jun,Other Additional time spent conducting pre-visit phone call, screening for symptoms, instructions on social distancing, application and removal of PPE, and cleaning of examination room, equipment and supplies was preformed. Patient education given for testing methodology and results. Patient care instructions given in writting by [facility] Care At Home document. [place] [email or web address] Other Evaluation noteNortPaoli Hospital [employer] Other Evaluation note* Diagnosis Pulse fast- Primary Unspecified tachycardia Chest tightness Other chest pain Anxiety Anxiety state, unspecified Low TSH level Enlarged thyroid (CMS/HCC) Goiter, unspecified Acute non-recurrent sinusitis of other sinus Benign hydatidiform mole Skin abnormality Unspecified congenital anomaly of the integument [facility] Diagnosis Subclinical hyperthyroidism (CMS/HCC)- Primary Thyrotoxicosis without mention of goiter or other cause, without mention of thyrotoxic crisis or storm Multinodular goiter (CMS/HCC) Nontoxic multinodular goiter [facility]* Diagnosis Mixed anxiety and depressive disorder- Primary Dysthymic disorder Thyroid nodule (CMS/HCC) Nontoxic uninodular goiter Acne, unspecified acne type Weight gain Other symptoms concerning nutrition, metabolism, and development Fatigue, unspecified type Leg cramping Family history of osteoporosis in mother Irregular periods [facility]* Diagnosis Fatigue, unspecified type- Primary Vitamin D deficiency [facility]* Diagnosis Well woman exam with routine gynecological exam Routine gynecological examination Vince thyroiditis (CMS/HCC) Irregular periods/menstrual cycles PCOS (polycystic ovarian syndrome) Polycystic ovaries Yeast infection [facility]* Diagnosis Complex cyst of left ovary Complex ovarian cyst documented in this encounter [facility] Summary Purpose Family History No Family History Records FoundNo Family History Records Found Advance Directives No Advanced Directives Records FoundNo Advanced Directives Records Found Additional Source Comments REASON FOR VISIT (unrecogniz ed section and content) ReasonCommentsER Follow-upElevated heart rateReasonCommentsThyroid Problem Follow-upReasonCommentsWeight GainEating healthy, fatigueReasonCommentsWell Women VisitReasonCommentsFollow-up INFORMATION SOURCE (unrecogn ized section and content) DATE CREATED AUTHOR 12/12/2022 [facility] DATE CREATED AUTHOR AUTHOR'S ORGANIZ ATION 12/22/2024 [facility] EPIC Care Teams (unrecognized sec tion and content) Team MemberRelationshipSpecialtyStart DateEnd Date Janet Sosa MD [address] [place] [address] PCP - [facility]01/15/23Te MemberRelationshipSpecialtyStart DateEnd Date Janet Sosa MD [address] [place] [address] PCP - [facility]01/15/23Team MemberRelationshipSpecialtyStart DateEnd Date Janet Sosa MD [address] [place] [address] [facility]/23Te MemberRelationshipSpecialtyStart DateEnd Date Janet Sosa MD [address] [place] [address] PCP - [facility]01/15/23Team MemberRelationshipSpecialtyStart DateEnd Date WonderJanet mejias MD [address] [place] [address] [facility]/15/23Team MemberRelationshipSpecialtyStart DateEnd Date Janet Sosa MD [address] [place] [address] [facility]01/15/23Team MemberRelationshipSpecialtyStart DateEnd Date Janet Sosa MD [address] [place] [address] PCP - [facility] Medicine01/15/23Team MemberRelationshipSpecialtyStart DateEnd Date Janet Sosa MD [address] [facility] [place] [address] PCP - [facility]01/15/23Team MemberRelationshipSpecialtyStart DateEnd Date WonderJanet mejias MD [address] [facility] [place] [address] [facility]01/15/23Team MemberRelationshipSpecialtyStart DateEnd Date WonderJanet mejias MD [address] [place] [address] [facility]01/15/23 Alan Varela MD [facility] [address] [place] [address] PCP - Medical [facility]03/31/Team MemberRelationshipSpecialty Start DateEnd Date WonderJanet mejias MD [address] [place] [address] [facility] - [facility]01/15/23 Alan Varela MD [address] [place] [address] [facility] - [facility]03/31/2212Te MemberRelationshipSpecialty Start DateEnd Date Janet Sosa MD [address] [place] [address] [facility]01/15/23 Alan Varela MD [address] [place] [address] [facility]03/31/2212Te MemberRelationshipSpecialty Start DateEnd Date Alan Varela MD [address] [place] [address] [facility]03/31/[address] MD [address] [place], [place] [id number] [facility] - [facility]05/11/25 FOR RECORDS PERTAINING TO PATIENTS WHO ARE [...] BE BASED ON THE PRIMARY CLINICAL RECORDS. [facility] provides no warranty or guarantee of the accuracy or completeness of information in this document.
--- OUTSIDE RECORDS SUMMARY | 2025-06-24 11:31 | XMS_ITS | Clinical Summary ---
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 Name Role Phone Alan Varela MD Unavailable [phone] MD Primary Care Provider [phone] Allergies Active AllergyReactionsCriticalityNoted CmqxRgeqonoaQujtbvim22/01/2023 Moirfebllgj39/01/2023 Medications MedicationSigDispense QuantityRefillsLast FilledStart DateEnd DateStatus [place]-3-6-9 capsule Take 1 capsule by mouth DailyActive norethindrone (Jencycla) 0.35 MG tablet Indications:Uses controlTake 1 tablet (0.35 mg) by mouth Daily 28 tablet 1204Active NON FORMULARY Take 1 tablet by mouth Daily Biotoxin BinderActive Drospirenone (Slynd) 4 MG tablet Indications:Well woman exam with routine gynecological exam,Irregular periods/menstrual cyclesTake 1 tablet by mouth Daily 84 tablet 5Active sertraline (Zoloft) 25 MG tablet Indications:AnxietyTake 1.5 tablets (37.5 mg) by mouth Daily 45 tablet 5Active Active Problems ProblemNoted DateDiagnosed DateThyroid xlkgct2610/13/2023Fibrocystic breast gjtptbl2805/15/2023Mixed anxiety and depressive guqhtzga55/29/2023 Resolved Problems ProblemNoted DateDiagnosed DateResolved WzzpYsykbskrmlwy00/29/202302/12/2023 COVID-190/11/2022 Encounters DateTypeDepartmentCare VxcdUbdgvoeyeid17/25/2025Telephone [facility] [address] [place] [address] MD from Last 3 Months Immunizations ImmunizationAdministration DatesNext DuePfizer Purple Cap SARS-CoV-2 Vaccination 07/10/2021,06/05/2021Tdap12/04/2022,05/28/2012 Family History Medical HistoryRelationNameCommentsAsthmaBrotherExtrinsicLarge adenoidsBrother Large tongueBrotherNarrow nasal passagesBrotherSleep apneaBrotherhad trach for a few years- younger brotherNo Known ProblemsFatherHeart diseaseMaternal GrandfatherBreast cancerMaternal GrandmotherAsthmaMotherHyperlipidemiaMother HypertensionMotherInfertilityMotherThyroid nodulesMotherProstate cancerPaternal GrandfatherSkin cancerPaternal GrandmotherRelationNameStatusCommentsBrother3 FatherAliveMaternal GrandfatherDeceasedMaternal GrandmotherMotherAlivePaternal GrandfatherDeceasedPaternal GrandmotherAlive Social History Tobacco UseTypesPacks/DayYears UsedDateSmoking Tobacco: NeverPassive Smoke Exposure: PastSmokeless Tobacco: Never Tobacco Cessation:Counseling Given: Not Answered Alcohol UseStandard Drinks/WeekCommentsYes0 (1 standard drink = 0.6 oz pure alcohol)Humiliation, Afraid, Rape, and Kick questionnaireAnswerDate Recorded Within the last year, have you been afraid of your partner or ex-partner?No 05/18/2023Within the last year, have you been humiliated or emotionally abused in other ways by your partner or ex-partner?No05/18/2023Within the last year, have you been kicked, hit, slapped, or otherwise physically hurt by your partner or ex-partner?No05/18/2023Within the last year, have you been raped or forced to have any kind of sexual activity by your partner or ex-partner?No05/18/2023 Social Connection and Isolation PanelAnswerDate RecordedIn a typical week, how many times do you talk on the phone with family, friends, or neighbors?Once a week05/18/2023How often do you get together with friends or relatives?Once a week05/18/2023How often do you attend taoism or rastafari services?Never 05/18/2023o you belong to any clubs or organizations such as taoism groups, unions, fraternal or athletic groups, or school groups?No05/18/2023How often do you attend meetings of the clubs or organizations you belong to?Never05/18/2023 Are you , , , , never , or living with a partner?Gsmgjpj6105/18/2023UDIT-CAnswerDate RecordedQ1: How often do you have a drink containing alcohol?Monthly or less09/22/2023Q2: How many drinks containing alcohol do you have on a typical day when you are drinking?1 or Q3: How often do you have six or more drinks on one occasion?Never09/22/2023Overall Financial Resource Strain (CARDIA)AnswerDate RecordedHow hard is it for you to pay for the very basics like food, housing, medical care, and heating?Not hard at all05/18/2023HQ-2AnswerDate RecordedPatient Health Questionnaire-2 Score1 10/13/2023[facility] Occup[facility] - Occupational Stress QuestionnaireAnswerDate RecordedDo you feel stress - tense, restless, nervous, or anxious, or unable to sleep at night because yourmind is troubled all the time - these days?Only a tzmrbv0505/18/2023Exercise Vital SignAnswerDate Recorded On average, how many days per week do you engage in moderate to strenuous exercise (like a brisk walk)?5 days05/18/2023On average, how many minutes do you engage in exercise at this level?20 min05/18/2023Hunger Vital SignAnswerDate RecordedWithin the past 12 months, you worried that your food would run out before you got the money to buymore.Never true05/18/2023Within the past 12 months, the food you bought just didn't last and you didn't have money to get more.Never true05/18/2023RAPARE - TransportationAnswerDate RecordedIn the past 12 months, has lack of transportation kept you from medical appointments or from getting medications?No05/18/2023In the past 12 months, has lack of transportation kept you from meetings, work, or from getting things needed for daily living?No05/18/2023Housing Stability Vital SignAnswerDate RecordedIn the last 12 months, was there a time when you were not able to pay the mortgage or rent on time?No05/18/2023In the last 12 months, how many places have you lived?1 05/18/2023In the last 12 months, was there a time when you did not have a steady place to sleep or slept in ashelter (including now)?No05/18/2023Comments UnknownSex and Gender InformationValueDate RecordedSex Assigned at BirthNot on fileLegal ZglDjgask56/15/2023 7:25 PM EDTGender IdentityNot on fileSexual OrientationNot on file Last Filed Vital Signs Vital SignReadingTime TakenCommentsBlood Zwseuise183/7804 4:15 PM EDT Anwln567008/02/2024 3:57 PM ESTTemperature--Respiratory Rkdy741908/22/2023 2:21 PM ESTOxygen Tzzzqvaprp64%12/14/2023 12:07 PM EDTInhaled Oxygen Concentration-- Cywrra06.8 kg (164 lb 12.8 oz)11/16/2024 4:15 PM FDSLcquhd809.1 cm (5' 5 ) 06/22/2024 2:21 PM ESTBody Mass Index27.42108/22/2023 2:21 PM EST Plan of Treatment DateTypeDepartmentCare Team (Latest Contact Info)Zijaofxtuua23/12/2025 11:40 AM ESTTelemedicine [facility] [place] [facility] [address] [place] [phone] Alan Varela MD [address] [place] [address] 08/07/2025 3:50 PM ESTOffice Visit [facility] [place] [facility] [address] [place] [address] Tawny Garcia MD [address] [place] [address] 09/25/2025 4:00 PM ESTOffice Visit [facility] [address] [place] [address] Jose Juan Blanco DO [address] [place] [address] Health MaintenanceDue DateLast DoneCommentsCOVID-19 Vaccine (2024- season) , 06/05/2021Influenza Vaccine (#1)2025Pap Smear 801/, 4Cervical Cancer Tixyewueu31/16/2029HPV/Cotest 09/01/2028Pneumococcal Vaccine: Pediatrics (0 to 5 Years) and At-Risk Patients (6 to 64 Years)Aged OutNo longer eligible based on patient's age to complete this topic Procedures Procedure NamePriorityDate/TimeAssociated DiagnosisCommentsPAP SMEARRoutine 09/15/2024 12:00 AM ESTfrom Last 3 Months or Most Recently Relevant to Health Maintenance Results * Pap Smear (09/15/2024 12:00 AM EST)Specimen (Source)Anatomical Location / LateralityCollection Method / VolumeCollection TimeReceived TimeSwabCervical swab / Unknown Narrative Authorizing ProviderResult TypeResult StatusFazio Nurse [facility] CYTOLOGY ORDERABLESFinal ResultPerforming OrganizationAddressCity/State/ZIP CodePhone Number EXTERNAL LAB from Last 3 Months or Most Recently Relevant to Health Maintenance Insurance * Guarantor: Diane CardozaAccount TypeRelation to PatientDate of BirthPhone Billing AddressPersonal/ZxxisfQoug[address] [phone] Care Teams Team MemberRelationshipSpecialtyStart DateEnd Date Alan Varela MD [address] [facility] [place] [address] PCP - Medical [facility]03/31/[address] MD [address] [place] [address] [facility] - [facility]05/11/25
[2025-06-24 12:07] LABS: Free T3 2.73 pg/mL (2.18-3.98); Thyroid Stimulating Hormone 1.959 uIU/mL (0.358-3.740)
== END 2025-06-24 11:26 | disposition home or self-care (01) ==
PROVIDERS: PCP Nurse Practitioner Family; Visit Provider Internal Medicine
DX: E05.90 Thyrotoxicosis, unspecified without thyrotoxic crisis or storm (principal)
CPT/HCPCS: 36415; 84439; 84443; 84481